=== PATIENT | male | born 1950 | race Caucasian/White ===

== ENCOUNTER 2018-01-20 10:05 | Observation (INO) | payer OTHER, SELFPAY ==
--- NOTE | 2018-01-20 10:27 | ED.WEAKNESS ---
HPI - Weakness General Chief complaint: Weakness Stated complaint: LEFT LEG 'ALL OVER THE PLACE' Time Seen by Provider: 01/20/18 10:05 Source: patient Mode of arrival: ambulatory Limitations: no limitations History of Present Illness HPI Narrative: Patient presents to the emergency department this morning with a chief complaint of left leg feeling weird since last night at 11:00 p.m.. He denies any injury, fever chills, or other neurologic symptoms such as blurred vision trouble with speech or thought process. He denies any history of the same or history of stroke or TIA. He does have a longstanding history of a lumbar problem and he had some weakness in his left great toe but states this is a tremendous departure from the normal for him. MD Complaint: focal weakness Onset (ago): hour(s) (2299 last night) Duration: constant Location: [facility] Migration: none Severity: mild Related Data Home Medications Medication Instructions Recorded Confirmed doxepin 25 mg PO #0 02/22/13 meloxicam [Mobic] 15 mg PO [facility] #0 10/29/17 Allergies Allergy/AdvReac Type Severity Reaction Status Date / Time No Known Drug Allergies Allergy Verified 01/20/18 11:51 Review of Systems Review of Systems All systems reviewed & are unremarkable except as noted in HPI and below Constitutional Denies chills, Denies excessive sweating, Denies fatigue, Denies fever(s), Denies lethargy and Reports weakness Eyes Denies change in vision, Denies eye discharge, Denies irritation and Denies loss of vision Cardiovascular Denies dyspnea and Denies dyspnea on exertion Respiratory Denies cough, Denies dyspnea, Denies dyspnea on exertion and Denies wheezing Genitourinary Denies hematuria, Denies flank pain, Denies urinary incontinence and Denies urinary urgency Musculoskeletal Reports system reviewed and no additional complaints, except as docu, Reports abnormal gait and Reports muscle weakness Integumentary/Breasts Denies pruritus, Denies erythema, Denies rash and Denies wounds Neurologic Reports abnormal gait, Denies confusion, Denies loss of vision and Reports weakness Comments: NIH Stroke Scale 1a. LOC: Patient is alert and keenly responsive (0) 1b. LOC Questions: Patient answers both LOC questions accurately (0) 1c. LOC Commands: Patient performs both tasks correctly (0) 2. Best Gaze: Normal (0) 3. Visual: No visual loss (0) Psychiatric Denies anxiety, Denies confusion, Denies depression, Denies homicidal ideation and Denies suicidal ideation Endocrine Denies excessive sweating and Denies fatigue Hematologic/Lymphatic Denies easy bleeding Allergic/Immunologic Denies wheezing PFSH Medical History HTN (hypertension) (Chronic) Hyperlipidemia (Chronic) Peripheral neuropathy (Chronic) Exam Narrative Exam Narrative: Pleasant 67-year-old male in no significant distress Const General: cooperative and well developed Nutritional Appearance: well nourished Orientation: alert, awake, oriented x3 and not confused [facility] Head: normocephalic and atraumatic Ears: external ears normal and TM's normal bilaterally Nose: external nose normal and No nasal discharge Face and sinus: sinuses nontender, face symmetric, no sinus tenderness and No dry mucous membranes Mouth: oral mucosae normal and moist mucous membranes Teeth and gingiva: dentition normal Throat: tonsils normal and uvula midline Neck Neck: normal visual inspection, trachea midline, No lymphadenopathy, No midline deformity and No JVD Lymphatic: No lymphedema Resp Effort & Inspection: normal respiratory effort, able to speak in complete sentences, no respiratory distress and no use of accessory muscles Auscultation: clear to auscultation bilaterally, no rales, no rhonchi and no wheezes GI Inspection: non-distended Palpation: soft, no hepatosplenomegaly, No guarding, No pulsatile mass and No tender Auscultation: normal bowel sounds Back/Spine/Pelvis Back: No CVA tenderness Cervical Spine: cervical ROM normal and No pain with cervical ROM Thoracic/Lumbar Spine: thoracic and lumbar spine normal to inspection Other: No signs of cauda equina such as saddle anesthesia Skin General: no rashes or lesions noted, No jaundice and No petechiae Neuro General: alert, awake and oriented x3 Cranial Nerves: CN's II-XI intact bilaterally Speech: speech normal Motor: No strength 5/5 throughout Sensory Exam: no sensory deficits noted Coordination: gogdbv-cu-kxgn test normal and bfrf-wy-dkpx test normal Pupils: Normal pupillary reactivity/response: bilateral Other: NIH Stroke Scale 1a. LOC: Patient is alert and keenly responsive (0) 1b. LOC Questions: Patient answers both LOC questions accurately (0) 1c. LOC Commands: Patient performs both tasks correctly (0) 2. Best Gaze: Normal (0) 3. Visual: No visual loss (0) 4. Facial palsy: Normal symmetrical movements (0) 5. Motor arm: No drift (0) 6. Motor le - LEFT LEG 7. Limb ataxia: Absent (0) 8. Sensory: Normal (0) 9. Best language: No aphasia; normal (0) 10. Dysarthria: Normal (0) 11. Extinction and inattention: No abnormality (0) NIHSS: 1 MDM - Weakness Medical Records Attestation: I reviewed the patient's medical records. Lab Data Attestation: I reviewed the patient's lab results. Result diagrams: 01/20/18 11:02 Lab Results 01/20/18 01/20/18 Range/Units 11:02 11:02 PT 11.5 (10.1-12.7) SECONDS INR 1.1 (0.9-1.3) APTT 31 (26.4-36.2) SECONDS Sodium 137 (137-145) mmol/L Potassium 4.3 (3.4-5.1) mmol/L Chloride 101.0 (98-107) mmol/L Carbon Dioxide 24.0 (22-32) mmol/L BUN 12.0 (9-20) mg/dL Creatinine 1.00 (0.66-1.25) mg/dL Estimated GFR > 60.0 (>60) mL/min BUN/Creatinine Ratio 12.0 (6-22) Glucose 181 H (80-110) mg/dL Calcium 9.1 (8.4-10.2) mg/dL Imaging Data CT scan - head: Radiologist's impression: PROCEDURE: CT HEAD/BRAIN WO CON INDICATIONS: stroke symptoms since 2300 hours. LLE weakness/ataxia TECHNIQUE: Noncontrast 4.5 mm thick angled axial sections acquired from the foramen magnum to the vertex, with coronal and sagittal reformats. For radiation dose reduction, the following was used: automated exposure control, adjustment of mA and/or kV according to patient size. COMPARISON: None. FINDINGS: Image quality: Excellent. CSF spaces: Basal cisterns are patent. No extra-axial fluid collections. The ventricles are symmetric in size and shape. Brain: No intracranial bleeds or masses. There is cerebral volume loss for age, with resultant ventricular and sulcal prominence. There are periventricular and deep white matter chronic small vessel ischemic changes. Incidental note made of cavum septum pellucidum. There is intracranial internal carotid artery atherosclerosis. Skull and face: Calvarium and visualized facial bones appear intact, without suspicious lesions. Sinuses: Visualized sinuses and mastoids are clear. IMPRESSION: No acute intracranial disease process. Dictated by: Shyanne Jones MD, PhD on 01/20/2018 at 11:11 Approved by: Shyanne Jones MD, PhD on 01/20/2018 at 11:16 ECG Data Attestation: I personally reviewed and interpreted this ECG as follows: Prior ECG tracings: not available for review Interpretation: Normal sinus rhythm with a rate of 77. No ST or T-wave abnormalities consistent with ischemia Course Orders Ordered: ED Orders 01/20/18 10:46 CT head/brain wo con Stat Rapid Drug Screen, Urine Stat EKG-12 Lead Stat 01/20/18 11:02 Basic Metabolic Panel Stat Partial Thromboplastin Time Stat Prothrombin Time INR Stat 01/20/18 13:01 Complete Blood Count AUTO DIFF Stat Discontinued Medications Aspirin (Aspirin Chew) 324 mg PO NOW ONE Stop: 01/20/18 10:47 Last Admin: 01/20/18 11:00 Dose: 324 mg Sodium Chloride (Normal Saline 0.9%) 1,000 mls @ 150 mls/hr IV CONT NASIR Last Admin: 01/20/18 11:18 Dose: 150 mls/hr Consultations Consultation #1: Jana is happy to accept on his service Last Vital Signs Pulse 65 01/20/18 12:25 Resp 14 01/20/18 12:25 BP 146/78 H 01/20/18 12:25 Pulse Ox 97 01/20/18 12:25 Discharge Plan Departure Patient Disposition: Admitted as Observation Discharge Date/Time: 01/20/18 13:21 Admit Date/Time: 01/20/18 13:02 Admit Provider: Uday Bates
--- NOTE | 2018-01-20 10:46 | DI.CT.S_ITS ---
PROCEDURE: CT HEAD/BRAIN WO CON INDICATIONS: stroke symptoms since 2300 hours. LLE weakness/ataxia TECHNIQUE: Noncontrast 4.5 mm thick angled axial sections acquired from the foramen magnum to the vertex, with coronal and sagittal reformats. For radiation dose reduction, the following was used: automated exposure control, adjustment of mA and/or kV according to patient size. COMPARISON: None. FINDINGS: Image quality: Excellent. CSF spaces: Basal cisterns are patent. No extra-axial fluid collections. The ventricles are symmetric in size and shape. Brain: No intracranial bleeds or masses. There is cerebral volume loss for age, with resultant ventricular and sulcal prominence. There are periventricular and deep white matter chronic small vessel ischemic changes. Incidental note made of cavum septum pellucidum. There is intracranial internal carotid artery atherosclerosis. Skull and face: Calvarium and visualized facial bones appear intact, without suspicious lesions. Sinuses: Visualized sinuses and mastoids are clear. IMPRESSION: No acute intracranial disease process. Dictated by: Shyanne Jones MD, PhD on 01/20/2018 at 11:11 Approved by: Shyanne Jones MD, PhD on 01/20/2018 at 11:16
[2018-01-20] MEDS: ASPIRIN 81 MG TAB 324 MG PO (11:00)
--- NOTE | 2018-01-20 11:11 | ED_ITS ---
HPI - Weakness General Chief complaint: Weakness Stated complaint: LEFT LEG 'ALL OVER THE PLACE' Time Seen by Provider: 01/20/18 10:05 Source: patient Mode of arrival: ambulatory Limitations: no limitations History of Present Illness HPI Narrative: Patient presents to the emergency department this morning with a chief complaint of left leg feeling weird since last night at 11:00 p.m.. He denies any injury, fever chills, or other neurologic symptoms such as blurred vision trouble with speech or thought process. He denies any history of the same or history of stroke or TIA. He does have a longstanding history of a lumbar problem and he had some weakness in his left great toe but states this is a tremendous departure from the normal for him. MD Complaint: focal weakness Onset (ago): hour(s) (2299 last night) Duration: constant Location: [facility] Migration: none Severity: mild Related Data Home Medications Medication Instructions Recorded Confirmed doxepin 25 mg PO #0 02/22/13 meloxicam [Mobic] 15 mg PO [facility] #0 10/29/17 Allergies Allergy/AdvReac Type Severity Reaction Status Date / Time No Known Drug Allergies Allergy Verified 01/20/18 11:51 Review of Systems Review of Systems All systems reviewed & are unremarkable except as noted in HPI and below Constitutional Denies chills, Denies excessive sweating, Denies fatigue, Denies fever(s), Denies lethargy and Reports weakness Eyes Denies change in vision, Denies eye discharge, Denies irritation and Denies loss of vision Cardiovascular Denies dyspnea and Denies dyspnea on exertion Respiratory Denies cough, Denies dyspnea, Denies dyspnea on exertion and Denies wheezing Genitourinary Denies hematuria, Denies flank pain, Denies urinary incontinence and Denies urinary urgency Musculoskeletal Reports system reviewed and no additional complaints, except as docu, Reports abnormal gait and Reports muscle weakness Integumentary/Breasts Denies pruritus, Denies erythema, Denies rash and Denies wounds Neurologic Reports abnormal gait, Denies confusion, Denies loss of vision and Reports weakness Comments: NIH Stroke Scale 1a. LOC: Patient is alert and keenly responsive (0) 1b. LOC Questions: Patient answers both LOC questions accurately (0) 1c. LOC Commands: Patient performs both tasks correctly (0) 2. Best Gaze: Normal (0) 3. Visual: No visual loss (0) Psychiatric Denies anxiety, Denies confusion, Denies depression, Denies homicidal ideation and Denies suicidal ideation Endocrine Denies excessive sweating and Denies fatigue Hematologic/Lymphatic Denies easy bleeding Allergic/Immunologic Denies wheezing PFSH Medical History HTN (hypertension) (Chronic) Hyperlipidemia (Chronic) Peripheral neuropathy (Chronic) Exam Narrative Exam Narrative: Pleasant 67-year-old male in no significant distress Const General: cooperative and well developed Nutritional Appearance: well nourished Orientation: alert, awake, oriented x3 and not confused [facility] Head: normocephalic and atraumatic Ears: external ears normal and TM's normal bilaterally Nose: external nose normal and No nasal discharge Face and sinus: sinuses nontender, face symmetric, no sinus tenderness and No dry mucous membranes Mouth: oral mucosae normal and moist mucous membranes Teeth and gingiva: dentition normal Throat: tonsils normal and uvula midline Neck Neck: normal visual inspection, trachea midline, No lymphadenopathy, No midline deformity and No JVD Lymphatic: No lymphedema Resp Effort & Inspection: normal respiratory effort, able to speak in complete sentences, no respiratory distress and no use of accessory muscles Auscultation: clear to auscultation bilaterally, no rales, no rhonchi and no wheezes GI Inspection: non-distended Palpation: soft, no hepatosplenomegaly, No guarding, No pulsatile mass and No tender Auscultation: normal bowel sounds Back/Spine/Pelvis Back: No CVA tenderness Cervical Spine: cervical ROM normal and No pain with cervical ROM Thoracic/Lumbar Spine: thoracic and lumbar spine normal to inspection Other: No signs of cauda equina such as saddle anesthesia Skin General: no rashes or lesions noted, No jaundice and No petechiae Neuro General: alert, awake and oriented x3 Cranial Nerves: CN's II-XI intact bilaterally Speech: speech normal Motor: No strength 5/5 throughout Sensory Exam: no sensory deficits noted Coordination: auzfom-mk-ogct test normal and oszi-xi-spzu test normal Pupils: Normal pupillary reactivity/response: bilateral Other: NIH Stroke Scale 1a. LOC: Patient is alert and keenly responsive (0) 1b. LOC Questions: Patient answers both LOC questions accurately (0) 1c. LOC Commands: Patient performs both tasks correctly (0) 2. Best Gaze: Normal (0) 3. Visual: No visual loss (0) 4. Facial palsy: Normal symmetrical movements (0) 5. Motor arm: No drift (0) 6. Motor le - LEFT LEG 7. Limb ataxia: Absent (0) 8. Sensory: Normal (0) 9. Best language: No aphasia; normal (0) 10. Dysarthria: Normal (0) 11. Extinction and inattention: No abnormality (0) NIHSS: 1 MDM - Weakness Medical Records Attestation: I reviewed the patient's medical records. Lab Data Attestation: I reviewed the patient's lab results. Result diagrams: 01/20/18 11:02 Lab Results 01/20/18 01/20/18 Range/Units 11:02 11:02 PT 11.5 (10.1-12.7) SECONDS INR 1.1 (0.9-1.3) APTT 31 (26.4-36.2) SECONDS Sodium 137 (137-145) mmol/L Potassium 4.3 (3.4-5.1) mmol/L Chloride 101.0 (98-107) mmol/L Carbon Dioxide 24.0 (22-32) mmol/L BUN 12.0 (9-20) mg/dL Creatinine 1.00 (0.66-1.25) mg/dL Estimated GFR > 60.0 (>60) mL/min BUN/Creatinine Ratio 12.0 (6-22) Glucose 181 H (80-110) mg/dL Calcium 9.1 (8.4-10.2) mg/dL Imaging Data CT scan - head: Radiologist's impression: PROCEDURE: CT HEAD/BRAIN WO CON INDICATIONS: stroke symptoms since 2300 hours. LLE weakness/ataxia TECHNIQUE: Noncontrast 4.5 mm thick angled axial sections acquired from the foramen magnum to the vertex, with coronal and sagittal reformats. For radiation dose reduction, the following was used: automated exposure control, adjustment of mA and/or kV according to patient size. COMPARISON: None. FINDINGS: Image quality: Excellent. CSF spaces: Basal cisterns are patent. No extra-axial fluid collections. The ventricles are symmetric in size and shape. Brain: No intracranial bleeds or masses. There is cerebral volume loss for age , with resultant ventricular and sulcal prominence. There are periventricular and deep white matter chronic small vessel ischemic changes. Incidental note made of cavum septum pellucidum. There is intracranial internal carotid artery atherosclerosis. Skull and face: Calvarium and visualized facial bones appear intact, without suspicious lesions. Sinuses: Visualized sinuses and mastoids are clear. IMPRESSION: No acute intracranial disease process. Dictated by: Shyanne Jones MD, PhD on 01/20/2018 at 11:11 Approved by: Shyanne Jones MD, PhD on 01/20/2018 at 11:16 ECG Data Attestation: I personally reviewed and interpreted this ECG as follows: Prior ECG tracings: not available for review Interpretation: Normal sinus rhythm with a rate of 77. No ST or T-wave abnormalities consistent with ischemia Course Orders Ordered: ED Orders 01/20/18 10:46 CT head/brain wo con Stat Rapid Drug Screen, Urine Stat EKG-12 Lead Stat 01/20/18 11:02 Basic Metabolic Panel Stat Partial Thromboplastin Time Stat Prothrombin Time INR Stat 01/20/18 13:01 Complete Blood Count AUTO DIFF Stat Discontinued Medications Aspirin (Aspirin Chew) 324 mg PO NOW ONE Stop: 01/20/18 10:47 Last Admin: 01/20/18 11:00 Dose: 324 mg Sodium Chloride (Normal Saline 0.9%) 1,000 mls @ 150 mls/hr IV CONT NASIR Last Admin: 01/20/18 11:18 Dose: 150 mls/hr Consultations Consultation #1: Jana is happy to accept on his service Last Vital Signs Pulse 65 01/20/18 12:25 Resp 14 01/20/18 12:25 BP 146/78 H 01/20/18 12:25 Pulse Ox 97 01/20/18 12:25 Discharge Plan Departure Patient Disposition: Admitted as Observation Discharge Date/Time: 01/20/18 13:21 Admit Date/Time: 01/20/18 13:02 Admit Provider: Uday Bates
[2018-01-20 11:18] LABS: INR 1.1 (0.9-1.3); Prothrombin Time 11.5 SECONDS (10.1-12.7)
[2018-01-20] MEDS: SODIUM CHLORIDE 0.9% 1,000 ML 150 ML IV (11:18)
[2018-01-20 11:20] LABS: PTT Partial Thromboplastin Tim 31 SECONDS (26.4-36.2)
[2018-01-20 11:22] LABS: Calcium 9.1 mg/dL (8.4-10.2); Estimated Glomerular Filt Rate > 60.0 mL/min (>60); Glucose 181 mg/dL (80-110); HEMOLYSIS < 15 (0-50); Potassium 4.3 mmol/L (3.4-5.1); Sodium 137 mmol/L (137-145)
[2018-01-20 11:55] VITALS: BMI 29.2
[2018-01-20 12:25] VITALS: BP 146/78; PULSE 65; RESP 14; O2SAT 97
[2018-01-20 13:11] VITALS: BP 128/76; PULSE 64; RESP 15; O2SAT 96
[2018-01-20 13:30] VITALS: BP 129/78; PULSE 62; RESP 18; TEMP 36.5; O2SAT 97
--- NOTE | 2018-01-20 13:34 | DI.MRI.S_ITS ---
PROCEDURE: MR STROKE Pre- and post-contrast brain MRI, non-contrast brain MR angiogram, pre- and postcontrast neck MR angiogram INDICATIONS: CVA, LLE weakness TECHNIQUE: Brain: Noncontrast axial T1 spin echo, axial T2 fast spin echo, sagittal and axial FLAIR, coronal T2 fast spin echo, axial gradient echo, axial diffusion and ADC through the brain. After the administration of contrast, axial 3D VIBE of the cranial vasculature and brain. Brain MRA: Non-contrast 3-D time of flight MR angiogram, with multiple fcyrxje-ncmwfleuj-mzbaisqvhf (MIP) reformats performed. Neck MRA: Axial and sagittal TruFISP through the neck. Coronal dynamic MR angiogram during administration of contrast in the arterial and venous phases, with 3-dimenstional vpmulpu-yccqhbwvm-wawjczhucf (MIP) reformats constructed from subtraction images. COMPARISON: [facility], CT from 01/20/2018 FINDINGS: Image quality: Excellent. BRAIN: CSF spaces: Ventricles are normal in size and shape. Basal cisterns are patent. No extra-axial fluid collections. Brain: No intracranial bleeds or mass effects. Moise-white matter interface is normal. Diffusion weighted images show no acute ischemic insults. Brainstem appears normal. Normal intravascular flow voids are present. No abnormal intracranial enhancement. There is increased T2 signal in the subcortical and periventricular white matter. Skull and face: Calvarial marrow signal is normal. Orbits appear normal. Sinuses: Sinuses and mastoids are clear. BRAIN MR ANGIOGRAM: Anterior circulation: Intracranial internal carotid arteries are normal in size and enhancement. The flow within the paired anterior cerebral arteries is normal and symmetric. The flow within the middle cerebral arteries is normal and symmetric. The anterior communicating artery is seen. No stenoses, occlusions, or aneurysms. Posterior circulation: The visualized portions of the vertebral arteries demonstrate normal caliber, and join to form a normal appearing basilar artery. The flow within the posterior cerebral arteries is normal and symmetric other than origin of the right posterior cerebral artery which is a benign variant. No stenoses, occlusions, or aneurysms. NECK MR ANGIOGRAM: Carotids: Great vessels demonstrate a conventional anatomy as they arise from the aortic arch. The origins of the common carotid arteries appear patent. The calibers and courses of both common carotid arteries are normal. The bifurcation regions demonstrate hemodynamically insignificant atheromatous plaque bilaterally. The internal carotid arteries demonstrate normal course and caliber. Posterior circulation: The origins of the right vertebral artery appears patent. The left vertebral artery origin is obscured by artifact and cannot be evaluated. More superior portions of both vertebral arteries demonstrate normal course and caliber, and join to form a normal appearing basilar artery. Miscellaneous: Subclavian arteries appear patent. Pre-contrast images through the neck show no soft tissue abnormalities. IMPRESSION: BRAIN MRI: No MRI evidence of acute intracranial pathology. Increased T2 signal in the subcortical and periventricular white matter most with chronic benign ischemic change given the patient's age. BRAIN MR ANGIOGRAM: No MRA evidence of acute intracranial arterial pathology. NECK MR ANGIOGRAM: No MRA evidence of acute arterial pathology in the neck. Dictated by: Merlin Jiménez M.D. on 01/20/2018 at 14:34 Approved by: Merlin Jiménez M.D. on 01/20/2018 at 14:43
[2018-01-20 13:40] LABS: Add Manual Diff / Slide Review NO; Basophils Percent Auto 0.8 % (0-2); Eosinophils Percent Auto 2.9 % (2-4); Hematocrit 39.4 % (41-53); Hemoglobin 13.7 g/dL (13.5-17.5); Lymphocytes Percent Auto 14.5 % (25-40); Mean Corpuscular HGB Conc 34.7 % (30-36); Mean Corpuscular Hemoglobin 31.7 PG (26-34); Mean Corpuscular Volume 91.2 fL (80-100); Neutrophils Absolute Auto 4500 /uL (3000-5900); Neutrophils Percent Auto 76.8 % (50-75); Platelet Count 347 X10^3/uL (150-400); Red Blood Cell Count 4.32 X10^6/uL (4.5-5.9); Red Cell Distribution Width 12.7 % (11.6-14.8); White Blood Cell Count 5.9 X10^3/uL (4.5-11.0)
--- NOTE | 2018-01-20 13:48 | PM.HP.1 ---
History of Present Illness Chief complaint: Stroke Narrative: Dru Mcpherson is a 67 year old male patient of RAHEEM Edwards with history of hypertension, hyperlipidemia, peripheral neuropathy brought by friend to emergency department due to left leg weakness. Patient states he woke up around 10 30 last night and noticed his left leg was extremely weak where he had a hard time walking down the stairs even with holding the hand rail. He states his balance was very unsteady and he almost fell. He managed with difficulty to get back up the stairs to his bedroom and drag himself into bed. He noticed his left leg was still weak when he woke up this morning and eventually called his PCP office who directed him to go to the ER. Patient states he has some mild weakness in the left ankle due to lumbar disease but this weakness is much different and extreme. He denies other symptoms such as loss of vision, headache, facial droop, difficulty with speech, weakness in the arms. Head CT negative for acute findings. EKG with normal rhythm. PFSH Medical History CAD (coronary artery disease) (Acute) Hyperlipidemia (Chronic) HTN (hypertension) (Chronic) Peripheral neuropathy (Chronic) COPD (chronic obstructive pulmonary disease) (Acute) Depression (Acute) Insomnia (Acute) Spinal stenosis (Acute) Surgical History Total knee replacement status (Acute) Social History lives independently: Yes marital status: Smoking Status: Former smoker Meds Generic Name Dose Route Start Last Admin Trade Name Freq PRN Reason Stop Dose Admin Acetaminophen 650 mg 01/20/18 13:29 Tylenol PO Q6HR PRN As Needed for Fever/Mild Pain Atorvastatin Calcium 40 mg 01/20/18 21:00 Lipitor PO BEDTIME NASIR Clopidogrel Bisulfate 75 mg 01/21/18 09:00 Plavix PO DAILY NASIR Doxepin HCl 100 mg 01/20/18 21:00 Sinequan PO BEDTIME NASIR Enoxaparin Sodium 40 mg 01/21/18 09:00 Lovenox SUBCUT DAILY NASIR Gabapentin 900 mg 01/20/18 21:00 Neurontin PO BID NASIR Lisinopril 20 mg 01/21/18 09:00 Zestril PO DAILY NASIR Magnesium Hydroxide 30 ml 01/20/18 13:29 Milk Of Magnesia PO DAILY PRN Constipation Metoprolol Succinate 25 mg 01/21/18 09:00 Toprol Xl PO DAILY NASIR Ondansetron HCl 4 mg 01/20/18 13:29 Zofran IV Q8HR PRN Nausea And Vomiting Temazepam 15 mg 01/20/18 13:43 Resoril PO BEDTIME PRN Sleep Venlafaxine HCl 150 mg 01/21/18 09:00 Effexor Xr PO DAILY NASIR Allergies Allergy/AdvReac Type Severity Reaction Status Date / Time No Known Drug Allergies Allergy Verified 01/20/18 11:51 Review of Systems Review of Systems All systems reviewed & are unremarkable except as noted in HPI and below Exam Vital Signs (past 8 hours): Vital Signs - 8 hr 01/20/18 12:25 01/20/18 13:11 Pulse Rate 65 64 Respiratory Rate 14 15 Blood Pressure 128/76 H Blood Pressure [Right Arm] 146/78 H Pulse Oximetry 97 96 Pulse Oximetry 96 Oxygen Delivery Method Room Air Narrative Exam Narrative: GENERAL: This is an alert well-nourished, well-developed patient, in no acute distress. HEAD: Face symmetric. Atraumatic. Normocephalic. EYES: Pupils equal, round and reactive. Extraocular motions intact. No scleral icterus. No injection or drainage. OROPHARYNX: moist mucosa NECK: Trachea midline. No JVD or lymphadenopathy. CARDIOVASCULAR: Regular rate and rhythm without murmurs, gallops, or rubs. RESPIRATORY: Clear to auscultation bilaterally. GASTROINTESTINAL: Abdomen nondistended, soft, non-tender. No hepato-splenomegaly, or palpable masses. EXTREMITIES: No edema. NEUROLOGICAL: Alert, well oriented, speech is intact, no pronator drift, vymisv-ql-eney intact bilaterally, no discernible weakness at this time in either leg, there is mild difficulty with left heel to joiner, gait not assessed SKIN: warm, dry, no rash Objective Labs Result Diagrams: 01/20/18 Unknown 01/20/18 11:02 Labs: Laboratory Results - last 24 hr 01/20/18 01/20/18 01/20/18 11:02 11:02 Unknown WBC 5.9 RBC 4.32 L Hgb 13.7 Hct 39.4 L MCV 91.2 MCH 31.7 MCHC 34.7 RDW 12.7 Plt Count 347 Neut % (Auto) 76.8 H Lymph % (Auto) 14.5 L [place] % (Auto) 5.0 Eos % (Auto) 2.9 Baso % (Auto) 0.8 Neut # (Auto) 4500 PT 11.5 INR 1.1 APTT 31 Sodium 137 Potassium 4.3 Chloride 101.0 Carbon Dioxide 24.0 BUN 12.0 Creatinine 1.00 Estimated GFR > 60.0 BUN/Creatinine Ratio 12.0 Glucose 181 H Calcium 9.[address] scan - head: Radiologist's impression: No acute findings ECG: Normal sinus rhythm, normal Assessment & Plan Plan: Plan: 1. Probable acute CVA: Patient presents with over 12 hr of left leg weakness with loss of balance. He has multiple stroke risk factors. Currently normotensive with improving neurological exam. Plan: Neuro checks, continue routine BP and cholesterol medications, telemetry, stroke protocol MRI, transthoracic echo, PT and OT consults. He can be on general diet. 2. Hyperglycemia: Glucose 181. Patient without prior history of diabetes. Check hemoglobin A1c. Chem BG 4 times daily. 3. DVT prophylaxis: Lovenox low dose Scores ABCD2 Age >= 60 years: yes Initial BP. Either SBP >= 140 or DBP >= 90.: yes Clinical features of the TIA: unilateral weakness Duration of symptoms: >= 60 minutes History of diabetes: no ABCD2 Score: 6
--- NOTE | 2018-01-20 14:22 | P.HP_ITS ---
History of Present Illness Chief complaint: Stroke Narrative: Dru Mcpherson is a 67 year old male patient of RAHEEM Edwards with history of hypertension, hyperlipidemia, peripheral neuropathy brought by friend to emergency department due to left leg weakness. Patient states he woke up around 10 30 last night and noticed his left leg was extremely weak where he had a hard time walking down the stairs even with holding the hand rail. He states his balance was very unsteady and he almost fell. He managed with difficulty to get back up the stairs to his bedroom and drag himself into bed. He noticed his left leg was still weak when he woke up this morning and eventually called his PCP office who directed him to go to the ER. Patient states he has some mild weakness in the left ankle due to lumbar disease but this weakness is much different and extreme. He denies other symptoms such as loss of vision, headache, facial droop, difficulty with speech, weakness in the arms. Head CT negative for acute findings. EKG with normal rhythm. PFSH Medical History CAD (coronary artery disease) (Acute) Hyperlipidemia (Chronic) HTN (hypertension) (Chronic) Peripheral neuropathy (Chronic) COPD (chronic obstructive pulmonary disease) (Acute) Depression (Acute) Insomnia (Acute) Spinal stenosis (Acute) Surgical History Total knee replacement status (Acute) Social History lives independently: Yes marital status: Smoking Status: Former smoker Meds Generic Name Dose Route Start Last Admin Trade Name Freq PRN Reason Stop Dose Admin Acetaminophen 650 mg 01/20/18 13:29 Tylenol PO Q6HR PRN As Needed for Fever/Mild Pain Atorvastatin Calcium 40 mg 01/20/18 21:00 Lipitor PO BEDTIME NASIR Clopidogrel Bisulfate 75 mg 01/21/18 09:00 Plavix PO DAILY NASIR Doxepin HCl 100 mg 01/20/18 21:00 Sinequan PO BEDTIME NASIR Enoxaparin Sodium 40 mg 01/21/18 09:00 Lovenox SUBCUT DAILY NASIR Gabapentin 900 mg 01/20/18 21:00 Neurontin PO BID NASIR Lisinopril 20 mg 01/21/18 09:00 Zestril PO DAILY NASIR Magnesium Hydroxide 30 ml 01/20/18 13:29 Milk Of Magnesia PO DAILY PRN Constipation Metoprolol Succinate 25 mg 01/21/18 09:00 Toprol Xl PO DAILY NASIR Ondansetron HCl 4 mg 01/20/18 13:29 Zofran IV Q8HR PRN Nausea And Vomiting Temazepam 15 mg 01/20/18 13:43 Resoril PO BEDTIME PRN Sleep Venlafaxine HCl 150 mg 01/21/18 09:00 Effexor Xr PO DAILY NASIR Allergies Allergy/AdvReac Type Severity Reaction Status Date / Time No Known Drug Allergies Allergy Verified 01/20/18 11:51 Review of Systems Review of Systems All systems reviewed & are unremarkable except as noted in HPI and below Exam Vital Signs (past 8 hours): Vital Signs - 8 hr 3 01/20/18 12:25 01/20/18 13:11 Pulse Rate 65 64 Respiratory Rate 14 15 Blood Pressure 128/76 H Blood Pressure [Right Arm] 146/78 H Pulse Oximetry 97 96 Pulse Oximetry 96 Oxygen Delivery Method Room Air Narrative Exam Narrative: GENERAL: This is an alert well-nourished, well-developed patient , in no acute distress. HEAD: Face symmetric. Atraumatic. Normocephalic. EYES: Pupils equal, round and reactive. Extraocular motions intact. No scleral icterus. No injection or drainage. OROPHARYNX: moist mucosa NECK: Trachea midline. No JVD or lymphadenopathy. CARDIOVASCULAR: Regular rate and rhythm without murmurs, gallops, or rubs. RESPIRATORY: Clear to auscultation bilaterally. GASTROINTESTINAL: Abdomen nondistended, soft, non-tender. No hepato- splenomegaly, or palpable masses. EXTREMITIES: No edema. NEUROLOGICAL: Alert, well oriented, speech is intact, no pronator drift, finger- to-nose intact bilaterally, no discernible weakness at this time in either leg, there is mild difficulty with left heel to joiner, gait not assessed SKIN: warm, dry, no rash Objective Labs Result Diagrams: 01/20/18 Unknown 01/20/18 11:02 Labs: Laboratory Results - last 24 hr 01/20/18 01/20/18 01/20/18 11:02 11:02 Unknown WBC 5.9 RBC 4.32 L Hgb 13.7 Hct 39.4 L MCV 91.2 MCH 31.7 MCHC 34.7 RDW 12.7 Plt Count 347 Neut % (Auto) 76.8 H Lymph % (Auto) 14.5 L [place] % (Auto) 5.0 Eos % (Auto) 2.9 Baso % (Auto) 0.8 Neut # (Auto) 4500 PT 11.5 INR 1.1 APTT 31 Sodium 137 Potassium 4.3 Chloride 101.0 Carbon Dioxide 24.0 BUN 12.0 Creatinine 1.00 Estimated GFR > 60.0 BUN/Creatinine Ratio 12.0 Glucose 181 H Calcium 9.[address] scan - head: Radiologist's impression: No acute findings ECG: Normal sinus rhythm, normal Assessment & Plan Plan: Plan: 1. Probable acute CVA: Patient presents with over 12 hr of left leg weakness with loss of balance. He has multiple stroke risk factors. Currently normotensive with improving neurological exam. Plan: Neuro checks, continue routine BP and cholesterol medications, telemetry, stroke protocol MRI, transthoracic echo, PT and OT consults. He can be on general diet. 2. Hyperglycemia: Glucose 181. Patient without prior history of diabetes. Check hemoglobin A1c. Chem BG 4 times daily. 3. DVT prophylaxis: Lovenox low dose Scores ABCD2 Age >= 60 years: yes Initial BP. Either SBP >= 140 or DBP >= 90.: yes Clinical features of the TIA: unilateral weakness Duration of symptoms: >= 60 minutes History of diabetes: no ABCD2 Score: 6
[2018-01-20 14:37] LABS: Hemoglobin A1C% w Est Avg Glu 5.8 % (4.0-6.0)
[2018-01-20 14:51] VITALS: BMI 29.2
--- NOTE | 2018-01-20 16:28 | PC.NURSE ---
Addendum entered by London Rodríguez R.N. 01/20/18 17:35: Call placed to Dr. Bates regarding orders on patient. All orders were cancelled. This nurse called to pharmacy regarding medication orders as patient has none. Per Dr. Bates this occurred during the transfer phase from [facility] to [facility]. states he will re-order all orders that were prev. placed on patient but where d/c'd. Original Note: patient is resting in bed peacefully watching t.v A&O x3. Bedside NIH screen done with patient by this nurse, patient passed w/ flying colors. Denies any pain during assessment. No notable weakness in any extremities. Call light w/ in reach, bed in low pos. states understanding ot use light w/ needs.
[2018-01-20 18:35] VITALS: BP 124/68; PULSE 59
[2018-01-20] MEDS: LISINOPRIL 20 MG TABLET PO (18:35)
[2018-01-20] MEDS: ASPIRIN EC 81 MG TABLET PO (18:35)
[2018-01-20 19:30] VITALS: BP 119/73; PULSE 56; RESP 17; TEMP 36.2; O2SAT 95
[2018-01-20] MEDS: GABAPENTIN 300 MG CAPSULE 900 MG PO (21:23)
[2018-01-20] MEDS: DOXEPIN 25 MG CAPSULE 100 MG PO (21:23)
[2018-01-21] VITALS (7 sets, daily range): BP systolic 103–117; BP diastolic 70–75; PULSE 57–70; RESP 16–19; TEMP 36.6–37.2; O2SAT 93–97
[2018-01-21] MEDS: ASPIRIN EC 81 MG TABLET PO (09:37)
[2018-01-21] MEDS: GABAPENTIN 300 MG CAPSULE 900 MG PO (09:38)
[2018-01-21] MEDS: ATORVASTATIN 20 MG TABLET 40 MG PO (09:38)
[2018-01-21] MEDS: VENLAFAXINE ER 75 MG CAP 150 MG PO (09:39)
[2018-01-21] MEDS: MELOXICAM 7.5 MG TABLET 15 MG PO (09:40)
[2018-01-21] MEDS: SODIUM CHLORIDE 0.9% FLUSH 10 ML IV (09:41)
--- NOTE | 2018-01-21 09:50 | PC.NURSE ---
Addendum entered by Kera Walker R.N. 01/21/18 13:18: Discharge: Patient asymptomatic at time of discharge. IV dc'd intact. Tele dc'd. Reviewed d/c instructions and med list thoroughly. No new meds, continue all old meds. Instructed to follow up with PCP Gabrielle within 1 week, call Tuesday to schedule. Emphasized importance of calling 911 with return of any stroke-like or TIA symptoms, and he verbalized understanding of the same. All personal belongings sent at discharge. Wheeled out to private vehicle accompanied by nursing staff. Original Note: Shift summary: Awake and alert, oriented X3 but reports his head feels kind of muddled this morning. NIH score 0. Hard to detect any discrepancy in strength in his extremities and he states he feels like his symptoms have more or less resolved. Speech clear. PERRLA. Denies chest pain, pressure or SOB. Denies any other pain. Reports burning in BLE's r/t chronic neuropathy. Lungs CTA, HRR. Just got back from walking halls with PT and did pretty well (see PT note for details). Back in chair at this time and agrees to call if he wants/needs to get up. Light and belongings in reach.
--- NOTE | 2018-01-21 12:19 | PM.DS.1 ---
History of Present Illness Chief complaint: Stroke Narrative: Dru Mcpherson is a 67 year old male patient of RAHEEM Edwards with history of hypertension, hyperlipidemia, peripheral neuropathy brought by friend to emergency department due to left leg weakness. Patient states he woke up around 10 30 last night and noticed his left leg was extremely weak where he had a hard time walking down the stairs even with holding the hand rail. He states his balance was very unsteady and he almost fell. He managed with difficulty to get back up the stairs to his bedroom and drag himself into bed. He noticed his left leg was still weak when he woke up this morning and eventually called his PCP office who directed him to go to the ER. Patient states he has some mild weakness in the left ankle due to lumbar disease but this weakness is much different and extreme. He denies other symptoms such as loss of vision, headache, facial droop, difficulty with speech, weakness in the arms. Head CT negative for acute findings. EKG with normal rhythm. Discharge Providers Date of admission: 01/20/18 13:02 Primary care physician: Rupali Anthony PA-C Consults: 01/20/18 18:05 Consult to Physical Therapy Evaluate & Treat Comment: LLE weakness, not sure if TIA, assess mobility for Physician Instructions: Evaluate and Treat Discharge provider: Uday Bates MD Summary Hospital Course: Patient had recovery of his left leg weakness which is pretty much back to his baseline with the mild ankle weakness due to neuropathy. Physical therapy assessed him prior to discharge and noted to be ambulating well. Brain MR stroke protocol showed no evidence of acute or old stroke, no atherosclerosis in the cerebral or neck arteries. Telemetry was normal. It is possible the left leg weakness was secondary to exacerbation of his spinal neuropathy versus TIA. There are no medication changes. Final diagnosis: 1. Acute left leg weakness, neuropathy versus TIA Time Spent with Patient Total time spent providing and/or coordinating discharge services: Greater than 30 min Exam Vital Signs (past 8 hours): Vital Signs - 8 hr 01/21/18 05:10 01/21/18 08:00 01/21/18 09:31 Temperature 97.8 F 98 F Pulse Rate 63 57 L 70 Respiratory Rate 17 17 Blood Pressure 116/74 105/70 109/74 Pulse Oximetry 94 95 97 01/21/18 09:40 01/21/18 11:22 Temperature 98 F Pulse Rate 70 67 Respiratory Rate 16 Blood Pressure 109/74 103/73 Pulse Oximetry 95 Pulse Oximetry 95 Oxygen Delivery Method Room Air Oxygen Flow Rate 0 Objective Labs Result Diagrams: 01/20/18 Unknown 01/20/18 11:02 Labs: Laboratory Results - last 24 hr 01/20/18 01/20/18 Unknown Unknown WBC 5.9 RBC 4.32 L Hgb 13.7 Hct 39.4 L MCV 91.2 MCH 31.7 MCHC 34.7 RDW 12.7 Plt Count 347 Neut % (Auto) 76.8 H Lymph % (Auto) 14.5 L [place] % (Auto) 5.0 Eos % (Auto) 2.9 Baso % (Auto) 0.8 Neut # (Auto) 4500 Hemoglobin A1c 5.8 Imaging MRI - head: Radiologist's impression: Dru Mcpherson - Patient Chart Chart Viewer Orders Nurse/Allied HealthMedicationsProvider NotesDiagnostics History & ProblemsAdministrativeOther Clinical ActivityFlowsheets Summary Diagnostics Subcategory View All Activity : All Time : All Subcategories Filter LABORATORY IMAGING MICROBIOLOGY PATHOLOGY OTHER DIAGNOSTICS BLOOD BANK TESTS DATE TYPE STATUS AUTHOR Hx 01/20/18 13:34 Brain MRI Signed Shiv Jiménez View Report History 01/20/18 10:[address] Signed Shyanne Jones View Report History View Report History View Report History Dru Mcpherson 67, M???1950 Portal ADM GREGG, AC 214 -1 180.34cm 95.254kg BSA: 2.15m?? BMI: 29.3kg/m?? Acc# [id number] Full Code Allergies No Known Drug Allergies Home Meds Confirmed MEDICATIONS (INSTRUCTIONS)sort LAST TAKEN aspirin [Aspirin Low Dose] (81 mg PO QDAY) Unknown atorvastatin (40 mg PO DAILY) 01/20/18 doxepin (100 mg PO BEDTIME) 01/19/18 gabapentin (900 mg PO BID) 01/20/18 lisinopril (20 mg PO QDAY) Unknown meloxicam (15 mg PO DAILY) 01/20/18 venlafaxine (150 mg PO DAILY) 01/20/18 Special Indicators No Data to Display Vital Signs Today 11:22 BP 103/73 Pulse 67 Resp 16 Temp 98 F O2 Sat 95 Lab Results Last 24 Hrs Most Recent Hematology WBC 5.9 X10^3/uL (4.5-11.0) 01/20/18 23:59 RBC 4.32 X10^6/uL (4.5-5.9) L 01/20/18 23:59 Hgb 13.7 g/dL (13.5-17.5) 01/20/18 23:59 Hct 39.4 % (41-53) L 01/20/18 23:59 MCV 91.2 fL (80-100) 01/20/18 23:59 MCH 31.7 PG (26-34) 01/20/18 23:59 MCHC 34.7 % (30-36) 01/20/18 23:59 RDW 12.7 % (11.6-14.8) 01/20/18 23:59 Plt Count 347 X10^3/uL (150-400) 01/20/18 23:59 Neut % (Auto) 76.8 % (50-75) H 01/20/18 23:59 Lymph % (Auto) 14.5 % (25-40) L 01/20/18 23:59 [place] % (Auto) 5.0 % (3-14) 01/20/18 23:59 Eos % (Auto) 2.9 % (2-4) 01/20/18 23:59 Baso % (Auto) 0.8 % (0-2) 01/20/18 23:59 Neut # (Auto) 4500 /uL ([id number]) 01/20/18 23:59 Chemistry Hemoglobin A1c 5.8 % (4.0-6.0) comment 01/20/18 23:59 Problems External Data Available ONSET CAD (coronary artery disease) Hyperlipidemia HTN (hypertension) Peripheral neuropathy Constipation Diagnostics Reports VidaDru clifford Ashley 67 M 1950 Allergy/Adv: No Known Drug Allergies CLOSE Brain MRI (Signed) Shiv Jiménez - 01/20/[address] (Signed) Shyanne Jones - 01/20/18 View Report History [address] [address] Magnetic Resonance Report Signed Patient: Dru Mcpherson Ashley MR#: [id number] : 1950 Acct:[id number] Age/Sex: 67 / M Date of Service: 01/20/18 Loc: 214-1 Accession Number: [id number] Procedure: MR stroke Ordering Provider: Uday Bates M.D. PROCEDURE: MR STROKE Pre- and post-contrast brain MRI, non-contrast brain MR angiogram, pre- and postcontrast neck MR angiogram INDICATIONS: CVA, LLE weakness TECHNIQUE: Brain: Noncontrast axial T1 spin echo, axial T2 fast spin echo, sagittal and axial FLAIR, coronal T2 fast spin echo, axial gradient echo, axial diffusion and ADC through the brain. After the administration of contrast, axial 3D VIBE of the cranial vasculature and brain. Brain MRA: Non-contrast 3-D time of flight MR angiogram, with multiple qujdoko-nulkdmsbr-cenjudgnzd (MIP) reformats performed. Neck MRA: Axial and sagittal TruFISP through the neck. Coronal dynamic MR angiogram during administration of contrast in the arterial and venous phases, with 3-dimenstional qrdsnaj-azfnjzjnw-kdatxdrqcg (MIP) reformats constructed from subtraction images. COMPARISON: [facility], CT from 01/20/2018 FINDINGS: Image quality: Excellent. BRAIN: CSF spaces: Ventricles are normal in size and shape. Basal cisterns are patent. No extra-axial fluid collections. Brain: No intracranial bleeds or mass effects. Moise-white matter interface is normal. Diffusion weighted images show no acute ischemic insults. Brainstem appears normal. Normal intravascular flow voids are present. No abnormal intracranial enhancement. There is increased T2 signal in the subcortical and periventricular white matter. Skull and face: Calvarial marrow signal is normal. Orbits appear normal. Sinuses: Sinuses and mastoids are clear. BRAIN MR ANGIOGRAM: Anterior circulation: Intracranial internal carotid arteries are normal in size and enhancement. The flow within the paired anterior cerebral arteries is normal and symmetric. The flow within the middle cerebral arteries is normal and symmetric. The anterior communicating artery is seen. No stenoses, occlusions, or aneurysms. Posterior circulation: The visualized portions of the vertebral arteries demonstrate normal caliber, and join to form a normal appearing basilar artery. The flow within the posterior cerebral arteries is normal and symmetric other than origin of the right posterior cerebral artery which is a benign variant. No stenoses, occlusions, or aneurysms. NECK MR ANGIOGRAM: Carotids: Great vessels demonstrate a conventional anatomy as they arise from the aortic arch. The origins of the common carotid arteries appear patent. The calibers and courses of both common carotid arteries are normal. The bifurcation regions demonstrate hemodynamically insignificant atheromatous plaque bilaterally. The internal carotid arteries demonstrate normal course and caliber. Posterior circulation: The origins of the right vertebral artery appears patent. The left vertebral artery origin is obscured by artifact and cannot be evaluated. More superior portions of both vertebral arteries demonstrate normal course and caliber, and join to form a normal appearing basilar artery. Miscellaneous: Subclavian arteries appear patent. Pre-contrast images through the neck show no soft tissue abnormalities. IMPRESSION: BRAIN MRI: No MRI evidence of acute intracranial pathology. Increased T2 signal in the subcortical and periventricular white matter most with chronic benign ischemic change given the patient's age. BRAIN MR ANGIOGRAM: No MRA evidence of acute intracranial arterial pathology. NECK MR ANGIOGRAM: No MRA evidence of acute arterial pathology in the neck. Dictated by: Merlin Jiménez M.D. on 01/20/2018 at 14:34 Approved by: Merlin Jiménez M.D. on 01/20/2018 at 14:43 Discharge Plan Discharge Plan Patient Disposition: Home, Self-Care Discharge Data Primary Care Provider: Rupali Anthony Attending Provider: Uday Bates Admit Date/Time: 01/20/18 13:02 Quality VTE Deep Vein Thrombosis/Pulmonary Embolism Present on Admission: No
--- NOTE | 2018-01-21 12:26 | P.DS_ITS ---
History of Present Illness Chief complaint: Stroke Narrative: Dru Mcpherson is a 67 year old male patient of RHAEEM Edwards with history of hypertension, hyperlipidemia, peripheral neuropathy brought by friend to emergency department due to left leg weakness. Patient states he woke up around 10 30 last night and noticed his left leg was extremely weak where he had a hard time walking down the stairs even with holding the hand rail. He states his balance was very unsteady and he almost fell. He managed with difficulty to get back up the stairs to his bedroom and drag himself into bed. He noticed his left leg was still weak when he woke up this morning and eventually called his PCP office who directed him to go to the ER. Patient states he has some mild weakness in the left ankle due to lumbar disease but this weakness is much different and extreme. He denies other symptoms such as loss of vision, headache, facial droop, difficulty with speech, weakness in the arms. Head CT negative for acute findings. EKG with normal rhythm. Discharge Providers Date of admission: 01/20/18 13:02 Primary care physician: Rupali Anthony PA-C Consults: 01/20/18 18:05 Consult to Physical Therapy Evaluate & Treat Comment: LLE weakness, not sure if TIA, assess mobility for Physician Instructions: Evaluate and Treat Discharge provider: Uday Bates MD Summary Hospital Course: Patient had recovery of his left leg weakness which is pretty much back to his baseline with the mild ankle weakness due to neuropathy. Physical therapy assessed him prior to discharge and noted to be ambulating well. Brain MR stroke protocol showed no evidence of acute or old stroke, no atherosclerosis in the cerebral or neck arteries. Telemetry was normal. It is possible the left leg weakness was secondary to exacerbation of his spinal neuropathy versus TIA. There are no medication changes. Final diagnosis: 1. Acute left leg weakness, neuropathy versus TIA Time Spent with Patient Total time spent providing and/or coordinating discharge services: Greater than 30 min Exam Vital Signs (past 8 hours): Vital Signs - 8 hr 3 01/21/18 05:10 01/21/18 08:00 01/21/18 09:31 Temperature 97.8 F 98 F Pulse Rate 63 57 L 70 Respiratory Rate 17 17 Blood Pressure 116/74 105/70 109/74 Pulse Oximetry 94 95 97 3 01/21/18 09:40 01/21/18 11:22 Temperature 98 F Pulse Rate 70 67 Respiratory Rate 16 Blood Pressure 109/74 103/73 Pulse Oximetry 95 Pulse Oximetry 95 Oxygen Delivery Method Room Air Oxygen Flow Rate 0 Objective Labs Result Diagrams: 01/20/18 Unknown 01/20/18 11:02 Labs: Laboratory Results - last 24 hr 01/20/18 01/20/18 Unknown Unknown WBC 5.9 RBC 4.32 L Hgb 13.7 Hct 39.4 L MCV 91.2 MCH 31.7 MCHC 34.7 RDW 12.7 Plt Count 347 Neut % (Auto) 76.8 H Lymph % (Auto) 14.5 L [place] % (Auto) 5.0 Eos % (Auto) 2.9 Baso % (Auto) 0.8 Neut # (Auto) 4500 Hemoglobin A1c 5.8 Imaging MRI - head: Radiologist's impression: Dru Mcpherson - Patient Chart Chart Viewer Orders Nurse/Allied HealthMedicationsProvider NotesDiagnostics History & ProblemsAdministrativeOther Clinical ActivityFlowsheets Summary Diagnostics Subcategory View All Activity : All Time : All Subcategories Filter LABORATORY IMAGING MICROBIOLOGY PATHOLOGY OTHER DIAGNOSTICS BLOOD BANK TESTS DATE TYPE STATUS AUTHOR Hx 01/20/18 13:34 Brain MRI Signed Shiv Jiménez View Report History 01/20/18 10:[address] Signed Shyanne Jones View Report History View Report History View Report History Dru Mcpherson 67, M?1950 Portal ADM GREGG, AC 214 -1 180.34cm 95.254kg BSA: 2.15m? BMI: 29.3kg/m? Acc# [id number] Full Code Allergies No Known Drug Allergies Home Meds Confirmed MEDICATIONS (INSTRUCTIONS)sort LAST TAKEN aspirin [Aspirin Low Dose] (81 mg PO QDAY) Unknown atorvastatin (40 mg PO DAILY) 01/20/18 doxepin (100 mg PO BEDTIME) 01/19/18 gabapentin (900 mg PO BID) 01/20/18 lisinopril (20 mg PO QDAY) Unknown meloxicam (15 mg PO DAILY) 01/20/18 venlafaxine (150 mg PO DAILY) 01/20/18 Special Indicators No Data to Display Vital Signs Today 11:22 BP 103/73 Pulse 67 Resp 16 Temp 98 F O2 Sat 95 Lab Results Last 24 Hrs Most Recent Hematology WBC 5.9 X10^3/uL (4.5-11.0) 01/20/18 23:59 RBC 4.32 X10^6/uL (4.5-5.9) L 01/20/18 23:59 Hgb 13.7 g/dL (13.5-17.5) 01/20/18 23:59 Hct 39.4 % (41-53) L 01/20/18 23:59 MCV 91.2 fL (80-100) 01/20/18 23:59 MCH 31.7 PG (26-34) 01/20/18 23:59 MCHC 34.7 % (30-36) 01/20/18 23:59 RDW 12.7 % (11.6-14.8) 01/20/18 23:59 Plt Count 347 X10^3/uL (150-400) 01/20/18 23:59 Neut % (Auto) 76.8 % (50-75) H 01/20/18 23:59 Lymph % (Auto) 14.5 % (25-40) L 01/20/18 23:59 [place] % (Auto) 5.0 % (3-14) 01/20/18 23:59 Eos % (Auto) 2.9 % (2-4) 01/20/18 23:59 Baso % (Auto) 0.8 % (0-2) 01/20/18 23:59 Neut # (Auto) 4500 /uL (7044-4557) 01/20/18 23:59 Chemistry Hemoglobin A1c 5.8 % (4.0-6.0) comment 01/20/18 23:59 Problems External Data Available ONSET CAD (coronary artery disease) Hyperlipidemia HTN (hypertension) Peripheral neuropathy Constipation Diagnostics Reports Dru Mcpherson Ashley 67 M 1950 Allergy/Adv: No Known Drug Allergies CLOSE Brain MRI (Signed) Shiv Jiménez - 01/20/[address] (Signed) Shyanne Jones - 01/20/18 View Report History [address] [address] Magnetic Resonance Report Signed Patient: Dru Mcpherson MR#: [id number] : 1950 Acct:[id number] Age/Sex: 67 / M Date of Service: 01/20/18 Loc: AC 214-1 Accession Number: [id number] Procedure: MR stroke Ordering Provider: Uday Bates M.D. PROCEDURE: MR STROKE Pre- and post-contrast brain MRI, non-contrast brain MR angiogram, pre- and postcontrast neck MR angiogram INDICATIONS: CVA, LLE weakness TECHNIQUE: Brain: Noncontrast axial T1 spin echo, axial T2 fast spin echo, sagittal and axial FLAIR, coronal T2 fast spin echo, axial gradient echo, axial diffusion and ADC through the brain. After the administration of contrast, axial 3D VIBE of the cranial vasculature and brain. Brain MRA: Non-contrast 3-D time of flight MR angiogram, with multiple mebgaze-irbcrerrf-ejvzcovlfo (MIP) reformats performed. Neck MRA: Axial and sagittal TruFISP through the neck. Coronal dynamic MR angiogram during administration of contrast in the arterial and venous phases, with 3- dimenstional uyxzonm-gqdhrsmii-bpijmesczd (MIP) reformats constructed from subtraction images. COMPARISON: [facility], CT from 01/20/2018 FINDINGS: Image quality: Excellent. BRAIN: CSF spaces: Ventricles are normal in size and shape. Basal cisterns are patent. No extra-axial fluid collections. Brain: No intracranial bleeds or mass effects. Moise-white matter interface is normal. Diffusion weighted images show no acute ischemic insults. Brainstem appears normal. Normal intravascular flow voids are present. No abnormal intracranial enhancement. There is increased T2 signal in the subcortical and periventricular white matter. Skull and face: Calvarial marrow signal is normal. Orbits appear normal. Sinuses: Sinuses and mastoids are clear. BRAIN MR ANGIOGRAM: Anterior circulation: Intracranial internal carotid arteries are normal in size and enhancement. The flow within the paired anterior cerebral arteries is normal and symmetric. The flow within the middle cerebral arteries is normal and symmetric. The anterior communicating artery is seen. No stenoses, occlusions, or aneurysms. Posterior circulation: The visualized portions of the vertebral arteries demonstrate normal caliber, and join to form a normal appearing basilar artery. The flow within the posterior cerebral arteries is normal and symmetric other than origin of the right posterior cerebral artery which is a benign variant. No stenoses, occlusions, or aneurysms. NECK MR ANGIOGRAM: Carotids: Great vessels demonstrate a conventional anatomy as they arise from the aortic arch. The origins of the common carotid arteries appear patent. The calibers and courses of both common carotid arteries are normal. The bifurcation regions demonstrate hemodynamically insignificant atheromatous plaque bilaterally. The internal carotid arteries demonstrate normal course and caliber. Posterior circulation: The origins of the right vertebral artery appears patent. The left vertebral artery origin is obscured by artifact and cannot be evaluated. More superior portions of both vertebral arteries demonstrate normal course and caliber, and join to form a normal appearing basilar artery. Miscellaneous: Subclavian arteries appear patent. Pre-contrast images through the neck show no soft tissue abnormalities. IMPRESSION: BRAIN MRI: No MRI evidence of acute intracranial pathology. Increased T2 signal in the subcortical and periventricular white matter most with chronic benign ischemic change given the patient's age. BRAIN MR ANGIOGRAM: No MRA evidence of acute intracranial arterial pathology. NECK MR ANGIOGRAM: No MRA evidence of acute arterial pathology in the neck. Dictated by: Merlin Jiménez M.D. on 01/20/2018 at 14:34 Approved by: Merlin Jiménez M.D. on 01/20/2018 at 14:43 Discharge Plan Discharge Plan Patient Disposition: Home, Self-Care Discharge Data Primary Care Provider: Rupali Anthony Attending Provider: Uday Bates Admit Date/Time: 01/20/18 13:02 Quality VTE Deep Vein Thrombosis/Pulmonary Embolism Present on Admission: No
--- NOTE | 2018-01-21 12:33 | PT.IIE ---
Physical Therapy Inpatient Evaluation/Re-Eval M1 PT/OT-IP Prior Functional Status Start: 01/21/18 12:16 Freq: NEEDED Status: Active Protocol: Document 01/21/18 12:16 AB (Rec: 01/21/18 12:32 AB [id number]) Medical Review Prior Functional Status Medical History Reviewed Yes Mobility and Gait Pt stated that he is independent with all mobilities and ambulation without AD Social History Household Members none Living Arrangements House Number of Floors (Floors) Two Floors Number of Stairs To Enter/Railing? has 2 steps with 2 grab bar handles by the door frame Has 13 steps with L rail ascending to get to 2nd floor but pt is thinking on just staying on first level/main level of the house. Home Environment High Toilet Walk in Shower Tub/Shower Employment Status Retired Additional Social History Comment pt has an adjustable bed at home. 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 Physical Therapy Visit Comments Patient Comments pt agreeable to do therapy Therapy Pain Assessment Pain Present Pain Present Denied Pain M4 PT-IP Mobility and Gait Start: 01/21/18 12:16 Freq: NEEDED Status: Active Protocol: Document 01/21/18 12:16 AB (Rec: 01/21/18 12:32 AB [id number]) PT-Bed Mobility Assessment Supine to Sit Supine to Sit Standby Assistance Scooting Scooting to Edge of Bed Standby Assistance PT-Transfer Assessment Sit to and From Stand Sit to and from Stand Standby Assistance Gait Assessment Gait Gait Assistance Required: Standby Assistance Contact Guard Assist Distance (Feet) (feet) 225 Assistive Devices Assistive Device None Gait Belt Orthotic/Prosthetic Devices or Brace: No Gait Deviations General Gait Pattern Antalgic Factors Limiting Gait Function Factors Limiting Gait Function Decreased Sensation Poor Balance Comments Gait Comments pt with occasional LOB but with recovery. stated that he has balance and strength issues on LLE due to his neuropathy. Stair Climbing Assessment Evaluation Level of Assist On Stairs Standby Assistance Contact Guard Assistance Devices Stair Climbing Assistive Devices None Left Railing Technique/Endurance Stair Climbing Direction Ascend and Descend Stair Climbing Technique Step Over Step Number of Steps Climbed 3 Query Text: Stair Climbing Set # Repetitions (reps) 4 Comments Stair Climbing Comments pt completed up/down steps without rails CGA and cues. completed up/down steps using L rail ascending SBA. PT-Balance Assessment Sitting Balance and Reactions Static Sitting Balance Ability Good Dynamic Sitting Balance Ability Good Standing Balance and Reactions Static Standing Balance Ability Good Dynamic Standing Balance Ability Fair Device Used FWW M5 PT-IP Objective Assessments Start: 01/21/18 12:16 Freq: NEEDED Status: Active Protocol: Document 01/21/18 12:16 AB (Rec: 01/21/18 12:32 [id number]) Orientation Orientation/Cognition Level of Alertness Alert Orientation Name Age Birthday Month Date Year Day of Week Place Situation Safety Awareness Understands Safety Issues Memory Description No Deficits Noted Gross Range of Motion Lower Extremity ROM Assessment Within Functional Limits Strength Lower Extremity Strength Assessment Left Impaired Hip 4-/5 Knee 4-/5 Ankle 4-/5 Sensation Assessment Sensation Gross Sensation Left LE Impaired Sensation Description Numbness Comments Sensation Comments numbness from mid calf to foot M6 PT-IP Treatment Start: 01/21/18 12:16 Freq: NEEDED Status: Active Protocol: Document 01/21/18 12:16 AB (Rec: 01/21/18 12:32 AB [id number]) Physical Therapy Treatment Education Post-Op Education Safety M7 PT-IP Assessment and Plan Start: 01/21/18 12:16 Freq: NEEDED Status: Active Protocol: Document 01/21/18 12:16 AB (Rec: 01/21/18 12:32 AB [id number]) PT Summary Assessment and Plan Potential Rehabilitation Potential Good Status of Condition at Evaluation Stable Summary Impairments Strength Balance Sensation Bed Mobility Transfers Gait Activity Tolerance Assessment Summary pt requiring SBA to CGA with mobility. pt may go home when medically stable Goals Bed Mobility Goal Independent Transfer Goal Independent Gait Goal Independent Gait Distance 300 Days to Meet Goals 2 Frequency of Treatment Frequency Of Treatment Once a Day Treatment Plan Physical Therapy Treatment Plan Bed Mobility Training Transfer Training Gait Training Therapeutic Exercise Balance Retraining Discharge Planning Neuromuscular Re-ed Recommendations To Nursing Amount of Assist Needed Standby Assistance Discharge Recommendations PT Discharge Recommendations Home Visit Care Team Role Provider Type Rupali Anthony PA-C Primary Care Provider Advanced Practioner Clinician Ascencion Silva DO Emergency Provider Physician Uday Bates MD Admit Provider Physician Attending Provider Medical History (Last Updated 01/20/18 @ 13:55 by Uday Bates MD) CAD (coronary artery disease) (Acute) Hyperlipidemia (Chronic) HTN (hypertension) (Chronic) Peripheral neuropathy (Chronic) COPD (chronic obstructive pulmonary disease) (Acute) Depression (Acute) Insomnia (Acute) Spinal stenosis (Acute) Surgical History (Last Updated 01/20/18 @ 13:58 by Uday Bates MD) Total knee replacement status (Acute)
--- NOTE | 2018-01-21 12:53 | CM.DANOTE ---
DCP Assessment Patient is a 67 year old male who was admitted OBS STATUS on 01/20/18 for Stroke. Pt has [facility] for insurance and his PCP is JILL Sal. EMR was reviewed. Per MD, pt medically stable to d/c home today with no identified barriers to discharge. Per RN, pt has been Independent in his room and no needs identified. Per PT, pt safe for d/c home. SW met bedside with pt and supportive friends and explained role and pt confirmed that he lives at home alone, from his , in [place] and he is Independent with ADL's at baseline. Pt drives and works and does not use equipment to ambulate. Pt states that he has living will from 2008 that he needs to update and denies DPOA. SW discussed the purpose of DPOA and provided DPOA brochure and pwk and pt appreciative. Pt denies any hx of HH or SNF. Pt preference is to d/c home today via friends POV and does not anticipate any SW needs. Plan: Patient to d/c home today via friend POV and no SW needs at this time. Dara Ibrahim MSW
== END 2018-01-21 13:20 | disposition home or self-care (01) ==
LOC: ED 11:55 → AC 13:04
PROVIDERS: Admitting Provider Internal Medicine; Emergency Provider Emergency Medicine; PCP Physician Assistant; Visit Provider Internal Medicine
DX: I63.9 Cerebral infarction, unspecified (principal)
CPT/HCPCS: 36591; 70450; 70553; 80048; 82962; 83036; 85025; 85610; 85730; 93005; 97161; 99282; G0378

== ENCOUNTER 2018-03-23 13:45 | Outpatient (RCR) | payer OTHER, SELFPAY ==
[2018-01-21 22:07] VITALS: BMI 30.4
--- NOTE | 2018-03-08 12:45 | PT.OPPOC ---
Current Diagnoses Muscle weakness (generalized) (03/08/18) Unsteadiness on feet (03/08/18) Provider Visit Care Team Role Provider Type Rupali Anthony PA-C Attending Provider Advanced Practioner Clinician Primary Care Provider Specialty: Internal Medicine Address: [address] [place] [address], [id number] Email: Plan Of Care PT-OP-T Assessment and Plan Start: 03/11/18 15:37 Freq: Status: Active Protocol: Document 03/08/18 12:45 RCC (Rec: 03/11/18 16:16 RCC [id number]) Physical Therapy Assessment Rehab Potential Rehabilitation Potential Excellent Evaluation Complexity Number of Personal Factors/Comorbidities 1-2 Number of Body Systems Impaired 3 Clinical Presentation at Evaluation Evolving Impairments Impairments Activity Tolerance Balance Strength Other Impairments Recreational activities. Goals Five Impairment Dynamic Gait Index [employer]ment Goal (LTG) 24/ on DGI to improve dynamic gait stability/safety with gait. LTG Duration 8 weeks Four Impairment SL balance Short Term Goal (STG) 8 sec bilaterally to decrease fall risk STG Duration 4 weeks [employer] Goal (LTG) 10 sec bilaterally to decrease fall risk LTG Duration 8 weeks Three Impairment Functional reach Penitentiary Goal (LTG) 10 inches or greater with functional reach prior to d/c to decrease fall risk. LTG Duration 8 weeks Two Impairment LE weakness Short Term Goal (STG) hip abduction, ER, ankle DF 4+ /5 with MMT to improve functional strength with mobility. STG Duration 4 weeks Penitentiary Goal (LTG) hip abduction, ER, ankle DF 5/ 5 with MMT to improve functional strength with mobility. LTG Duration 8 weeks One Impairment Recreational activities Short Term Goal (STG) Pt will be able to walk outdoors for 15 min without fatigue, 5 days per week STG Duration 4 weeks [employer] Goal (LTG) Pt will be able to walk outdoors for 30 min without fatigue, 5 days per week. LTG Duration 8 weeks Assessment Summary Assessment Pt presents with c/o fatigue with normal daily activities, and is unable to participate in his normal walking program he was performing outdoors prior to onset of weakness and vertigo in January of 2018. Pt also with LLE weakness, impaired balance, and risk for falls with impaired functional reach testing. Overall, pt would greatly benefit from outpatient physical therapy to improve his activity tolerance and balance, and increase strength in the LLE to regain functional independence and get back to his prior level of function. Physical Therapy Plan Frequency and Duration Frequency of Treatment 1x/Week Duration of Treatment 8 weeks Plan of Care Start Date 03/08/18 Plan of Care End Date 05/03/18 Therapeutic Interventions Therapeutic Interventions Aquatic Therapy Balance Training Gait Training Home Exercise Program Manual Therapy Neuromuscular Re-education Patient/Caregiver Education Self-Care/Home Management Soft Tissue Mobilization Taping Therapeutic Activities Therapeutic Exercises Modalities Cold Pack/Ice Massage Hot Packs Next Visit Focus/Plan Next Note Type Treatment Note Next Visit Plan standing balance training, elliptical as tolerated, resisted walking, clamshells. Plan of Care Dates Plan of Care Start Date 03/08/18 Plan of Care End Date 05/03/18 Please Sign and Return: I have reviewed this Plan of Care and certify that the skilled therapy services above are required to meet the patient?s needs. Physician Signature Date Printed Name and Credentials Clinical Instructor Signature Printed Name and Credentials
--- NOTE | 2018-03-08 12:45 | PT.OIE ---
Current Diagnoses Muscle weakness (generalized) (03/08/18) Unsteadiness on feet (03/08/18) Past Medical History (Last Reviewed 01/22/18 @ 04:56 by Siva De La Rosa DO) CAD (coronary artery disease) (Acute) Hyperlipidemia (Chronic) HTN (hypertension) (Chronic) Peripheral neuropathy (Chronic) COPD (chronic obstructive pulmonary disease) (Acute) Depression (Acute) Insomnia (Acute) Spinal stenosis (Acute) Past Surgical History (Last Reviewed 01/22/18 @ 04:56 by Siva De La Rosa DO) Total knee replacement status (Acute) Provider Visit Care Team Role Provider Type Rupali Anthony PA-C Attending Provider Advanced Practioner Clinician Primary Care Provider Specialty: Internal Medicine Address: [address] [place] [address], [facility] Email: Physical Therapy Initial Evaluation PT-OP-A Visit Information Start: 03/11/18 15:37 Freq: Status: Active Protocol: Document 03/08/18 12:45 [facility] (Rec: 03/11/18 15:55 [facility] [email or web address]) Out-Patient Physical Therapy Visit Information Visit Information Visit Type Initial Evaluation Visit Start Time 12:00 Visit Stop Time 12:45 Total Visit Minutes 45 Visit Number 1 Number of JANITORIAL SUPERVISOR Visits 0 Evaluation Information Evaluation Date 03/08/18 PT-OP-B Current Condition Start: 03/11/18 15:37 Freq: Status: Active Protocol: Document 03/08/18 12:45 RCC (Rec: 03/11/18 15:55 RCC [email or web address]) Current Condition History of Current Condition Onset Date 01/21/2018 Current Complaints weakness, fatigue, unsteadiness History of Current Condition Pt is a 67 y/o male presenting to physical therapy with a c/ o weakness, fatigue with activity. Pt with recent hospitalization @ for possible CVA, but all testing was negative and was discharged home. Later that day, pt thought he had a gas leak in his home, he called 911 and firefighters responded . They did not find a gas leak , but firefighters noted that pt was very unsteady, not safe to be at home alone. He was brought back to with c/o moderate dizziness and unsteadiness on his feet. Imaging then found 50% bilateral carotid artery stenosis, but no CVA. Murray maneuver was performed at for R sided posterior canal BPPV, and symptoms improved somewhat. The Murray maneuver was performed again @ [facility] by a PT, and pt reported his dizziness finally dissipated. He discharged back home from [facility], and notes that now he gets fatigued more rapidly than he did prior to this episode and feels weakness progress as fatigue increases. Pt would like to improve his strength, balance, and activity tolerance to get back to a walking program and using his elliptical at home safely. Prior Treatments and Tests 50% carotid artery stenosis bilaterally. Treatment Goals Patient/Caregiver Goals Increase strength, improve activity tolerance and balance . Prior Functional Status Baseline Function- ADL's Independent Baseline Function- Mobility Independent Baseline Function- Gait indep. community ambulation without device. Baseline Function- Recreation/Hobbies Walking outdoors indep. without device Current Functional Impairments (Reported) Functional Limitations- Mobility/Gait household gait and some community ambulation (to/from parking lot for appointments). Functional Limitations- Recreation/ not participating in walking Hobbies program due to fatigue and weakness. PT-OP-C Subjective Start: 03/11/18 15:37 Freq: Status: Active Protocol: Document 03/08/18 12:45 RCC (Rec: 03/11/18 15:55 [facility] [email or web address]) OP-PT Subjective Patient Comments Patient Comments Pt notes he would love to get back to walking outdoors, walk around [place]. PT-OP-D Balance Start: 03/11/18 15:37 Freq: Status: Active Protocol: Document 03/08/18 12:45 RCC (Rec: 03/11/18 16:05 [facility] [email or web address]) Balance Tests Functional Reach Functional Reach Test 8 Functional Reach Impairment Rating 20 to <40% Impaired (Score 7-8 ) Single Limb Standing Single Limb- Right 6 sec Single Limb- Left 5 sec Tandem Tandem Standing 10 sec bilaterally. PT-OP-E Functional Tests Start: 03/11/18 15:37 Freq: Status: Active Protocol: Document 03/08/18 12:45 RCC (Rec: 03/11/18 16:05 [facility] [email or web address]) Functional Tests 6 Minute Walk Test Distance 1306 ft Device Used none Comments fatigued; O2 saturation 97%, HR 74 bpm Dynamic Gait Index (DGI) Score 22 DGI Impairment Rating 1 to <20% Impaired (Score 20- 23) PT-OP-H Neuro Start: 03/11/18 15:37 Freq: Status: Active Protocol: Document 03/08/18 12:45 RCC (Rec: 03/11/18 16:05 [facility] [email or web address]) Coordination Evaluation Lower Extremity Tests Right Alternate Heel to Knee; Heel to Toe Test Normal Performance Foot Tapping Test Normal Performance Left Alternate Heel to Knee; Heel to Toe Test Normal Performance Foot Tapping Test Normal Performance Deep Tendon Reflex & Clonus Assessment Deep Tendon Reflex Bilateral Achilles Deep Tendon Reflex 2+ Normal Bilateral Patellar Deep Tendon Reflex 2+ Normal Ankle Clonus Bilateral Clonus Assessment Absent PT-OP-L Special Tests Start: 03/11/18 15:37 Freq: Status: Active Protocol: Document 03/08/18 12:45 RCC (Rec: 03/11/18 16:05 [facility] [email or web address]) Special Tests Lumbar Spine Special Tests Straight Leg Raise Test Results negative PT-OP-M Strength Start: 03/11/18 15:37 Freq: Status: Active Protocol: Document 03/08/18 12:45 RCC (Rec: 03/11/18 16:05 [facility] [email or web address]) Hip Strength Hip Manual Muscle Testing Right Flexion (L2) 5 Normal Abduction 5 Normal Adduction 5 Normal External Rotation 5 Normal Internal Rotation 5 Normal Left Flexion (L2) 5 Normal Abduction 4 Good Adduction 5 Normal External Rotation 4 Good Internal Rotation 5 Normal Knee Strength Knee Manual Muscle Testing Right Flexion (S2) 5 Normal Extension (L3) 5 Normal Left Flexion (S2) 5 Normal Extension (L3) 5 Normal Ankle/Foot Strength Ankle and Foot Manual Muscle Testing Right Dorsiflexion (L4) 5 Normal Left Dorsiflexion (L4) 4 Good Toe Strength Toe Manual Muscle Testing Right Great Toe Flexion 5 Normal Left Great Toe Extension 3+ Fair+ PT-OP-Q Treatments Start: 03/11/18 15:37 Freq: Status: Active Protocol: Document 03/08/18 12:45 [facility] (Rec: 03/11/18 16:16 [facility] [email or web address]) Cardio Equipment Elliptical Duration (Minutes) 1 Resistance 1 Other mild fatigue Therapeutic Exercises Other Exercises 1 Other Exercise Name Chair squats Side bilateral Reps/Minutes 1x8 PT-OP-T Assessment and Plan Start: 03/11/18 15:37 Freq: Status: Active Protocol: Document 03/08/18 12:45 RCC (Rec: 06/30/18 16:16 [facility] [email or web address]) Physical Therapy Assessment Rehab Potential Rehabilitation Potential Excellent Evaluation Complexity Number of Personal Factors/Comorbidities 1-2 Number of Body Systems Impaired 3 Clinical Presentation at Evaluation Evolving Impairments Impairments Activity Tolerance Balance Strength Other Impairments Recreational activities. Goals Five Impairment Dynamic Gait Index Dental Laboratory Worker Goal (LTG) 24/24 on DGI to improve dynamic gait stability/safety with gait. LTG Duration 8 weeks Four Impairment SL balance Short Term Goal (STG) 8 sec bilaterally to decrease fall risk STG Duration 4 weeks Half-Way Goal (LTG) 10 sec bilaterally to decrease fall risk LTG Duration 8 weeks Three Impairment Functional reach Dental Laboratory Worker Goal (LTG) 10 inches or greater with functional reach prior to d/c to decrease fall risk. LTG Duration 8 weeks Two Impairment LE weakness Short Term Goal (STG) hip abduction, ER, ankle DF 4+ /5 with MMT to improve functional strength with mobility. STG Duration 4 weeks Half-Way Goal (LTG) hip abduction, ER, ankle DF 5/ 5 with MMT to improve functional strength with mobility. LTG Duration 8 weeks One Impairment Recreational activities Short Term Goal (STG) Pt will be able to walk outdoors for 15 min without fatigue, 5 days per week STG Duration 4 weeks Half-Way Goal (LTG) Pt will be able to walk outdoors for 30 min without fatigue, 5 days per week. LTG Duration 8 weeks Assessment Summary Assessment Pt presents with c/o fatigue with normal daily activities, and is unable to participate in his normal walking program he was performing outdoors prior to onset of weakness and vertigo in January of 2018. Pt also with LLE weakness, impaired balance, and risk for falls with impaired functional reach testing. Overall, pt would greatly benefit from outpatient physical therapy to improve his activity tolerance and balance, and increase strength in the LLE to regain functional independence and get back to his prior level of function. Physical Therapy Plan Frequency and Duration Frequency of Treatment 1x/Week Duration of Treatment 8 weeks Plan of Care Start Date 03/08/18 Plan of Care End Date 05/03/18 Therapeutic Interventions Therapeutic Interventions Aquatic Therapy Balance Training Gait Training Home Exercise Program Manual Therapy Neuromuscular Re-education Patient/Caregiver Education Self-Care/Home Management Soft Tissue Mobilization Taping Therapeutic Activities Therapeutic Exercises Modalities Cold Pack/Ice Massage Hot Packs Next Visit Focus/Plan Next Note Type Treatment Note Next Visit Plan standing balance training, elliptical as tolerated, resisted walking, clamshells.
--- NOTE | 2018-03-14 15:55 | PT.OTN ---
Current Diagnoses Unsteadiness on feet (03/14/18) Physical Therapy Treatment Note PT-OP-A Visit Information Start: 03/11/18 15:37 Freq: Status: Active Protocol: Document 03/14/18 13:02 [facility] (Rec: 03/14/18 13:45 [facility] [id number]) Out-Patient Physical Therapy Visit Information Visit Information Visit Type Treatment Note Visit Start Time 13:02 Visit Stop Time 13:47 Total Visit Minutes 45 Visit Number 2 Number of ENTERPRISE PROJECT MANAGER Visits 0 Evaluation Information Evaluation Date 03/08/18 PT-OP-B Current Condition Start: 03/11/18 15:37 Freq: Status: Active Protocol: Document 03/08/18 12:45 RCC (Rec: 03/11/18 15:55 RCC [email or web address]) Current Condition History of Current Condition Onset Date 01/21/2018 Current Complaints weakness, fatigue, unsteadiness History of Current Condition Pt is a 67 y/o male presenting to physical therapy with a c/ o weakness, fatigue with activity. Pt with recent hospitalization @ for possible CVA, but all testing was negative and was discharged home. Later that day, pt thought he had a gas leak in his home, he called 911 and firefighters responded . They did not find a gas leak , but firefighters noted that pt was very unsteady, not safe to be at home alone. He was brought back to with c/o moderate dizziness and unsteadiness on his feet. Imaging then found 50% bilateral carotid artery stenosis, but no CVA. Murray maneuver was performed at for R sided posterior canal BPPV, and symptoms improved somewhat. The Murray maneuver was performed again @ [facility] by a PT, and pt reported his dizziness finally dissipated. He discharged back home from [facility], and notes that now he gets fatigued more rapidly than he did prior to this episode and feels weakness progress as fatigue increases. Pt would like to improve his strength, balance, and activity tolerance to get back to a walking program and using his elliptical at home safely. Prior Treatments and Tests 50% carotid artery stenosis bilaterally. Treatment Goals Patient/Caregiver Goals Increase strength, improve activity tolerance and balance . Prior Functional Status Baseline Function- ADL's Independent Baseline Function- Mobility Independent Baseline Function- Gait indep. community ambulation without device. Baseline Function- Recreation/Hobbies Walking outdoors indep. without device Current Functional Impairments (Reported) Functional Limitations- Mobility/Gait household gait and some community ambulation (to/from parking lot for appointments). Functional Limitations- Recreation/ not participating in walking Hobbies program due to fatigue and weakness. PT-OP-C Subjective Start: 03/11/18 15:37 Freq: Status: Active Protocol: Document 03/08/18 12:45 RCC (Rec: 03/11/18 15:55 [facility] [email or web address]) OP-PT Subjective Patient Comments Patient Comments Pt notes he would love to get back to walking outdoors, walk around [place]. PT-OP-D Balance Start: 03/11/18 15:37 Freq: Status: Active Protocol: Document 03/08/18 12:45 [facility] (Rec: 03/11/18 16:05 [facility] [email or web address]) Balance Tests Functional Reach Functional Reach Test 8 Functional Reach Impairment Rating 20 to <40% Impaired (Score 7-8 ) Single Limb Standing Single Limb- Right 6 sec Single Limb- Left 5 sec Tandem Tandem Standing 10 sec bilaterally. PT-OP-E Functional Tests Start: 03/11/18 15:37 Freq: Status: Active Protocol: Document 03/08/18 12:45 [facility] (Rec: 03/11/18 16:05 [facility] [email or web address]) Functional Tests 6 Minute Walk Test Distance 1306 ft Device Used none Comments fatigued; O2 saturation 97%, HR 74 bpm Dynamic Gait Index (DGI) Score 22 DGI Impairment Rating 1 to <20% Impaired (Score 20- 23) PT-OP-H Neuro Start: 03/11/18 15:37 Freq: Status: Active Protocol: Document 03/08/18 12:45 RCC (Rec: 03/11/18 16:05 [facility] [email or web address]) Coordination Evaluation Lower Extremity Tests Right Alternate Heel to Knee; Heel to Toe Test Normal Performance Foot Tapping Test Normal Performance Left Alternate Heel to Knee; Heel to Toe Test Normal Performance Foot Tapping Test Normal Performance Deep Tendon Reflex & Clonus Assessment Deep Tendon Reflex Bilateral Achilles Deep Tendon Reflex 2+ Normal Bilateral Patellar Deep Tendon Reflex 2+ Normal Ankle Clonus Bilateral Clonus Assessment Absent PT-OP-L Special Tests Start: 03/11/18 15:37 Freq: Status: Active Protocol: Document 03/08/18 12:45 [facility] (Rec: 03/11/18 16:05 [facility] [email or web address]) Special Tests Lumbar Spine Special Tests Straight Leg Raise Test Results negative PT-OP-M Strength Start: 03/11/18 15:37 Freq: Status: Active Protocol: Document 03/08/18 12:45 RCC (Rec: 03/11/18 16:05 [facility] [email or web address]) Hip Strength Hip Manual Muscle Testing Right Flexion (L2) 5 Normal Abduction 5 Normal Adduction 5 Normal External Rotation 5 Normal Internal Rotation 5 Normal Left Flexion (L2) 5 Normal Abduction 4 Good Adduction 5 Normal External Rotation 4 Good Internal Rotation 5 Normal Knee Strength Knee Manual Muscle Testing Right Flexion (S2) 5 Normal Extension (L3) 5 Normal Left Flexion (S2) 5 Normal Extension (L3) 5 Normal Ankle/Foot Strength Ankle and Foot Manual Muscle Testing Right Dorsiflexion (L4) 5 Normal Left Dorsiflexion (L4) 4 Good Toe Strength Toe Manual Muscle Testing Right Great Toe Flexion 5 Normal Left Great Toe Extension 3+ Fair+ PT-OP-Q Treatments Start: 03/11/18 15:37 Freq: Status: Active Protocol: Document 03/14/18 13:02 [facility] (Rec: 03/14/18 13:45 [facility] [id number]) Cardio Equipment Elliptical Duration (Minutes) 4 Resistance 1 Other 2' x 2 Gym Equipment Shuttle Balance 1 Details chains yellow Comments Standing bal: EO, EC mini-squats Sport Cord 1 Exercise Details fwd, bck, side Cord/Resistance green Reps/Duration 5x ea Comments SBA to CGA and verbal cues Therapeutic Exercises Supine Exercises 1 Supine Exercise Name SKTC Side bilateral Reps/Minutes 2 Sidelying Exercises 1 Sidelying Exercise Name clamshell Reps/Minutes 10 Comments fatigue Standing Exercises 1 Standing Exercise Name HC stretch on BENITA Comments passive and dynamic Neuro Re-Education Treatment Balance Activities 2 Details tiltboard balance and weight- shift Surface tiltboard Comments occasional UE support 1 Details SLS, tandem stand Surface floor Comments occasional UE support PT-OP-T Assessment and Plan Start: 03/11/18 15:37 Freq: Status: Active Protocol: Document 03/14/18 13:02 [facility] (Rec: 03/14/18 15:55 [facility] [id number]) Physical Therapy Assessment Impairments Impairments Activity Tolerance Balance Strength Other Impairments Recreational activities. Goals Five Impairment Dynamic Gait Index Usp Goal (LTG) 24/ on DGI to improve dynamic gait stability/safety with gait. LTG Duration 8 weeks Four Impairment SL balance Short Term Goal (STG) 8 sec bilaterally to decrease fall risk STG Duration 4 weeks Usp Goal (LTG) 10 sec bilaterally to decrease fall risk LTG Duration 8 weeks Three Impairment Functional reach Police Justice Goal (LTG) 10 inches or greater with functional reach prior to d/c to decrease fall risk. LTG Duration 8 weeks Two Impairment LE weakness Short Term Goal (STG) hip abduction, ER, ankle DF 4+ /5 with MMT to improve functional strength with mobility. STG Duration 4 weeks Usp Goal (LTG) hip abduction, ER, ankle DF 5/ 5 with MMT to improve functional strength with mobility. LTG Duration 8 weeks One Impairment Recreational activities Short Term Goal (STG) Pt will be able to walk outdoors for 15 min without fatigue, 5 days per week STG Duration 4 weeks Police Justice Goal (LTG) Pt will be able to walk outdoors for 30 min without fatigue, 5 days per week. LTG Duration 8 weeks Physical Therapy Plan Frequency and Duration Frequency of Treatment 1x/Week Duration of Treatment 8 weeks Plan of Care Start Date 03/08/18 Plan of Care End Date 05/03/18 Therapeutic Interventions Therapeutic Interventions Aquatic Therapy Balance Training Gait Training Home Exercise Program Manual Therapy Neuromuscular Re-education Patient/Caregiver Education Self-Care/Home Management Soft Tissue Mobilization Taping Therapeutic Activities Therapeutic Exercises Modalities Cold Pack/Ice Massage Hot Packs Next Visit Focus/Plan Next Note Type Treatment Note Next Visit Plan Progression of balance, strengthening, aerobic conditioning as tolerated.
--- NOTE | 2018-03-23 14:25 | PT.OTN ---
Current Diagnoses Unsteadiness on feet (03/23/18) Physical Therapy Treatment Note PT-OP-A Visit Information Start: 03/11/18 15:37 Freq: Status: Active Protocol: Document 03/23/18 14:25 RCC (Rec: 03/23/18 15:17 [facility] [email or web address]) Out-Patient Physical Therapy Visit Information Visit Information Visit Type Treatment Note Visit Start Time 13:45 Visit Stop Time 14:25 Total Visit Minutes 40 Visit Number 3 Number of OIL WELL SERVICE UNIT OPERATOR Visits 0 Evaluation Information Evaluation Date 03/08/18 PT-OP-B Current Condition Start: 03/11/18 15:37 Freq: Status: Active Protocol: Document 03/08/18 12:45 [facility] (Rec: 03/11/18 15:55 [facility] [email or web address]) Current Condition History of Current Condition Onset Date 01/21/2018 Current Complaints weakness, fatigue, unsteadiness History of Current Condition Pt is a 67 y/o male presenting to physical therapy with a c/ o weakness, fatigue with activity. Pt with recent hospitalization @ for possible CVA, but all testing was negative and was discharged home. Later that day, pt thought he had a gas leak in his home, he called 911 and firefighters responded . They did not find a gas leak , but firefighters noted that pt was very unsteady, not safe to be at home alone. He was brought back to with c/o moderate dizziness and unsteadiness on his feet. Imaging then found 50% bilateral carotid artery stenosis, but no CVA. Murray maneuver was performed at for R sided posterior canal BPPV, and symptoms improved somewhat. The Murray maneuver was performed again @ [facility] by a PT, and pt reported his dizziness finally dissipated. He discharged back home from [facility], and notes that now he gets fatigued more rapidly than he did prior to this episode and feels weakness progress as fatigue increases. Pt would like to improve his strength, balance, and activity tolerance to get back to a walking program and using his elliptical at home safely. Prior Treatments and Tests 50% carotid artery stenosis bilaterally. Treatment Goals Patient/Caregiver Goals Increase strength, improve activity tolerance and balance . Prior Functional Status Baseline Function- ADL's Independent Baseline Function- Mobility Independent Baseline Function- Gait indep. community ambulation without device. Baseline Function- Recreation/Hobbies Walking outdoors indep. without device Current Functional Impairments (Reported) Functional Limitations- Mobility/Gait household gait and some community ambulation (to/from parking lot for appointments). Functional Limitations- Recreation/ not participating in walking Hobbies program due to fatigue and weakness. PT-OP-C Subjective Start: 03/11/18 15:37 Freq: Status: Active Protocol: Document 03/23/18 14:25 [facility] (Rec: 03/23/18 15:17 [facility] [email or web address]) OP-PT Subjective Patient Comments Patient Comments Pt notes that he was so weak that he could not start his raisin washer yesterday. PT-OP-D Balance Start: 03/11/18 15:37 Freq: Status: Active Protocol: Document 03/08/18 12:45 [facility] (Rec: 03/11/18 16:05 [facility] [email or web address]) Balance Tests Functional Reach Functional Reach Test 8 Functional Reach Impairment Rating 20 to <40% Impaired (Score 7-8 ) Single Limb Standing Single Limb- Right 6 sec Single Limb- Left 5 sec Tandem Tandem Standing 10 sec bilaterally. PT-OP-E Functional Tests Start: 03/11/18 15:37 Freq: Status: Active Protocol: Document 03/08/18 12:45 [facility] (Rec: 03/11/18 16:05 [facility] [email or web address]) Functional Tests 6 Minute Walk Test Distance 1306 ft Device Used none Comments fatigued; O2 saturation 97%, HR 74 bpm Dynamic Gait Index (DGI) Score 22 DGI Impairment Rating 1 to <20% Impaired (Score 20- 23) PT-OP-H Neuro Start: 03/11/18 15:37 Freq: Status: Active Protocol: Document 03/08/18 12:45 [facility] (Rec: 03/11/18 16:05 [facility] [email or web address]) Coordination Evaluation Lower Extremity Tests Right Alternate Heel to Knee; Heel to Toe Test Normal Performance Foot Tapping Test Normal Performance Left Alternate Heel to Knee; Heel to Toe Test Normal Performance Foot Tapping Test Normal Performance Deep Tendon Reflex & Clonus Assessment Deep Tendon Reflex Bilateral Achilles Deep Tendon Reflex 2+ Normal Bilateral Patellar Deep Tendon Reflex 2+ Normal Ankle Clonus Bilateral Clonus Assessment Absent PT-OP-L Special Tests Start: 03/11/18 15:37 Freq: Status: Active Protocol: Document 03/08/18 12:45 [facility] (Rec: 03/11/18 16:05 [facility] [email or web address]) Special Tests Lumbar Spine Special Tests Straight Leg Raise Test Results negative PT-OP-M Strength Start: 03/11/18 15:37 Freq: Status: Active Protocol: Document 03/08/18 12:45 [facility] (Rec: 03/11/18 16:05 [facility] [email or web address]) Hip Strength Hip Manual Muscle Testing Right Flexion (L2) 5 Normal Abduction 5 Normal Adduction 5 Normal External Rotation 5 Normal Internal Rotation 5 Normal Left Flexion (L2) 5 Normal Abduction 4 Good Adduction 5 Normal External Rotation 4 Good Internal Rotation 5 Normal Knee Strength Knee Manual Muscle Testing Right Flexion (S2) 5 Normal Extension (L3) 5 Normal Left Flexion (S2) 5 Normal Extension (L3) 5 Normal Ankle/Foot Strength Ankle and Foot Manual Muscle Testing Right Dorsiflexion (L4) 5 Normal Left Dorsiflexion (L4) 4 Good Toe Strength Toe Manual Muscle Testing Right Great Toe Flexion 5 Normal Left Great Toe Extension 3+ Fair+ PT-OP-Q Treatments Start: 03/11/18 15:37 Freq: Status: Active Protocol: Document 03/23/18 14:25 [facility] (Rec: 03/23/18 15:17 [facility] [email or web address]) Cardio Equipment Treadmill Duration (Minutes) 3 Speed 2.2 Incline 0 Gym Equipment Sport Cord 1 Exercise Details fwd, back, lateral walks Cord/Resistance white/blue Reps/Duration 10 each Therapeutic Exercises Standing Exercises 4 Standing Exercise Name shoulder flexion Side bilateral Resistance none 3 Standing Exercise Name Rows Side bilateral Resistance L2 Reps/Minutes 15 reps Comments tactile cuing 2 Standing Exercise Name bicep curls Side right Resistance 5 Reps/Minutes 10 reps Neuro Re-Education Treatment Balance Activities 1 Details SLS, tandem stand Surface floor Comments occasional UE support PT-OP-T Assessment and Plan Start: 03/11/18 15:37 Freq: Status: Active Protocol: Document 03/23/18 14:25 [facility] (Rec: 03/23/18 15:17 [facility] [email or web address]) Physical Therapy Assessment Assessment Summary Assessment Pt with quadriceps and HS fatigue with resisted walking. He has a prior h/o biceps rupture (per pt), but also his generalized weakness of core, and LE are also contributors to his overall decline in function. Physical Therapy Plan Frequency and Duration Frequency of Treatment 1x/Week Duration of Treatment 8 weeks Plan of Care Start Date 03/08/18 Plan of Care End Date 08/22/18 Next Visit Focus/Plan Next Note Type Treatment Note Next Visit Plan core stability, balance, body mechanics, whole body conditioning.
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
== END 2018-08-25 13:40 ==
LOC: PHYS 13:45
PROVIDERS: PCP Physician Assistant; Visit Provider Physician Assistant
DX: R26.81 Unsteadiness on feet (principal)
CPT/HCPCS: 97110; 97112; 97162; 97530

== ENCOUNTER → 2019-01-16 11:35 | Outpatient (CLI) | payer OTHER, SELFPAY ==
[2018-01-21 22:07] VITALS: BMI 30.4
--- NOTE | 2019-01-16 | DI.CT.S_ITS ---
PROCEDURE: CT HEAD/BRAIN WO/W CON INDICATIONS: HEADACHE TECHNIQUE: 4.5 mm thick angled axial sections acquired from the foramen magnum to the vertex both before and after the administration of intravenous contrast, with coronal and sagittal reformats. For radiation dose reduction, the following was used: automated exposure control, adjustment of mA and/or kV according to patient size. COMPARISON: [facility], CT, CT HEAD/BRAIN WO CON, 01/21/2018, 17:53. FINDINGS: Image quality: Excellent. CSF spaces: Basal cisterns are patent. No extra-axial fluid collections. Ventricles are symmetric in size and shape. Brain: No midline shift. No intracranial bleeds or masses. No abnormal intracranial enhancement. There is cerebral volume loss for age. There is periventricular white matter chronic small vessel ischemic change. Small chronic left occipital infarct is stable compared to prior examination. There is intracranial internal carotid artery atherosclerosis. Skull and face: Calvarium and visualized facial bones appear intact, without suspicious lesions. Sinuses: Visualized sinuses and mastoids are clear. IMPRESSION: 1. No acute intracranial disease process. 2. No abnormal intracranial mass or suspicious postcontrast enhancement. 3. Chronic left occipital infarct stable compared to 01/21/2018. 4. Mild, diffuse cerebral volume loss. 5. Mild periventricular and subcortical white matter chronic microvascular ischemic changes. Dictated by: Shyanne Jones MD, PhD on 01/16/2019 at 13:49 Approved by: Shyanne Jones MD, PhD on 01/16/2019 at 13:54
[2019-01-16 12:08] LABS: RBC Urine None Seen (0-5/HPF)
[2019-01-16 12:23] LABS: Add Manual Diff / Slide Review NO; Basophils Absolute Auto 100 /uL (0-100); Basophils Percent Auto 0.8 % (0-2); Eosinophils Absolute Auto 100 /uL (0-450); Eosinophils Percent Auto 1.7 % (2-4); Hematocrit 42.4 % (41-53); Hemoglobin 14.4 g/dL (13.5-17.5); Lymphocytes Absolute Auto 1700 /uL (1100-4500); Mean Corpuscular HGB Conc 34.1 % (30-36); Mean Corpuscular Hemoglobin 31.2 PG (26-34); Mean Corpuscular Volume 91.5 fL (80-100); Monocytes Absolute Auto 700 /uL (0-900); Monocytes Percent Auto 7.9 % (3-14); Neutrophils Absolute Auto 5800 /uL (1500-7000); Neutrophils Percent Auto 69.6 % (50-75); Platelet Count 404 X10^3/uL (150-400); Red Blood Cell Count 4.63 X10^6/uL (4.5-5.9); Red Cell Distribution Width 13.1 % (11.6-14.8); White Blood Cell Count 8.3 X10^3/uL (4.5-11.0)
[2019-01-16 12:34] LABS: Alanine Aminotransferase 36 IU/L (21-72); Albumin 4.8 g/dL (3.5-5.0); Albumin Globulin Ratio 1.7 (1.0-2.8); Alkaline Phosphatase 98 U/L (38-126); Aspartate Aminotransferase 32 IU/L (17-59); BUN Creatinine Ratio 13.6 (6-22); Blood Urea Nitrogen 15 mg/dL (9-20); Calcium 9.5 mg/dL (8.4-10.2); Carbon Dioxide 27 mmol/L (22-32); Chloride 98 mmol/L (98-107); Estimated Glomerular Filt Rate > 60.0 mL/min (>60); Globulin 2.8 g/dL (1.7-4.1); Glucose 100 mg/dL (80-110); HEMOLYSIS < 15 (0-50); Potassium 5.3 mmol/L (3.4-5.1); Sodium 135 mmol/L (137-145); Total Protein 7.6 g/dL (6.3-8.2)
[2019-01-16 12:38] LABS: Erythrocyte Sedimentation Rate 9 MM/HR (0-15)
[2019-01-16 12:46] LABS: Appearance Urine UA CLEAR; Bilirubin Urine UA NEGATIVE (NEGATIVE); Color Urine UA YELLOW; Glucose Urine UA NEGATIVE (Negative); Ketones Urine UA NEGATIVE (NEGATIVE); Leukocyte Esterase Urine UA TRACE (NEGATIVE); Nitrite Urine UA NEGATIVE (Negative); Occult Blood Urine UA NEGATIVE (Negative); Protein Urine UA NEGATIVE (Negative); Specific Gravity Urine UA 1.015 (1.000-1.035); Urobilinogen Urine UA 0.2 E.U./dL (0.2)
[2019-01-16 12:56] LABS: Bacteria Urine Few (2-10); Squamous Epithelial Cell Urine 0-1 /HPF (0-5/HPF); Uric Acid Crystals Urine Occasional; WBC Urine 1-5/HPF (0-5/HPF)
[2019-01-16 12:57] LABS: Culture Indicated Urine Cult Not Indicated
== END ==
PROVIDERS: PCP Physician Assistant; Visit Provider Internal Medicine
DX: R51 Headache (principal); I65.29 Occlusion and stenosis of unspecified carotid artery; R41.82 Altered mental status, unspecified; R10.33 Periumbilical pain
CPT/HCPCS: 36415; 70470; 80053; 81001; 85025; 85651; Q9967

== ENCOUNTER 2019-01-18 09:40 | Emergency (ER) | payer OTHER, SELFPAY ==
[2018-01-21 22:07] VITALS: BMI 30.4
[2019-01-18] VITALS (10 sets, daily range): BP systolic 120–160; BP diastolic 74–92; PULSE 65–85; RESP 14–19; TEMP 36.7; O2SAT 94–98; BMI 29.2
--- NOTE | 2019-01-18 09:46 | ED.NEUROSD ---
HPI - Neuro Symptoms/Deficit General Chief Complaint: Neuro Symptoms/Deficit Stated Complaint: lightheadedness/breathing isn't normal Time Seen by Provider: 01/18/19 09:40 Source: patient and family Mode of arrival: ambulatory Limitations: no limitations History of Present Illness HPI Narrative: 68-year-old male nonsmoker with history hypertension and hyperlipidemia presents with chief complaint diaphoresis and lightheadedness while gardening this morning. He does have a history of coronary artery disease and was stented many years ago. He denies any chest pain or shortness of breath. He denies any change in his ability to tolerate exercise. He states that he was in the garden felt very dizzy also, furthermore he complains of difficulty in finding words and is frustrated with his ability to communicate. He was seen as an outpatient a few days ago with complaints of dizziness and had a head CT as he apparently on some level failed the neurologic exam in the office. That head CT has been reviewed and shows no acute findings. Patient denies any nausea, vomiting or diarrhea. He has had no change in medications or diet. His symptoms started 45 minutes prior to arrival. Patient was activated as a code stroke given time of onset 45 minutes and abnormal be fast findings of balance and speech Onset (ago): minute(s) Location: speech History of same: Yes Severity: moderate Quality: constant Relieving factors: none Exacerbating factors: none Context: gradual onset On Anticoagulants: No Associated symptoms: diaphoresis Treatments Prior to Arrival: none Related Data Home Medications Medication Instructions Recorded Confirmed atorvastatin 40 mg PO DAILY 01/20/18 01/18/19 lisinopril 20 mg PO DAILY 01/20/18 01/18/19 venlafaxine 300 mg PO DAILY 01/20/18 01/18/19 aspirin 81 mg PO DAILY 01/18/19 01/18/19 clobetasol 1 applic TOPICAL DIRECTED 01/18/19 01/18/19 ibuprofen 400 mg PO Q6H PRN 01/18/19 01/18/19 metoprolol succinate 25 mg PO DAILY 01/18/19 01/18/19 pregabalin [Lyrica] 50 mg PO BID 01/18/19 01/18/19 Allergies Allergy/AdvReac Type Severity Reaction Status Date / Time No Known Drug Allergies Allergy Verified 01/18/19 09:47 Review of Systems Constitutional Denies chills, Denies fever(s), Denies lethargy and Denies weakness Eyes Denies change in vision, Denies eye discharge, Denies irritation and Denies loss of vision ENT Ears, Nose, Mouth, and Throat: Denies change in voice, Reports dizziness, Denies neck pain and Denies sore throat Cardiovascular Denies chest pain, Reports diaphoresis, Denies irregular heart rhythm, Reports lightheadedness, Denies palpitations, Denies dyspnea, Denies dyspnea on exertion and Denies orthopnea Respiratory Denies cough, Denies dyspnea, Denies dyspnea on exertion and Denies wheezing Gastrointestinal Gastrointestinal: Denies abdominal pain, Denies change in bowel habits, Denies diarrhea, Denies nausea and Denies vomiting Genitourinary Denies hematuria, Denies flank pain, Denies urinary incontinence and Denies urinary urgency Musculoskeletal Denies neck pain Integumentary/Breasts Denies pruritus, Denies erythema, Denies rash and Denies wounds Neurologic Denies confusion, Reports dizziness, Denies loss of vision and Denies weakness Psychiatric Denies anxiety, Denies confusion, Denies depression, Denies homicidal ideation and Denies suicidal ideation Endocrine Denies palpitations Hematologic/Lymphatic Denies easy bruising Allergic/Immunologic Denies wheezing [facility] History CAD (coronary artery disease) (Acute) Hyperlipidemia (Chronic) HTN (hypertension) (Chronic) Peripheral neuropathy (Chronic) COPD (chronic obstructive pulmonary disease) (Acute) Depression (Acute) Insomnia (Acute) Spinal stenosis (Acute) Surgical History Total knee replacement status (Acute) Social History household members: none lives independently: Yes Smoking Status: Former smoker alcohol intake: current Social History household members: none lives independently: Yes Smoking Status: Former smoker alcohol intake: current Exam Narrative Exam Narrative: GENERAL: 68-year-old male appears stated age, visibly shaken and in distress HEAD: Atraumatic. Normocephalic. No temporal or scalp tenderness. EYES: Pupils equal round and reactive. Extraocular motions intact. No scleral icterus. No injection or drainage. ENT: Nose without bleeding, purulent drainage or septal hematoma. Throat without erythema, tonsillar hypertrophy or exudate. Uvula midline. Airway patent. NECK: Trachea midline. No JVD or lymphadenopathy. Supple, nontender, no meningeal signs. CARDIOVASCULAR: Regular rate and rhythm without murmurs, gallops, or rubs. RESPIRATORY: Clear to auscultation. Breath sounds equal bilaterally. No wheezes, rales, or rhonchi. GASTROINTESTINAL: Abdomen soft, non-tender, nondistended. No hepato-splenomegaly, or palpable masses. No guarding. EXTREMITIES: No clubbing, cyanosis, or edema. No joint tenderness, effusion, or edema noted. BACK: Nontender without deformity or crepitance. No flank tenderness. NEURO: AOx3. SKIN: No rash or erythema. Initial Vital Signs Initial Vital Signs: Vital Signs Pulse Rate 85 01/18/19 09:47 Respiratory Rate 18 01/18/19 09:47 Blood Pressure 160/89 H 01/18/19 09:47 Pulse Oximetry 97 01/18/19 09:47 Course Orders Ordered: ED Orders 01/18/19 09:45 EKG-12 Lead Routine 01/18/19 09:50 XR chest 1V Stat Complete Blood Count AUTO DIFF Stat Comprehensive Metabolic Panel Stat Lipase Stat Troponin & CK Cardiac Panel Stat 01/18/19 10:06 CT head/brain wo con Stat 01/18/19 10:26 MR stroke Stat 01/18/19 11:50 Trop I [Troponin I] Stat 01/18/19 12:03 EKG-12 Lead Stat 01/18/19 13:26 CT angio neck Stat Sodium Chloride (Normal Saline 0.9%) 1,000 mls @ 150 mls/hr IV CONT NASIR Last Admin: 01/18/19 11:16 Dose: 150 mls/hr Discontinued Medications Acetaminophen (Tylenol) 650 mg PO NOW ONE Stop: 01/18/19 14:06 Last Admin: 01/18/19 14:05 Dose: 650 mg Reevaluation(s) Reevaluation #1: patient resting comfortably, asymptomatic currently Consultations Consultation #1: call to [facility] Stroke to discuss MRI findings. She wants to review images and will call back Time: 13:07 Consultation #2: Call to Cardio at [facility]. Given normal EKGs and troponin x2 in normal range with no ongoing symptoms, no need to pursue emergent cardiac eval Vital Signs - 8 hr 01/18/19 09:47 01/18/19 10:09 01/18/19 10:30 Temperature 98.0 F Pulse Rate 85 74 74 Respiratory Rate 18 14 17 Blood Pressure 160/89 H Blood Pressure [Right Arm] 133/89 131/82 Pulse Oximetry 97 97 94 01/18/19 11:27 01/18/19 12:00 01/18/19 12:30 Temperature Pulse Rate 71 69 68 Respiratory Rate 16 15 16 Blood Pressure Blood Pressure [Right Arm] 131/92 H 156/92 H 137/90 Pulse Oximetry 95 95 98 01/18/19 13:00 01/18/19 14:07 01/18/19 14:30 Temperature Pulse Rate 67 73 65 Respiratory Rate 15 19 17 Blood Pressure Blood Pressure [Right Arm] 140/84 120/78 124/74 Pulse Oximetry 96 96 95 MDM - Neuro Symptoms/Deficit Lab Data Result diagrams: 01/18/19 09:50 01/18/19 09:50 Lab Results 01/18/19 01/18/19 01/18/19 Range/Units 09:50 09:50 11:50 WBC 6.8 (4.5-11.0) X10^3/uL RBC 4.77 (4.5-5.9) X10^6/uL Hgb 14.6 (13.5-17.5) g/dL Hct 43.5 (41-53) % MCV 91.3 (80-100) fL MCH 30.6 (26-34) PG MCHC 33.5 (30-36) % RDW 13.2 (11.6-14.8) % Plt Count 379 (150-400) X10^3/uL Neut % (Auto) 68.9 (50-75) % Lymph % (Auto) 19.4 L (25-40) % Maries % (Auto) 8.4 (3-14) % Eos % (Auto) 2.2 (2-4) % Baso % (Auto) 1.1 (0-2) % Neut # (Auto) 4700 (6367-6124) /uL Lymph # (Auto) 1300 (0301-2791) /uL Maries # (Auto) 600 (0-900) /uL Eos # (Auto) 100 (0-450) /uL Baso # (Auto) 100 (0-100) /uL Sodium 135 L (137-145) mmol/L Potassium 4.4 (3.4-5.1) mmol/L Chloride 98 (98-107) mmol/L Carbon Dioxide 25 (22-32) mmol/L BUN 13 (9-20) mg/dL Creatinine 1.00 (0.66-1.25) mg/dL Estimated GFR > 60.0 (>60) mL/min BUN/Creatinine Ratio 13.0 (6-22) Glucose 119 H (80-110) mg/dL Calcium 9.4 (8.4-10.2) mg/dL Total Bilirubin 0.7 (0.2-1.3) mg/dL AST 31 (17-59) IU/L ALT 38 (21-72) IU/L Alkaline Phosphatase 88 (38-126) U/L Total Creatine Kinase 109 (55-170) U/L CK-MB (CK-2) 1.49 (<2.37) ng/mL CK-MB (CK-2) Rel Index 1.4 L (1.5-5.0) % Troponin I < 0.012 < 0.012 (0.01-0.034) ng/mL Total Protein 7.8 (6.3-8.2) g/dL Albumin 4.9 (3.5-5.0) g/dL Globulin 2.9 (1.7-4.1) g/dL Albumin/Globulin Ratio 1.7 (1.0-2.8) Lipase 81 (23-300) U/L Point of Care Testing Glucose POC 115 Imaging Data MRI - head: Radiologist's impression: [address] [address] Magnetic Resonance Report Signed Patient: Dru Mcpherson [facility]#: [id number] : 9Acct:[id number] Age/Sex: 68 / MDate of Service: 01/18/19 Loc: ED Accession Number: [id number] Procedure: MR stroke Ordering Provider: Ascencion Silva D.O. PROCEDURE: MR STROKE Pre- and post-contrast brain MRI, non-contrast brain MR angiogram, pre- and postcontrast neck MR angiogram INDICATIONS: ataxia, speech trouble normal head ct x2 this week TECHNIQUE: Brain: Noncontrast axial T1 spin echo, axial T2 fast spin echo, sagittal and axial FLAIR, coronal T2 fast spin echo, axial gradient echo, axial diffusion and ADC through the brain. After the administration of contrast, axial 3D VIBE of the cranial vasculature and brain. Brain MRA: Non-contrast 3-D time of flight MR angiogram, with multiple rehnndy-wkkhwfmer-vwsuxkzlhp (MIP) reformats performed. Neck MRA: Axial and sagittal TruFISP through the neck. Coronal dynamic MR angiogram during administration of contrast in the arterial and venous phases, with 3-dimenstional mvsddkp-wxawauzaa-cmoqpnrrln (MIP) reformats constructed from subtraction images. COMPARISON: [facility], MR, MR STROKE, 01/20/2018, 13:48. FINDINGS: Image quality: Excellent. BRAIN: CSF spaces: Ventricles are normal in size and shape. Basal cisterns are patent. No extra-axial fluid collections. Brain: No intracranial bleeds or mass effects. Incidental cavum septum variant. Moise-white matter interface is normal. Diffusion weighted images show no acute ischemic insults. Brainstem appears normal. Normal intravascular flow voids are present. No abnormal intracranial enhancement. Skull and face: Calvarial marrow signal is normal. Orbits appear normal. Sinuses: Sinuses and mastoids are clear except for a tiny mucus retention cyst or polyp in the left maxillary antrum. BRAIN MR ANGIOGRAM: Anterior circulation: Intracranial internal carotid arteries are normal in size and enhancement. The flow within the paired anterior cerebral arteries is normal and symmetric. The flow within the middle cerebral arteries is normal and symmetric. The anterior communicating artery is seen. No stenoses, occlusions, or aneurysms. Posterior circulation: The visualized portions of the vertebral arteries demonstrate normal caliber, and join to form a normal appearing basilar artery. The flow within the posterior cerebral arteries is normal and symmetric. No stenoses, occlusions, or aneurysms. NECK MR ANGIOGRAM: Carotids: Great vessels demonstrate a conventional anatomy as they arise from the aortic arch. The origins of the common carotid arteries appear patent. The calibers and courses of both common carotid arteries are normal. Mild diffuse atherosclerotic narrowing of the right ICA. Focal stenosis involving the left proximal ICA measuring approximately 30%. Posterior circulation: The origins of the vertebral arteries are not well-visualized, however appear grossly patent on the right. Diffuse narrowing of the left vertebral artery with dominant appearance of the right vertebral artery. Normal appearing basilar artery. Miscellaneous: Subclavian arteries appear patent. Pre-contrast images through the neck show no soft tissue abnormalities. IMPRESSION: BRAIN MRI: No evidence of acute ischemia. Diffuse small white matter signal changes, probably represent chronic microvascular ischemic disease, versus statistically less likely demyelination or other infectious, inflammatory, neurodegenerative etiology, technically nonspecific. No abnormal enhancement seen. BRAIN MR ANGIOGRAM: No evidence of intracranial focal occlusion or stenosis NECK MR ANGIOGRAM: 30% focal stenosis involving the proximal left ICA. This appears slightly progressed since 01/20/18 and further assessment with carotid ultrasound could be performed as clinically warranted. Poorly visualized focal stenosis with weblike appearance involving the proximal left common carotid artery approximately 1 cm above the arch. This could be confirmed and further assessed with dedicated CT angiography if clinically necessary. Dictated by: Tyler Khan M.D. on 01/18/2019 at 11:22 Approved by: Tyler Khan M.D. on 01/18/2019 at 11:32 ECG Data Attestation: I personally reviewed and interpreted this ECG as follows: Prior ECG tracings: available for review Interpretation: EKG is normal sinus rhythm rate [83 ] and free of any signs of ischemia or ectopy. No ST segmental elevation or depression. No T wave inversions. Q-waves in 3 and AVF, no change from prior (01/20/2018) MDM Narrative Medical decision making narrative: Multiple etiologies for patient's symptoms considered including: [Stroke versus myocardial infarction versus arrhythmia versus other] Patient's symptoms improved or duration of stay with above-stated therapies. Findings and discharge diagnosis discussed with patient/family followed by verbalization of understanding Return precautions discussed with patient/family whom verbalize understanding. Discharge Plan Departure Patient Disposition: Home Clinical Impression: Dizziness Instructions: DI for Dizziness-Nonvertigo Activity Restrictions/Additional Instructions: *You have been diagnosed with [dizziness. We evaluated you for heart disease and stroke. I have been in close contact with both Cardiology and Neurology regarding her case and we have discussed the labs and imaging and all sure the opinion that you can safely be discharged home.] *What to do: *Take medications as directed *Follow up with your primary care provider in 2-3 days, call for an appointment. Let them know you were seen in the Emergency Department and that we ask that you be seen in follow up *Return to ER if you should have any new, worsening or concerning symptoms Prescriptions: No Action metoprolol succinate 25 mg tablet extended release 24 hr 25 mg PO DAILY RF: 0 clobetasol 0.05 % ointment 1 applic topical DIRECTED RF: 0 Lyrica 50 mg capsule 50 mg PO BID RF: 0 aspirin 81 mg Tablet,Delayed Release (Dr/Ec) 81 mg PO DAILY RF: 0 ibuprofen 200 mg Tablet 400 mg PO Q6H PRN (Reason: pain) RF: 0 atorvastatin 40 mg Tablet 40 mg PO DAILY RF: 0 venlafaxine 150 mg Capsule,Extended Release 24hr 300 mg PO DAILY RF: 0 lisinopril 20 mg tablet 20 mg PO DAILY RF: 0 Referrals: Rupali Anthony PA-C [Primary Care Provider] -
--- NOTE | 2019-01-18 09:50 | DI.RAD.S_ITS ---
PROCEDURE: XR CHEST 1V INDICATIONS: SOB, dizzy, cardiac equivalents TECHNIQUE: One view of the chest was acquired. COMPARISON: [facility], , CHEST 1 VIEW, 12/28/2014, 11:48. FINDINGS: Surgical changes and devices: None. Lungs and pleura: Lungs are clear. No pleural effusions or pneumothorax. Mediastinum: Mediastinal contours appear normal. Heart size is normal. Bones and chest wall: No suspicious bony lesions. Overlying soft tissues appear unremarkable. IMPRESSION: No acute process. Dictated by: Delia Best M.D. on 01/18/2019 at 10:19 Approved by: Delia Best M.D. on 01/18/2019 at 10:20
[2019-01-18 10:02] LABS: Add Manual Diff / Slide Review NO; Basophils Absolute Auto 100 /uL (0-100); Basophils Percent Auto 1.1 % (0-2); Eosinophils Absolute Auto 100 /uL (0-450); Eosinophils Percent Auto 2.2 % (2-4); Hematocrit 43.5 % (41-53); Hemoglobin 14.6 g/dL (13.5-17.5); Lymphocytes Absolute Auto 1300 /uL (1100-4500); Lymphocytes Percent Auto 19.4 % (25-40); Mean Corpuscular HGB Conc 33.5 % (30-36); Mean Corpuscular Hemoglobin 30.6 PG (26-34); Mean Corpuscular Volume 91.3 fL (80-100); Monocytes Absolute Auto 600 /uL (0-900); Monocytes Percent Auto 8.4 % (3-14); Neutrophils Absolute Auto 4700 /uL (1500-7000); Neutrophils Percent Auto 68.9 % (50-75); Platelet Count 379 X10^3/uL (150-400); Red Blood Cell Count 4.77 X10^6/uL (4.5-5.9); Red Cell Distribution Width 13.2 % (11.6-14.8); White Blood Cell Count 6.8 X10^3/uL (4.5-11.0)
--- NOTE | 2019-01-18 10:06 | DI.CT.S_ITS ---
PROCEDURE: CT HEAD/BRAIN WO CON INDICATIONS: recurrence of stroke symptoms TECHNIQUE: Noncontrast 4.5 mm thick angled axial sections acquired from the foramen magnum to the vertex, with coronal and sagittal reformats. For radiation dose reduction, the following was used: automated exposure control, adjustment of mA and/or kV according to patient size. COMPARISON: [facility], CT, CT HEAD/BRAIN WO/W CON, 01/16/2019, 13:31. [facility], MR, MR STROKE, 01/20/2018, 13:48. [facility], CT, CT HEAD/BRAIN WO CON, 01/20/2018, 10:52. [facility], CT, CT HEAD/BRAIN WO CON, 01/21/2018, 17:53. FINDINGS: Image quality: Excellent. CSF spaces: Basal cisterns are patent. No extra-axial fluid collections. The ventricles are symmetric in size and shape. Brain: No intracranial bleeds or masses. There is cerebral volume loss for age, with resultant ventricular and sulcal prominence. There are periventricular and deep white matter chronic small vessel ischemic changes. Mild volume loss is seen involving the left occipital lobe, which is attributed to a remote infarct. There is intracranial internal carotid artery atherosclerosis. Note is made of a cavum septum pellucidum. When discovered in isolation, this is considered to be a developmental variant of no clinical consequence. Skull and face: Calvarium and visualized facial bones appear intact, without suspicious lesions. Sinuses: Visualized sinuses and mastoids are clear. IMPRESSION: No CT findings of acute infarct are seen. Apparent remote left occipital infarction. If there is strong clinical suspicion for an acute stroke, please consider an MRI for further evaluation, as it is more sensitive (assuming that there is no contraindication to MRI). Note is made of age-appropriate brain parenchymal volume loss and chronic small vessel ischemic changes. Dictated by: Fracisco Stokes M.D. on 01/18/2019 at 9:16 Approved by: Fracisco Stokes M.D. on 01/18/2019 at 9:18
--- NOTE | 2019-01-18 10:07 | PC.NURSE ---
pt seen yesterday at clinic had head ct done, today, while bending over felt dizziness and light headedness, denies trauma, had bowel issue enema yesterday with result. denies fever,vomiting,chest pain,shortness of breath. pt reports, noted with difficulty writing things with mistakes. has memory issue.
--- NOTE | 2019-01-18 10:09 | ED_ITS ---
HPI - Neuro Symptoms/Deficit General Chief Complaint: Neuro Symptoms/Deficit Stated Complaint: lightheadedness/breathing isn't normal Time Seen by Provider: 01/18/19 09:40 Source: patient and family Mode of arrival: ambulatory Limitations: no limitations History of Present Illness HPI Narrative: 68-year-old male nonsmoker with history hypertension and hyperlipidemia presents with chief complaint diaphoresis and lightheadedness while gardening this morning. He does have a history of coronary artery disease and was stented many years ago. He denies any chest pain or shortness of breath. He denies any change in his ability to tolerate exercise. He states that he was in the garden felt very dizzy also, furthermore he complains of difficulty in finding words and is frustrated with his ability to communicate. He was seen as an outpatient a few days ago with complaints of dizziness and had a head CT as he apparently on some level failed the neurologic exam in the office. That head CT has been reviewed and shows no acute findings. Patient denies any nausea, vomiting or diarrhea. He has had no change in medications or diet. His symptoms started 45 minutes prior to arrival. Patient was activated as a code stroke given time of onset 45 minutes and abnormal be fast findings of balance and speech Onset (ago): minute(s) Location: speech History of same: Yes Severity: moderate Quality: constant Relieving factors: none Exacerbating factors: none Context: gradual onset On Anticoagulants: No Associated symptoms: diaphoresis Treatments Prior to Arrival: none Related Data Home Medications Medication Instructions Recorded Confirmed atorvastatin 40 mg PO DAILY 01/20/18 01/18/19 lisinopril 20 mg PO DAILY 01/20/18 01/18/19 venlafaxine 300 mg PO DAILY 01/20/18 01/18/19 aspirin 81 mg PO DAILY 01/18/19 01/18/19 clobetasol 1 applic TOPICAL DIRECTED 01/18/19 01/18/19 ibuprofen 400 mg PO Q6H PRN 01/18/19 01/18/19 metoprolol succinate 25 mg PO DAILY 01/18/19 01/18/19 pregabalin [Lyrica] 50 mg PO BID 01/18/19 01/18/19 Allergies Allergy/AdvReac Type Severity Reaction Status Date / Time No Known Drug Allergies Allergy Verified 01/18/19 09:47 Review of Systems Constitutional Denies chills, Denies fever(s), Denies lethargy and Denies weakness Eyes Denies change in vision, Denies eye discharge, Denies irritation and Denies loss of vision ENT Ears, Nose, Mouth, and Throat: Denies change in voice, Reports dizziness, Denies neck pain and Denies sore throat Cardiovascular Denies chest pain, Reports diaphoresis, Denies irregular heart rhythm, Reports lightheadedness, Denies palpitations, Denies dyspnea, Denies dyspnea on exertion and Denies orthopnea Respiratory Denies cough, Denies dyspnea, Denies dyspnea on exertion and Denies wheezing Gastrointestinal Gastrointestinal: Denies abdominal pain, Denies change in bowel habits, Denies d iarrhea, Denies nausea and Denies vomiting Genitourinary Denies hematuria, Denies flank pain, Denies urinary incontinence and Denies urinary urgency Musculoskeletal Denies neck pain Integumentary/Breasts Denies pruritus, Denies erythema, Denies rash and Denies wounds Neurologic Denies confusion, Reports dizziness, Denies loss of vision and Denies weakness Psychiatric Denies anxiety, Denies confusion, Denies depression, Denies homicidal ideation and Denies suicidal ideation Endocrine Denies palpitations Hematologic/Lymphatic Denies easy bruising Allergic/Immunologic Denies wheezing [facility] Medical History CAD (coronary artery disease) (Acute) Hyperlipidemia (Chronic) HTN (hypertension) (Chronic) Peripheral neuropathy (Chronic) COPD (chronic obstructive pulmonary disease) (Acute) Depression (Acute) Insomnia (Acute) Spinal stenosis (Acute) Surgical History Total knee replacement status (Acute) Social History household members: none lives independently: Yes Smoking Status: Former smoker alcohol intake: current Social History household members: none lives independently: Yes Smoking Status: Former smoker alcohol intake: current Exam Narrative Exam Narrative: GENERAL: 68-year-old male appears stated age, visibly shaken and in distress HEAD: Atraumatic. Normocephalic. No temporal or scalp tenderness. EYES: Pupils equal round and reactive. Extraocular motions intact. No scleral i cterus. No injection or drainage. ENT: Nose without bleeding, purulent drainage or septal hematoma. Throat without erythema, tonsillar hypertrophy or exudate. Uvula midline. Airway patent. NECK: Trachea midline. No JVD or lymphadenopathy. Supple, nontender, no meningeal signs. CARDIOVASCULAR: Regular rate and rhythm without murmurs, gallops, or rubs. RESPIRATORY: Clear to auscultation. Breath sounds equal bilaterally. No wheezes, rales, or rhonchi. GASTROINTESTINAL: Abdomen soft, non-tender, nondistended. No hepato- splenomegaly, or palpable masses. No guarding. EXTREMITIES: No clubbing, cyanosis, or edema. No joint tenderness, effusion, or edema noted. BACK: Nontender without deformity or crepitance. No flank tenderness. NEURO: AOx3. SKIN: No rash or erythema. Initial Vital Signs Initial Vital Signs: Vital Signs Pulse Rate 85 01/18/19 09:47 Respiratory Rate 18 01/18/19 09:47 Blood Pressure 160/89 H 01/18/19 09:47 Pulse Oximetry 97 01/18/19 09:47 Course Orders Ordered: ED Orders 01/18/19 09:45 EKG-12 Lead Routine 01/18/19 09:50 XR chest 1V Stat Complete Blood Count AUTO DIFF Stat Comprehensive Metabolic Panel Stat Lipase Stat Troponin & CK Cardiac Panel Stat 01/18/19 10:06 CT head/brain wo con Stat 01/18/19 10:26 MR stroke Stat 01/18/19 11:50 Trop I [Troponin I] Stat 01/18/19 12:03 EKG-12 Lead Stat 01/18/19 13:26 CT angio neck Stat Sodium Chloride (Normal Saline 0.9%) 1,000 mls @ 150 mls/hr IV CONT NASIR Last Admin: 01/18/19 11:16 Dose: 150 mls/hr Discontinued Medications Acetaminophen (Tylenol) 650 mg PO NOW ONE Stop: 01/18/19 14:06 Last Admin: 01/18/19 14:05 Dose: 650 mg Reevaluation(s) Reevaluation #1: patient resting comfortably, asymptomatic currently Consultations Consultation #1: call to [facility] Stroke to discuss MRI findings. She wants to review images and will call back Time: 13:07 Consultation #2: Call to Cardio at [facility]. Given normal EKGs and troponin x2 in normal range with no ongoing symptoms, no need to pursue emergent cardiac eval Vital Signs - 8 hr 01/18/19 09:47 01/18/19 10:09 01/18/19 10:30 Temperature 98.0 F Pulse Rate 85 74 74 Respiratory Rate 18 14 17 Blood Pressure 160/89 H Blood Pressure [Right Arm] 133/89 131/82 Pulse Oximetry 97 97 94 01/18/19 11:27 01/18/19 12:00 01/18/19 12:30 Temperature Pulse Rate 71 69 68 Respiratory Rate 16 15 16 Blood Pressure Blood Pressure [Right Arm] 131/92 H 156/92 H 137/90 Pulse Oximetry 95 95 98 01/18/19 13:00 01/18/19 14:07 01/18/19 14:30 Temperature Pulse Rate 67 73 65 Respiratory Rate 15 19 17 Blood Pressure Blood Pressure [Right Arm] 140/84 120/78 124/74 Pulse Oximetry 96 96 95 MDM - Neuro Symptoms/Deficit Lab Data Result diagrams: 01/18/19 09:50 01/18/19 09:50 Lab Results 01/18/19 01/18/19 01/18/19 Range/Units 09:50 09:50 11:50 WBC 6.8 (4.5-11.0) X10^3/uL RBC 4.77 (4.5-5.9) X10^6/uL Hgb 14.6 (13.5-17.5) g/dL Hct 43.5 (41-53) % MCV 91.3 (80-100) fL MCH 30.6 (26-34) PG MCHC 33.5 (30-36) % RDW 13.2 (11.6-14.8) % Plt Count 379 (150-400) X10^3/uL Neut % (Auto) 68.9 (50-75) % Lymph % (Auto) 19.4 L (25-40) % Hayes % (Auto) 8.4 (3-14) % Eos % (Auto) 2.2 (2-4) % Baso % (Auto) 1.1 (0-2) % Neut # (Auto) 4700 (5266-6886) /uL Lymph # (Auto) 1300 (1214-1304) /uL Hayes # (Auto) 600 (0-900) /uL Eos # (Auto) 100 (0-450) /uL Baso # (Auto) 100 (0-100) /uL Sodium 135 L (137-145) mmol/L Potassium 4.4 (3.4-5.1) mmol/L Chloride 98 (98-107) mmol/L Carbon Dioxide 25 (22-32) mmol/L BUN 13 (9-20) mg/dL Creatinine 1.00 (0.66-1.25) mg/dL Estimated GFR > 60.0 (>60) mL/min BUN/Creatinine Ratio 13.0 (6-22) Glucose 119 H (80-110) mg/dL Calcium 9.4 (8.4-10.2) mg/dL Total Bilirubin 0.7 (0.2-1.3) mg/dL AST 31 (17-59) IU/L ALT 38 (21-72) IU/L Alkaline Phosphatase 88 (38-126) U/L Total Creatine Kinase 109 (55-170) U/L CK-MB (CK-2) 1.49 (<2.37) ng/mL CK-MB (CK-2) Rel Index 1.4 L (1.5-5.0) % Troponin I < 0.012 < 0.012 (0.01-0.034) ng/mL Total Protein 7.8 (6.3-8.2) g/dL Albumin 4.9 (3.5-5.0) g/dL Globulin 2.9 (1.7-4.1) g/dL Albumin/Globulin Ratio 1.7 (1.0-2.8) Lipase 81 (23-300) U/L Point of Care Testing Glucose POC 115 Imaging Data MRI - head: Radiologist's impression: [address] [address] Magnetic Resonance Report Signed Patient: Dru Mcpherson DMR#: [id number] : 9Acct:[id number] Age/Sex: 68 / MDate of Service: 01/18/19 Loc: ED Accession Number: [id number] Procedure: MR stroke Ordering Provider: Ascencion Silva D.O. PROCEDURE: MR STROKE Pre- and post-contrast brain MRI, non-contrast brain MR angiogram, pre- and postcontrast neck MR angiogram INDICATIONS: ataxia, speech trouble normal head ct x2 this week TECHNIQUE: Brain: Noncontrast axial T1 spin echo, axial T2 fast spin echo, sagittal and axial FLAIR, coronal T2 fast spin echo, axial gradient echo, axial diffusion and ADC through the brain. After the administration of contrast, axial 3D VIBE of the cranial vasculature and brain. Brain MRA: Non-contrast 3-D time of flight MR angiogram, with multiple lnqewmk-jkxvdiyev-frercmjnmr (MIP) reformats performed. Neck MRA: Axial and sagittal TruFISP through the neck. Coronal dynamic MR angiogram during administration of contrast in the arterial and venous phases, with 3- dimenstional kidqqag-yjlpuvnzx-jygxorgihx (MIP) reformats constructed from subtraction images. COMPARISON: [facility], , MR STROKE, 01/20/2018, 13:48. FINDINGS: Image quality: Excellent. BRAIN: CSF spaces: Ventricles are normal in size and shape. Basal cisterns are dougherty nt. No extra-axial fluid collections. Brain: No intracranial bleeds or mass effects. Incidental cavum septum variant. Moise-white matter interface is normal. Diffusion weighted images show no acute ischemic insults. Brainstem appears normal. Normal intravascular flow voids are present. No abnormal intracranial enhancement. Skull and face: Calvarial marrow signal is normal. Orbits appear normal. Sinuses: Sinuses and mastoids are clear except for a tiny mucus retention cyst or polyp in the left maxillary antrum. BRAIN MR ANGIOGRAM: Anterior circulation: Intracranial internal carotid arteries are normal in size and enhancement. The flow within the paired anterior cerebral arteries is normal and symmetric. The flow within the middle cerebral arteries is normal and symmetric. The anterior communicating artery is seen. No stenoses, occlusions, or aneurysms. Posterior circulation: The visualized portions of the vertebral arteries demonstrate normal caliber, and join to form a normal appearing basilar artery. The flow within the posterior cerebral arteries is normal and symmetric. No stenoses, occlusions, or aneurysms. NECK MR ANGIOGRAM: Carotids: Great vessels demonstrate a conventional anatomy as they arise from the aortic arch. The origins of the common carotid arteries appear patent. The calibers and courses of both common carotid arteries are normal. Mild diffuse atherosclerotic narrowing of the right ICA. Focal stenosis involving the left proximal ICA measuring approximately 30%. Posterior circulation: The origins of the vertebral arteries are not well- visualized, however appear grossly patent on the right. Diffuse narrowing of the left vertebral artery with dominant appearance of the right vertebral artery. Normal appearing basilar artery. Miscellaneous: Subclavian arteries appear patent. Pre-contrast images through the neck show no soft tissue abnormalities. IMPRESSION: BRAIN MRI: No evidence of acute ischemia. Diffuse small white matter signal changes, probably represent chronic microva scular ischemic disease, versus statistically less likely demyelination or other infectious, inflammatory, neurodegenerative etiology, technically nonspecific. No abnormal enhancement seen. BRAIN MR ANGIOGRAM: No evidence of intracranial focal occlusion or stenosis NECK MR ANGIOGRAM: 30% focal stenosis involving the proximal left ICA. This appears slightly progressed since 01/20/18 and further assessment with carotid ultrasound could be performed as clinically warranted. Poorly visualized focal stenosis with weblike appearance involving the proximal left common carotid artery approximately 1 cm above the arch. This could be confirmed and further assessed with dedicated CT angiography if clinically necessary. Dictated by: Tyler Khan M.D. on 01/18/2019 at 11:22 Approved by: Tyler Khan M.D. on 01/18/2019 at 11:32 ECG Data Attestation: I personally reviewed and interpreted this ECG as follows: Prior ECG tracings: available for review Interpretation: EKG is normal sinus rhythm rate [83 ] and free of any signs of ischemia or ectopy. No ST segmental elevation or depression. No T wave inversions. Q-waves in 3 and AVF, no change from prior (01/20/2018) MDM Narrative Medical decision making narrative: Multiple etiologies for patient's symptoms considered including: [Stroke versus myocardial infarction versus arrhythmia versus other] Patient's symptoms improved or duration of stay with above-stated therapies. Findings and discharge diagnosis discussed with patient/family followed by verbalization of understanding Return precautions discussed with patient/family whom verbalize understanding. Discharge Plan Departure Patient Disposition: Home Clinical Impression: Dizziness Instructions: DI for Dizziness-Nonvertigo Activity Restrictions/Additional Instructions: *You have been diagnosed with [dizziness. We evaluated you for heart disease and stroke. I have been in close contact with both Cardiology and Neurology regarding her case and we have discussed the labs and imaging and all sure the opinion that you can safely be discharged home.] *What to do: *Take medications as directed *Follow up with your primary care provider in 2-3 days, call for an appointment. Let them know you were seen in the Emergency Department and that we ask that you be seen in follow up *Return to ER if you should have any new, worsening or concerning symptoms Prescriptions: No Action metoprolol succinate 25 mg tablet extended release 24 hr 25 mg PO DAILY RF: 0 clobetasol 0.05 % ointment 1 applic topical DIRECTED RF: 0 Lyrica 50 mg capsule 50 mg PO BID RF: 0 aspirin 81 mg Tablet,Delayed Release (Dr/Ec) 81 mg PO DAILY RF: 0 ibuprofen 200 mg Tablet 400 mg PO Q6H PRN (Reason: pain) RF: 0 atorvastatin 40 mg Tablet 40 mg PO DAILY RF: 0 venlafaxine 150 mg Capsule,Extended Release 24hr 300 mg PO DAILY RF: 0 lisinopril 20 mg tablet 20 mg PO DAILY RF: 0 Referrals: Rupali Anthony PA-C [Primary Care Provider] -
--- NOTE | 2019-01-18 10:12 | PC.NURSE ---
doesnt feel right in the head
[2019-01-18 10:19] LABS: Alanine Aminotransferase 38 IU/L (21-72); Albumin 4.9 g/dL (3.5-5.0); Albumin Globulin Ratio 1.7 (1.0-2.8); Alkaline Phosphatase 88 U/L (38-126); Aspartate Aminotransferase 31 IU/L (17-59); Bilirubin Total 0.7 mg/dL (0.2-1.3); Blood Urea Nitrogen 13 mg/dL (9-20); Calcium 9.4 mg/dL (8.4-10.2); Carbon Dioxide 25 mmol/L (22-32); Chloride 98 mmol/L (98-107); Creatine Kinase 109 U/L (55-170); Estimated Glomerular Filt Rate > 60.0 mL/min (>60); Globulin 2.9 g/dL (1.7-4.1); Glucose 119 mg/dL (80-110); HEMOLYSIS < 15 (0-50); Lipase 81 U/L (23-300); Potassium 4.4 mmol/L (3.4-5.1); Sodium 135 mmol/L (137-145); Total Protein 7.8 g/dL (6.3-8.2)
--- NOTE | 2019-01-18 10:26 | DI.MRI.S_ITS ---
PROCEDURE: MR STROKE Pre- and post-contrast brain MRI, non-contrast brain MR angiogram, pre- and postcontrast neck MR angiogram INDICATIONS: ataxia, speech trouble normal head ct x2 this week TECHNIQUE: Brain: Noncontrast axial T1 spin echo, axial T2 fast spin echo, sagittal and axial FLAIR, coronal T2 fast spin echo, axial gradient echo, axial diffusion and ADC through the brain. After the administration of contrast, axial 3D VIBE of the cranial vasculature and brain. Brain MRA: Non-contrast 3-D time of flight MR angiogram, with multiple xxtzqzk-lbuzjfaem-grbumoojvw (MIP) reformats performed. Neck MRA: Axial and sagittal TruFISP through the neck. Coronal dynamic MR angiogram during administration of contrast in the arterial and venous phases, with 3-dimenstional rtzrvnj-nwfanynjs-cxkvbbaqzb (MIP) reformats constructed from subtraction images. COMPARISON: [facility], MR, MR STROKE, 01/20/2018, 13:48. FINDINGS: Image quality: Excellent. BRAIN: CSF spaces: Ventricles are normal in size and shape. Basal cisterns are patent. No extra-axial fluid collections. Brain: No intracranial bleeds or mass effects. Incidental cavum septum variant. Moise-white matter interface is normal. Diffusion weighted images show no acute ischemic insults. Brainstem appears normal. Normal intravascular flow voids are present. No abnormal intracranial enhancement. Skull and face: Calvarial marrow signal is normal. Orbits appear normal. Sinuses: Sinuses and mastoids are clear except for a tiny mucus retention cyst or polyp in the left maxillary antrum. BRAIN MR ANGIOGRAM: Anterior circulation: Intracranial internal carotid arteries are normal in size and enhancement. The flow within the paired anterior cerebral arteries is normal and symmetric. The flow within the middle cerebral arteries is normal and symmetric. The anterior communicating artery is seen. No stenoses, occlusions, or aneurysms. Posterior circulation: The visualized portions of the vertebral arteries demonstrate normal caliber, and join to form a normal appearing basilar artery. The flow within the posterior cerebral arteries is normal and symmetric. No stenoses, occlusions, or aneurysms. NECK MR ANGIOGRAM: Carotids: Great vessels demonstrate a conventional anatomy as they arise from the aortic arch. The origins of the common carotid arteries appear patent. The calibers and courses of both common carotid arteries are normal. Mild diffuse atherosclerotic narrowing of the right ICA. Focal stenosis involving the left proximal ICA measuring approximately 30%. Posterior circulation: The origins of the vertebral arteries are not well-visualized, however appear grossly patent on the right. Diffuse narrowing of the left vertebral artery with dominant appearance of the right vertebral artery. Normal appearing basilar artery. Miscellaneous: Subclavian arteries appear patent. Pre-contrast images through the neck show no soft tissue abnormalities. IMPRESSION: BRAIN MRI: No evidence of acute ischemia. Diffuse small white matter signal changes, probably represent chronic microvascular ischemic disease, versus statistically less likely demyelination or other infectious, inflammatory, neurodegenerative etiology, technically nonspecific. No abnormal enhancement seen. BRAIN MR ANGIOGRAM: No evidence of intracranial focal occlusion or stenosis NECK MR ANGIOGRAM: 30% focal stenosis involving the proximal left ICA. This appears slightly progressed since 01/20/18 and further assessment with carotid ultrasound could be performed as clinically warranted. Poorly visualized focal stenosis with weblike appearance involving the proximal left common carotid artery approximately 1 cm above the arch. This could be confirmed and further assessed with dedicated CT angiography if clinically necessary. Dictated by: Tyler Khan M.D. on 01/18/2019 at 11:22 Approved by: Tyler Khan M.D. on 01/18/2019 at 11:32
[2019-01-18 10:30] LABS: Troponin I < 0.012 ng/mL (0.01-0.034)
[2019-01-18 10:35] LABS: CKMB % Relative Index 1.4 % (1.5-5.0); Creatine Kinase MB 1.49 ng/mL (<2.37)
[2019-01-18] MEDS: SODIUM CHLORIDE 0.9% 1,000 ML 150 ML IV (11:16)
[2019-01-18 12:20] LABS: Troponin I < 0.012 ng/mL (0.01-0.034)
--- NOTE | 2019-01-18 13:26 | DI.CT.S_ITS ---
PROCEDURE: CT ANGIO NECK INDICATIONS: abnormal findings on MRA, request per [place] neuro TECHNIQUE: After the administration of intravenous contrast, 1.5 mm axial sections acquired from the aortic arch to the [place] of [place]. Maximum intensity projection (MIP) reformats were then performed. COMPARISON: [facility], CT, CT HEAD/BRAIN WO/W CON, 01/16/2019, 13:31. [facility], CT, CT HEAD/BRAIN WO CON, 01/18/2019, 9:59. [facility], MR, MR STROKE, 01/18/2019, 10:32. FINDINGS: Image quality: There is streak artifact seen to the level of the left brachiocephalic vein. Carotid system: The great vessels demonstrate a conventional anatomy as they arise from the aortic arch. The origins of the common carotid arteries appear patent. In this patient with this given history, scrutiny is given to the proximal left common carotid artery. There is streak artifact seen through this region. The limits of this study, no hemodynamically significant stenosis can be seen. The common carotid arteries demonstrate normal calibers and courses. The bifurcation regions demonstrate atherosclerotic change with calcification, particularly on the left side. There is a 20-30% stenosis in the origin of the left internal carotid artery. No definite stenosis can be seen on the right. Posterior circulation: The origins of the vertebral arteries appear patent. The more superior portions of the vertebral arteries demonstrate normal course and caliber. They join to form a normal appearing basilar artery. Soft tissues: Visualized neck soft tissues demonstrate no suspicious abnormalities. Thyroid gland demonstrates no significant CT abnormality. Bones: No suspicious bony lesions. Visualized cervical spine appears normally aligned. Degenerative changes are seen, with moderate to severe disc space narrowing at the C3-C4, C6-C7, and C7-T1 levels. Note is made of a cavum septum pellucidum. When discovered in isolation, this is considered to be a developmental variant of no clinical consequence. IMPRESSION: No definite hemodynamically significant stenosis can be seen involving proximal left common carotid artery. However, there is streak artifact through this region. (If this patient is to have a CT angiogram of the neck in the future, it is recommended that this patient be injected on the right side, to avoid streak artifact from dense contrast within the left brachiocephalic vein.) A 20-30% stenosis of the left proximal internal carotid artery is confirmed. Any quantitative stenosis measurements were performed using the NASCET criteria. Dictated by: Fracisco Stokes M.D. on 01/18/2019 at 13:00 Approved by: Fracisco Stokes M.D. on 01/18/2019 at 13:07
[2019-01-18] MEDS: ACETAMINOPHEN 325 MG TABLET 650 MG PO (14:05)
== END 2019-01-18 14:57 | disposition home or self-care (01) ==
PROVIDERS: Emergency Provider Emergency Medicine; PCP Physician Assistant
DX: R42 Dizziness and giddiness (principal); R61 Generalized hyperhidrosis; R47.89 Other speech disturbances; Z79.82 Long term (current) use of aspirin; Z95.818 Presence of other cardiac implants and grafts
CPT/HCPCS: 36415; 36591; 70450; 70498; 70548; 70553; 71045; 80053; 82550; 82553; 82962; 83690; 84484; 85025; 93005; 93041; 96360; 96361; 99285; 99291; A9579; Q9967

== ENCOUNTER 2019-01-19 11:48 | Emergency (ER) | payer OTHER, SELFPAY ==
[2018-01-21 22:07] VITALS: BMI 30.4
[2019-01-19 11:54] VITALS: BP 149/103; PULSE 74; RESP 18; TEMP 37.1; O2SAT 97; BMI 29.5
--- NOTE | 2019-01-19 11:59 | DI.RAD.S_ITS ---
PROCEDURE: XR CHEST 2V INDICATIONS: shortness of breath TECHNIQUE: 2 views of the chest were acquired. COMPARISON: [facility], , XR CHEST 1V, 01/18/2019, 9:58. [facility], , CHEST 1 VIEW, 12/28/2014, 11:48. FINDINGS: Surgical changes and devices: None. Lungs and pleura: A round 7 mm radiodensity is present at the right lung base. This may represent a small nipple shadow and was not present on the prior study dated 01/18/19. Mediastinum: Mediastinal contours are normal. Heart size is normal. Bones and chest wall: No suspicious bony abnormalities. Soft tissues appear unremarkable. IMPRESSION: No acute cardiopulmonary findings. Probable right nipple shadow. Dictated by: Renae Baird M.D. on 01/19/2019 at 12:28 Approved by: Renae Baird M.D. on 01/19/2019 at 12:31
--- NOTE | 2019-01-19 12:38 | ED_ITS ---
HPI - SOB/Dyspnea <Raeann Waller PA-C - Last Filed: 01/19/19 21:50> General Chief Complaint: Shortness of Breath/Dyspnea Stated Complaint: SOB Time Seen by Provider: 01/19/19 12:34 Source: patient Mode of arrival: ambulatory Limitations: no limitations History of Present Illness The patient states that he was sent here by his primary care office due to dyspnea earlier this morning. He states this was a feeling of air hunger, like he can't quite get a full breath in an out. He states that he felt this almost right away when he woke up and sat on the side of the bed. He did not have any cough or jennifer wheeze. He states maybe his chest feels minimally tight, but not painful. He denies any nausea, vomiting, or abdominal pain. Denies any new pain or swelling in the extremities. Denies feeling lightheaded today. He states that he felt like he had ?hard breathing? for maybe about 10 or 15 minutes, then got up and went about his activities, ate breakfast, met with a caregiver and drove to the clinic himself to ask for an appointment to evaluate this and was sent here. He notes that he has more difficulty with his memory in general recently but no acute changes today. He states that he is feeling better since he woke up, no change in symptoms with activity, no other new complaints on systems review. Related Data Home Medications Medication Instructions Recorded Confirmed atorvastatin 40 mg PO DAILY 01/20/18 01/19/19 lisinopril 20 mg PO DAILY 01/20/18 01/19/19 venlafaxine 300 mg PO DAILY 01/20/18 01/19/19 aspirin 81 mg PO DAILY 01/18/19 01/19/19 clobetasol 1 applic TOPICAL DIRECTED 01/18/19 01/19/19 ibuprofen 400 mg PO Q6H PRN 01/18/19 01/19/19 metoprolol succinate 25 mg PO DAILY 01/18/19 01/19/19 pregabalin [Lyrica] 50 mg PO BID 01/18/19 01/19/19 Allergies Allergy/AdvReac Type Severity Reaction Status Date / Time No Known Drug Allergies Allergy Verified 01/19/19 11:57 Review of Systems <Raeann Waller PA-C - Last Filed: 01/19/19 21:50> Review of Systems ROS Unobtainable: All systems reviewed & are unremarkable except as noted in HPI and below PFSH <Raeann Waller PA-C - Last Filed: 01/19/19 21:50> Medical History CAD (coronary artery disease) (Acute) Hyperlipidemia (Chronic) HTN (hypertension) (Chronic) Peripheral neuropathy (Chronic) COPD (chronic obstructive pulmonary disease) (Acute) Depression (Acute) Insomnia (Acute) Spinal stenosis (Acute) Surgical History Total knee replacement status (Acute) Social History household members: none lives independently: Yes Smoking Status: Former smoker alcohol intake: current Social History household members: none lives independently: Yes Smoking Status: Former smoker alcohol intake: current Exam <Raeann Waller PA-C - Last Filed: 01/19/19 21:50> Narrative Exam Narrative: GENERAL APPEARANCE: Patient sitting comfortably, appears well HEENT: PERRL, EOMI, normal oropharynx, a little PND noted NECK/THYROID: Neck supple, no JVD. LUNGS: Clear to auscultation bilaterally. HEART: Regular rate and rhythm without murmur, normal S1, S2, no S3 or S4. ABDOMEN: Soft, NT, ND, + BS x 4 quadrants EXTREMITIES: No edema. No calf tenderness NEUROLOGIC: Alert and oriented, normal speech, and coordination. Initial Vital Signs Initial Vital Signs: Vital Signs Temperature 98.7 F 01/19/19 11:54 Pulse Rate 74 01/19/19 11:54 Respiratory Rate 18 01/19/19 11:54 Blood Pressure 149/103 H 01/19/19 11:54 Pulse Oximetry 97 01/19/19 11:54 <Ascencion Silva DO - Last Filed: 01/22/19 07:06> Initial Vital Signs Initial Vital Signs: Vital Signs Temperature 98.7 F 01/19/19 11:54 Pulse Rate 74 01/19/19 11:54 Respiratory Rate 18 01/19/19 11:54 Blood Pressure 149/103 H 01/19/19 11:54 Pulse Oximetry 97 01/19/19 11:54 Course <Raeann Waller PA-C - Last Filed: 01/19/19 21:50> Additional Information: Patient was feeling significantly by the time of arrival, going about his usual activities, requesting to discharge home. No acute findings on workup today or changes from yesterday. He already has follow-up with primary care setup early next week, agreed to return if any acutely worsening symptoms or changes in the interim. Orders Ordered: Discontinued Medications Albuterol/Ipratropium (Duoneb) 3 ml INH NOW ONE Stop: 01/19/19 13:03 Last Admin: 01/19/19 13:06 Dose: 3 ml Vital Signs - 8 hr 01/19/19 14:00 Pulse Rate 80 Respiratory Rate 18 Blood Pressure [Left Arm] 142/72 H Pulse Oximetry 98 <Ascencion Silva DO - Last Filed: 01/22/19 07:06> Orders Ordered: Discontinued Medications Albuterol/Ipratropium (Duoneb) 3 ml INH NOW ONE Stop: 01/19/19 13:03 Last Admin: 01/19/19 13:06 Dose: 3 ml Vital Signs - 8 hr 01/19/19 14:00 Pulse Rate 80 Respiratory Rate 18 Blood Pressure [Left Arm] 142/72 H Pulse Oximetry 98 MDM - SOB/Dyspnea <Raeann Waller PA-C - Last Filed: 01/19/19 21:50> Lab Data Attestation: I reviewed the patient's lab results. Result diagrams: 01/19/19 12:15 01/19/19 12:15 Lab Results 01/19/19 01/19/19 01/19/19 Range/Units 12:15 12:15 12:15 WBC 7.5 (4.5-11.0) X10^3/uL RBC 4.62 (4.5-5.9) X10^6/uL Hgb 14.1 (13.5-17.5) g/dL Hct 42.1 (41-53) % MCV 91.2 (80-100) fL MCH 30.5 (26-34) PG MCHC 33.4 (30-36) % RDW 13.1 (11.6-14.8) % Plt Count 372 (150-400) X10^3/uL Neut % (Auto) 63.5 (50-75) % Lymph % (Auto) 22.2 L (25-40) % [place] % (Auto) 10.5 (3-14) % Eos % (Auto) 3.0 (2-4) % Baso % (Auto) 0.8 (0-2) % Neut # (Auto) 4700 (5151-6469) /uL Lymph # (Auto) 1700 (2752-2298) /uL [place] # (Auto) 800 (0-900) /uL Eos # (Auto) 200 (0-450) /uL Baso # (Auto) 100 (0-100) /uL PT 11.0 (10.1-12.7) SECONDS INR 1.0 (0.9-1.3) APTT 31 (26.4-36.2) SECONDS D-Dimer (<230) ng/mL Sodium 136 L (137-145) mmol/L Potassium 4.3 (3.4-5.1) mmol/L Chloride 99 (98-107) mmol/L Carbon Dioxide 25 (22-32) mmol/L BUN 13 (9-20) mg/dL Creatinine 1.00 (0.66-1.25) mg/dL Estimated GFR > 60.0 (>60) mL/min BUN/Creatinine Ratio 13.0 (6-22) Glucose 90 (80-110) mg/dL Calcium 9.6 (8.4-10.2) mg/dL Total Bilirubin 0.7 (0.2-1.3) mg/dL AST 35 (17-59) IU/L ALT 38 (21-72) IU/L Alkaline Phosphatase 86 (38-126) U/L Total Creatine Kinase 186 H (55-170) U/L CK-MB (CK-2) 1.43 (<2.37) ng/mL CK-MB (CK-2) Rel Index 0.8 L (1.5-5.0) % Troponin I < 0.012 (0.01-0.034) ng/mL B-Natriuretic Peptide < 100 (<100) Total Protein 7.7 (6.3-8.2) g/dL Albumin 4.7 (3.5-5.0) g/dL Globulin 3.0 (1.7-4.1) g/dL Albumin/Globulin Ratio 1.6 (1.0-2.8) Lipase 73 (23-300) U/L 01/19/19 Range/Units 12:15 WBC (4.5-11.0) X10^3/uL RBC (4.5-5.9) X10^6/uL Hgb (13.5-17.5) g/dL Hct (41-53) % MCV (80-100) fL MCH (26-34) PG MCHC (30-36) % RDW (11.6-14.8) % Plt Count (150-400) X10^3/uL Neut % (Auto) (50-75) % Lymph % (Auto) (25-40) % [place] % (Auto) (3-14) % Eos % (Auto) (2-4) % Baso % (Auto) (0-2) % Neut # (Auto) (3797-5492) /uL Lymph # (Auto) (8568-4451) /uL [place] # (Auto) (0-900) /uL Eos # (Auto) (0-450) /uL Baso # (Auto) (0-100) /uL PT (10.1-12.7) SECONDS INR (0.9-1.3) APTT (26.4-36.2) SECONDS D-Dimer 222 (<230) ng/mL Sodium (137-145) mmol/L Potassium (3.4-5.1) mmol/L Chloride (98-107) mmol/L Carbon Dioxide (22-32) mmol/L BUN (9-20) mg/dL Creatinine (0.66-1.25) mg/dL Estimated GFR (>60) mL/min BUN/Creatinine Ratio (6-22) Glucose (80-110) mg/dL Calcium (8.4-10.2) mg/dL Total Bilirubin (0.2-1.3) mg/dL AST (17-59) IU/L ALT (21-72) IU/L Alkaline Phosphatase (38-126) U/L Total Creatine Kinase (55-170) U/L CK-MB (CK-2) (<2.37) ng/mL CK-MB (CK-2) Rel Index (1.5-5.0) % Troponin I (0.01-0.034) ng/mL B-Natriuretic Peptide (<100) Total Protein (6.3-8.2) g/dL Albumin (3.5-5.0) g/dL Globulin (1.7-4.1) g/dL Albumin/Globulin Ratio (1.0-2.8) Lipase (23-300) U/L Imaging Data Chest x-ray: Radiologist's impression: [address] [address] XRay Report Signed Patient: Dru Mcpherson DMR#: [id number] : 9Acct:[id number] Age/Sex: 68 / MDate of Service: 01/19/19 Loc: ED Accession Number: [id number] Procedure: XR chest 2V Ordering Provider: Ascencion Silva D.O. PROCEDURE: XR CHEST 2V INDICATIONS: shortness of breath TECHNIQUE: 2 views of the chest were acquired. COMPARISON: [facility], , XR CHEST 1V, 01/18/2019, 9:58. [facility], , CHEST 1 VIEW, 12/28/2014, 11:48. FINDINGS: Surgical changes and devices: None. Lungs and pleura: A round 7 mm radiodensity is present at the right lung base. This may represent a small nipple shadow and was not present on the prior study dated 01/18/19. Mediastinum: Mediastinal contours are normal. Heart size is normal. Bones and chest wall: No suspicious bony abnormalities. Soft tissues appear unremarkable. IMPRESSION: No acute cardiopulmonary findings. Probable right nipple shadow. Dictated by: Renae Baird M.D. on 01/19/2019 at 12:28 Approved by: Renae Baird M.D. on 01/19/2019 at 12:31 ECG Data Attestation: I personally reviewed and interpreted this ECG as follows: (Normal sinus rhythm with rate 65, first-degree AV block, normal axis) <Ascencion Silva DO - Last Filed: 01/22/19 07:06> Lab Data Lab Results 01/19/19 01/19/19 01/19/19 Range/Units 12:15 12:15 12:15 WBC 7.5 (4.5-11.0) X10^3/uL RBC 4.62 (4.5-5.9) X10^6/uL Hgb 14.1 (13.5-17.5) g/dL Hct 42.1 (41-53) % MCV 91.2 (80-100) fL MCH 30.5 (26-34) PG MCHC 33.4 (30-36) % RDW 13.1 (11.6-14.8) % Plt Count 372 (150-400) X10^3/uL Neut % (Auto) 63.5 (50-75) % Lymph % (Auto) 22.2 L (25-40) % [place] % (Auto) 10.5 (3-14) % Eos % (Auto) 3.0 (2-4) % Baso % (Auto) 0.8 (0-2) % Neut # (Auto) 4700 (7661-3746) /uL Lymph # (Auto) 1700 (8259-3580) /uL [place] # (Auto) 800 (0-900) /uL Eos # (Auto) 200 (0-450) /uL Baso # (Auto) 100 (0-100) /uL PT 11.0 (10.1-12.7) SECONDS INR 1.0 (0.9-1.3) APTT 31 (26.4-36.2) SECONDS D-Dimer (<230) ng/mL Sodium 136 L (137-145) mmol/L Potassium 4.3 (3.4-5.1) mmol/L Chloride 99 (98-107) mmol/L Carbon Dioxide 25 (22-32) mmol/L BUN 13 (9-20) mg/dL Creatinine 1.00 (0.66-1.25) mg/dL Estimated GFR > 60.0 (>60) mL/min BUN/Creatinine Ratio 13.0 (6-22) Glucose 90 (80-110) mg/dL Calcium 9.6 (8.4-10.2) mg/dL Total Bilirubin 0.7 (0.2-1.3) mg/dL AST 35 (17-59) IU/L ALT 38 (21-72) IU/L Alkaline Phosphatase 86 (38-126) U/L Total Creatine Kinase 186 H (55-170) U/L CK-MB (CK-2) 1.43 (<2.37) ng/mL CK-MB (CK-2) Rel Index 0.8 L (1.5-5.0) % Troponin I < 0.012 (0.01-0.034) ng/mL B-Natriuretic Peptide < 100 (<100) Total Protein 7.7 (6.3-8.2) g/dL Albumin 4.7 (3.5-5.0) g/dL Globulin 3.0 (1.7-4.1) g/dL Albumin/Globulin Ratio 1.6 (1.0-2.8) Lipase 73 (23-300) U/L 01/19/19 Range/Units 12:15 WBC (4.5-11.0) X10^3/uL RBC (4.5-5.9) X10^6/uL Hgb (13.5-17.5) g/dL Hct (41-53) % MCV (80-100) fL MCH (26-34) PG MCHC (30-36) % RDW (11.6-14.8) % Plt Count (150-400) X10^3/uL Neut % (Auto) (50-75) % Lymph % (Auto) (25-40) % [place] % (Auto) (3-14) % Eos % (Auto) (2-4) % Baso % (Auto) (0-2) % Neut # (Auto) (8776-3461) /uL Lymph # (Auto) (3641-0915) /uL [place] # (Auto) (0-900) /uL Eos # (Auto) (0-450) /uL Baso # (Auto) (0-100) /uL PT (10.1-12.7) SECONDS INR (0.9-1.3) APTT (26.4-36.2) SECONDS D-Dimer 222 (<230) ng/mL Sodium (137-145) mmol/L Potassium (3.4-5.1) mmol/L Chloride (98-107) mmol/L Carbon Dioxide (22-32) mmol/L BUN (9-20) mg/dL Creatinine (0.66-1.25) mg/dL Estimated GFR (>60) mL/min BUN/Creatinine Ratio (6-22) Glucose (80-110) mg/dL Calcium (8.4-10.2) mg/dL Total Bilirubin (0.2-1.3) mg/dL AST (17-59) IU/L ALT (21-72) IU/L Alkaline Phosphatase (38-126) U/L Total Creatine Kinase (55-170) U/L CK-MB (CK-2) (<2.37) ng/mL CK-MB (CK-2) Rel Index (1.5-5.0) % Troponin I (0.01-0.034) ng/mL B-Natriuretic Peptide (<100) Total Protein (6.3-8.2) g/dL Albumin (3.5-5.0) g/dL Globulin (1.7-4.1) g/dL Albumin/Globulin Ratio (1.0-2.8) Lipase (23-300) U/L Discharge Plan Departure Patient Disposition: Home Clinical Impression: Acute dyspnea Discharge Date/Time: 01/19/19 14:50 Interventions: ED Discharge Assessment Last Done: 01/19/19 14:50 Instructions: DI for Shortness of Breath Activity Restrictions/Additional Instructions: There was no abnormality on your x-ray, EKG, or lab work to explain your symptoms today, and since you are feeling better, you can return home. Please return as we talked about if you have any acutely worsening symptoms, or new symptoms such as fever, pain or swelling in your extremities, chest pain or feeling faint. Otherwise, please monitor and follow up with your primary care office next week as you have already planned. You did have some postnasal drip in your throat today, and if you wish you could try an [id number] antihistamine such as Claritin or Zyrtec once daily to see if this is helpful. Prescriptions: No Action metoprolol succinate 25 mg tablet extended release 24 hr 25 mg PO DAILY RF: 0 clobetasol 0.05 % ointment 1 applic topical DIRECTED RF: 0 Lyrica 50 mg capsule 50 mg PO BID RF: 0 aspirin 81 mg Tablet,Delayed Release (Dr/Ec) 81 mg PO DAILY RF: 0 ibuprofen 200 mg Tablet 400 mg PO Q6H PRN (Reason: pain) RF: 0 atorvastatin 40 mg Tablet 40 mg PO DAILY RF: 0 venlafaxine 150 mg Capsule,Extended Release 24hr 300 mg PO DAILY RF: 0 lisinopril 20 mg tablet 20 mg PO DAILY RF: 0 Referrals: Rupali Anthony PA-C [Primary Care Provider] - <Ascencion Silva DO - Last Filed: 01/22/19 07:06> Cosign ED Attending Danielle Attestation: I was immediately available in the department for consultation. Documentation has been reviewed. I agree with assessment and plan.
[2019-01-19 13:06] LABS: Add Manual Diff / Slide Review NO; Basophils Absolute Auto 100 /uL (0-100); Basophils Percent Auto 0.8 % (0-2); Eosinophils Absolute Auto 200 /uL (0-450); Hematocrit 42.1 % (41-53); Hemoglobin 14.1 g/dL (13.5-17.5); Lymphocytes Absolute Auto 1700 /uL (1100-4500); Lymphocytes Percent Auto 22.2 % (25-40); Mean Corpuscular HGB Conc 33.4 % (30-36); Mean Corpuscular Hemoglobin 30.5 PG (26-34); Mean Corpuscular Volume 91.2 fL (80-100); Monocytes Absolute Auto 800 /uL (0-900); Monocytes Percent Auto 10.5 % (3-14); Neutrophils Absolute Auto 4700 /uL (1500-7000); Neutrophils Percent Auto 63.5 % (50-75); PTT Partial Thromboplastin Tim 31 SECONDS (26.4-36.2); Platelet Count 372 X10^3/uL (150-400); Red Blood Cell Count 4.62 X10^6/uL (4.5-5.9); Red Cell Distribution Width 13.1 % (11.6-14.8); White Blood Cell Count 7.5 X10^3/uL (4.5-11.0)
[2019-01-19] MEDS: ALBUTEROL/IPRATROPIUM 3 ML AMPUL INH (13:06)
[2019-01-19 13:12] LABS: Alanine Aminotransferase 38 IU/L (21-72); Albumin 4.7 g/dL (3.5-5.0); Albumin Globulin Ratio 1.6 (1.0-2.8); Alkaline Phosphatase 86 U/L (38-126); Aspartate Aminotransferase 35 IU/L (17-59); Bilirubin Total 0.7 mg/dL (0.2-1.3); Blood Urea Nitrogen 13 mg/dL (9-20); Calcium 9.6 mg/dL (8.4-10.2); Carbon Dioxide 25 mmol/L (22-32); Chloride 99 mmol/L (98-107); Creatine Kinase 186 U/L (55-170); Estimated Glomerular Filt Rate > 60.0 mL/min (>60); Glucose 90 mg/dL (80-110); HEMOLYSIS < 15 (0-50); Lipase 73 U/L (23-300); Potassium 4.3 mmol/L (3.4-5.1); Sodium 136 mmol/L (137-145); Total Protein 7.7 g/dL (6.3-8.2)
[2019-01-19 13:21] LABS: B Type Natriuretic Peptide < 100 (<100)
[2019-01-19 13:22] LABS: Troponin I < 0.012 ng/mL (0.01-0.034)
[2019-01-19 13:27] LABS: CKMB % Relative Index 0.8 % (1.5-5.0); Creatine Kinase MB 1.43 ng/mL (<2.37)
[2019-01-19 13:33] VITALS: PULSE 74; RESP 16; O2SAT 97
[2019-01-19 13:45] LABS: D Dimer 222 ng/mL (<230)
[2019-01-19 14:00] VITALS: BP 142/72; PULSE 80; RESP 18; O2SAT 98
== END 2019-01-19 14:50 | disposition home or self-care (01) ==
PROVIDERS: Emergency Medicine; Emergency Provider Internal Medicine; PCP Physician Assistant
DX: R06.00 Dyspnea, unspecified (principal); R07.89 Other chest pain; Z79.82 Long term (current) use of aspirin
CPT/HCPCS: 36415; 71046; 80053; 82550; 82553; 83690; 83880; 84484; 85025; 85379; 85610; 85730; 93005; 93010; 94640; 99283; 99285

== ENCOUNTER → 2019-03-13 12:50 | Outpatient (CLI) | payer OTHER, SELFPAY ==
[2018-01-21 22:07] VITALS: BMI 30.4
--- NOTE | 2019-03-23 08:40 | PM.PFT.1 ---
Pulmonary Function Test Referral & Results Date Patient Seen: 03/13/19 Requesting provider: Annemarie Jewell Results: The spirometry demonstrates an FVC of 4.26 L which is 92% of predicted. The FEV1 was measured at 3.21 L which is 94% of predicted. The FEV1/FVC ratio was 75 which is 101% of predicted. No bronchodilator was administered. Lung volumes show an SVC of 4.46 L which is 94% of predicted. The diffusing capacity was measured at 22.8 which is 67% of predicted. The maximum voluntary ventilation was normal Interpretation: This study demonstrates probably normal spirometry There is however a moderate reduction in diffusing capacity suggesting an element of disease at the capillary alveolar level
== END ==
PROVIDERS: Family Provider Internal Medicine; PCP Physician Assistant; Visit Provider Physician Assistant
DX: R06.02 Shortness of breath (principal)
CPT/HCPCS: 94010; 94726; 94729

== ENCOUNTER → 2019-03-31 12:32 | Outpatient (CLI) | payer OTHER, SELFPAY ==
[2018-01-21 22:07] VITALS: BMI 30.4
--- NOTE | 2019-03-31 | DI.MRI.S_ITS ---
PROCEDURE: MR LUMBAR SPINE WO CON INDICATIONS: Intervertebral disc disorders with radiculopathy TECHNIQUE: Noncontrast sagittal T1 spin echo and T2 fast echo, sagittal STIR, axial T1 and T2 fast spin echo through the lumbar spine. In cases with scoliosis, additional coronal T2 fast spin echo may be performed. COMPARISON: [facility], , L-SPINE WITHOUT CONTRAST, 10/16/2015, 7:53. FINDINGS: Image quality: Excellent. Alignment and Curvature: There is straightening of normal lumbar lordosis. No spondylolisthesis. Bone Marrow: There is no acute compression fracture. Degenerative endplate changes are noted throughout the lumbar spine. No gross marrow edema. Spinal Cord: Conus medullaris terminates at the L1 to level. Visualized cord demonstrates normal signal and size. Paraspinous Soft Tissues: No paravertebral masses. L1-L2: Decreased intervertebral disc space and degenerative endplate changes are noted. There is mild broad-based disc bulge and bilateral facet arthrosis. No significant canal stenosis or neuroforaminal narrowing. L2-L3: There is near-complete loss of intervertebral disc space. Broad-based disc bulge and bilateral facet arthrosis is seen causing [id number] central canal stenosis and mild to moderate bilateral neuroforaminal narrowing. L3-L4: Decreased intervertebral disc space and degenerative endplate changes are seen. Broad-based disc bulge and bilateral facet arthrosis is noted. There is mild to moderate central canal stenosis and moderate to severe left-sided neural foramina narrowing. Mild right-sided neuroforaminal narrowing is also seen. There is likely compression of the exiting left L3 nerve root. L4-L5: There is near-complete loss of intervertebral disc space and degenerative endplate changes. Diffuse disc bulge and bilateral facet arthrosis is seen. There is prior left laminectomy. No significant central canal stenosis. Moderate to severe bilateral neuroforaminal narrowing is seen. There is likely compression of bilateral exiting L4 nerve roots. L5-S1: Decreased intervertebral disc space and degenerative end plate changes are noted. Broad-based disc bulge and bilateral facet arthrosis is seen causing moderate central canal stenosis and moderate to severe bilateral neuroforaminal narrowing. There is compression of bilateral exiting L5 nerve roots slightly worse on the left side. IMPRESSION: 1. Post left laminectomy changes at L4-5 level. Degenerative disc bulge and bilateral facet arthrosis is seen at L4-5 level with bilateral neural foramina narrowing. No significant central canal stenosis. 2. Degenerative disc bulge and bilateral facet arthrosis throughout rest of lumbar spine causing [id number] central canal stenosis and bilateral neural foramina narrowing. 3. No acute compression fracture. No significant spondylolisthesis. No marrow edema. Dictated by: Chris Dumont M.D. on 04/02/2019 at 11:00 Approved by: Chris Dumont M.D. on 04/02/2019 at 11:10
== END ==
PROVIDERS: PCP Physician Assistant; Visit Provider Physician Assistant
DX: M51.16 Intervertebral disc disorders with radiculopathy, lumbar region (principal); M51.17 Intervertebral disc disorders with radiculopathy, lumbosacral region; M47.26 Other spondylosis with radiculopathy, lumbar region; M47.27 Other spondylosis with radiculopathy, lumbosacral region; M48.061 Spinal stenosis, lumbar region without neurogenic claudication; M48.07 Spinal stenosis, lumbosacral region
CPT/HCPCS: 72148

== ENCOUNTER 2019-06-08 10:30 | Outpatient (RCR) | payer OTHER, SELFPAY ==
[2018-01-21 22:07] VITALS: BMI 30.4
--- NOTE | 2019-04-26 11:55 | PT.OIE ---
Current Diagnoses Spinal stenosis, lumbar region without neurogenic claudication (04/26/19) Radiculopathy, lumbar region (04/26/19) Past Medical History (Last Reviewed 01/19/19 @ 13:00 by Raeann Waller PA-C) CAD (coronary artery disease) (Acute) Hyperlipidemia (Chronic) HTN (hypertension) (Chronic) Peripheral neuropathy (Chronic) COPD (chronic obstructive pulmonary disease) (Acute) Depression (Acute) Insomnia (Acute) Spinal stenosis (Acute) Past Surgical History (Last Reviewed 01/19/19 @ 13:00 by Raeann Waller PA-C) Total knee replacement status (Acute) Provider Visit Care Team Role Provider Type Rupali Anthony PA-C Attending Provider Advanced Diesel Dinkey Engineer Primary Care Provider Specialty: Internal Medicine Address: [address] [place] [address] Email: Physical Therapy Initial Evaluation PT-OP-A Visit Information Start: 04/26/19 11:04 Freq: Status: Active Protocol: Document 04/26/19 09:45 HH (Rec: 04/26/19 11:17 [email or web address]) Out-Patient Physical Therapy Visit Information Visit Information Visit Type Initial Evaluation Visit Start Time 09:45 Visit Stop Time 10:30 Total Visit Minutes 45 Visit Number 09/26 Number of SUPERVISOR BLOOMING MILL Visits 0 Evaluation Information Evaluation Date 04/26/19 PT-OP-B Current Condition Start: 04/26/19 11:04 Freq: Status: Active Protocol: Document 04/26/19 09:45 HH (Rec: 04/26/19 11:17 [email or web address]) Current Condition History of Current Condition Onset Date many years ago Current Complaints Chronic LBP L>R, difficulty in walking History of Current Condition Pt presents to clinic with chronic LBP L>R. Pt c/o his back pain as constant achy/ burning pain mostly on L side. He was unable to explain triggers of his pain or any relieving moments, but tends to be worse in the morning. Pt has spinal stenosis and degenerative disc disease through MRI 04/02/19. Degenerative disc bulge and bilateral facet arthrosis is seen at L4-L5 with bilateral neural foramina narrowing. Pt had left laminectomy at L4-L5 and cervical laminectomy >10 years ago; B TKA >15 years. He explained his B front part of lower legs and top of his feet tend to feel numb since the surgery but he thinks it could be from his back pain as well. Pt also stated he is very still in general and wants to learn exercise properly. Prior Treatments and Tests Pt has spinal stenosis and degenerative disc disease through MRI 04/02/19. Degenerative disc bulge and bilateral facet arthrosis is seen at L4-L5 with bilateral neural foramina narrowing. Pt had left laminectomy at L4-L5 and cervical laminectomy >10 years ago; B TKA >15 years. Stent placement >10 years ago Treatment Goals Patient/Caregiver Goals 1. To be pain free during the day 2. to exercise regularly with proper body mechanics. Prior Functional Status Baseline Function- ADL's Independent Baseline Function- Mobility Independent Current Functional Impairments (Reported) Functional Limitations- ADL's increase in pain during bending over to vegetable picker objects. Functional Limitations- Mobility/Gait Increase in back pain with increase in activity level ( walk >2 miles, hill climbing ) Personal Factors Other Personal Factors That May Effect depression Therapy/Recovery possible dementia memory loss stent placement PT-OP-C Subjective Start: 04/26/19 11:04 Freq: Status: Active Protocol: Document 04/26/19 09:45 HH (Rec: 04/26/19 11:54 [email or web address]) OP-PT Subjective Patient Comments Patient Comments My back is always sore and my body is stiff at all times. Patient Questionnaires Oswestry Low Back Index Oswestry Score 14 Oswestry Impairment 1 to 19% Impaired (Score 1-19) OP-PT Pain Assessment Location LBP Pain Location Details L > R (lumbar paraspinals) Intensity 3 Scale Used Numeric (1 - 10) Description Aching Burning Frequency Constant Pain Aggravating Factors Activity Exercise Standing Sitting Walking Pain Alleviating Factors None PT-OP-D Balance Start: 04/26/19 11:04 Freq: Status: Active Protocol: Document 04/26/19 09:45 HH (Rec: 04/26/19 11:54 [email or web address]) Balance Tests Single Limb Standing Single Limb- Right 10 Single Limb- Left 5 PT-OP-F Manual Assessment Start: 04/26/19 11:04 Freq: Status: Active Protocol: Document 04/26/19 09:45 HH (Rec: 04/26/19 11:54 [email or web address]) Manual Assessments Soft Tissue Assessment Soft Tissue Mobility Assessment significant tenderness to pressure on L lumbar paraspinals Joint Mobility Assessment Joint Mobility Assessment decreased PA mobility at L1-L5 PT-OP-G Mobility & Gait Start: 04/26/19 11:04 Freq: Status: Active Protocol: Document 04/26/19 09:45 HH (Rec: 04/26/19 11:55 HH [email or web address]) OP Gait Assessment Gait Deviations General Gait Pattern Antalgic Decreased Stride Length Decreased Feet Clearance Comments Gait Comments L antalgic gait. Decreased heel strike on L PT-OP-H Neuro Start: 04/26/19 11:04 Freq: Status: Active Protocol: Document 04/26/19 09:45 HH (Rec: 04/26/19 11:54 HH [email or web address]) Sensation Evaluation Gross Sensation Gross Sensation Left LE Impaired Right LE Impaired Sensation Description Numbness Dermatome Impairments L4 L5 Deep Tendon Reflex & Clonus Assessment Deep Tendon Reflex Bilateral Achilles Deep Tendon Reflex 2+ Normal Bilateral Patellar Deep Tendon Reflex 2+ Normal PT-OP-K Range of Motion Start: 04/26/19 11:04 Freq: Status: Active Protocol: Document 04/26/19 09:45 HH (Rec: 04/26/19 11:54 [email or web address]) Lumbar Spine Range of Motion Lumbar Spine Active Percentage Testing Position Standing Flexion 20 Extension 10 Lateral Flexion Left 25 Lateral Flexion Right 25 ROM Limitations Soft Tissue Tightness Hip Goniometric Range of Motion Hip Right Active Testing Position Supine Flexion w/Knee Flexed 90 Straight Leg Raise 60 Extension 5 Left Active Testing Position Supine Flexion w/Knee Flexed 95 Straight Leg Raise 70 Extension 5 PT-OP-L Special Tests Start: 04/26/19 11:04 Freq: Status: Active Protocol: Document 04/26/19 09:45 HH (Rec: 04/26/19 11:54 [email or web address]) Special Tests Lumbar Spine Special Tests hip extension Test Results +VE L lumbar region Comments pain reproduced during active R hip extension A-P Shearing Test Results +VE Comments L1--L4 Mono Test Results +VE B Straight Leg Raise Test Results +VE B Comments R= 60 degrees ; L= 70 degrees PT-OP-M Strength Start: 04/26/19 11:04 Freq: Status: Active Protocol: Document 04/26/19 09:45 HH (Rec: 04/26/19 11:54 [email or web address]) Hip Strength Hip Manual Muscle Testing Right Flexion (L2) 4+ Good+ Extension (S1) 4- Good- Abduction 4- Good- Adduction 4- Good- Left Flexion (L2) 4+ Good+ Extension (S1) 4- Good- Abduction 4- Good- Adduction 4- Good- PT-OP-T Assessment and Plan Start: 04/26/19 11:04 Freq: Status: Active Protocol: Document 04/26/19 09:45 (Rec: 04/26/19 11:54 [email or web address]) Physical Therapy Assessment Rehab Potential Rehabilitation Potential Good Evaluation Complexity Number of Personal Factors/Comorbidities 3 or More Number of Body Systems Impaired 3 Clinical Presentation at Evaluation Stable Impairments Impairments Activity Tolerance Balance Functional Activities Functional Mobility Gait Pain Posture ROM Sensation Soft Tissue Mobility Strength Goals back pain Impairment constant achy pain at all times 3/10 Short Term Goal (STG) Pt will not experience increase in back pain more than 3/10 for 2 weeks to improve his quality of life STG Duration 6 weeks Embedded Developer Goal (LTG) Pt will not experience increase in back pain more than 1/10 for 2 weeks to improve his quality of life LTG Duration 12 weeks ROM Impairment lack of hip and lumbar spine ROM Short Term Goal (STG) Pt will improve his overall lumbar and hip AROM by 5 degrees to optimize his gait efficiency STG Duration 6 weeks Mcfp Goal (LTG) Pt will improve his overall lumbar and hip AROM by 10 degrees to optimize his gait efficiency LTG Duration 12 weeks HEP Impairment Pt does not have a HEP Embedded Developer Goal (LTG) Pt will comply to HEP independently with proper body mechanics LTG Duration 8 weeks Oswestry LBP questionnaire Impairment Pt scores 14 on Oswestry LBP questionnaire. Embedded Developer Goal (LTG) Pt will score <10 (1-19% impairment) to improve his overall functional strength and quality of life LTG Duration 12 weeks Assessment Summary Assessment Pt is a mod complexity with chronic LBP from many years ago. Upon assessment, pt presents poor posterior chain mobility which increase mechanical stress on lumbar spine stabilizers. There are significant mobility loss on B hip flexion and extension, along with decreased segmental mobility of lumbar spine. Pt' s B SLR only reaches to 60-70 degrees and 5 degrees of hip extension. During active supine marches and prone hip extension, there's noticeable excessive lumbar paraspinal engagement on L side but pain reduces with cues on abdominal / gluteal engagement. Pt also presents a L antalgic gait with insufficient trunk rotation and reciprocal armswings. Pt will benefit from skilled therapy to improve his overall hip mobility, lumbar segmental mobility, neuromuscular control during gait and functional activities and overall single leg balance, so pt will be able to have a better quality of life . Physical Therapy Plan Frequency and Duration Frequency of Treatment 2x/Week Duration of Treatment 12 Plan of Care Start Date 04/26/19 Plan of Care End Date 07/27/19 Therapeutic Interventions Therapeutic Interventions Balance Training Gait Training Home Exercise Program Joint Mobilizations Manual Therapy Neuromuscular Re-education Orthotic/Prosthetic Management Patient/Caregiver Education Self-Care/Home Management Soft Tissue Mobilization Taping Therapeutic Activities Therapeutic Exercises Modalities Cold Pack/Ice Massage Electric Stimulation Hot Packs Infrared Therapy Traction- Mechanical Ultrasound Next Visit Focus/Plan Next Note Type Treatment Note Next Visit Plan provide HEP with images hip ROM (SLR, hip extension) gentle lumbar ROM lumbar stability ex NM control hip AROM without compromising lumbar extensors.
--- NOTE | 2019-05-07 15:35 | PT.OTN ---
Current Diagnoses Spinal stenosis, lumbar region without neurogenic claudication (05/07/19) Radiculopathy, lumbar region (05/07/19) Physical Therapy Treatment Note PT-OP-A Visit Information Start: 04/26/19 11:04 Freq: Status: Active Protocol: Document 05/07/19 13:48 AR (Rec: 05/07/19 14:00 AR [email or web address]) Out-Patient Physical Therapy Visit Information Visit Information Visit Type Treatment Note Visit Start Time 10:30 Visit Stop Time 11:15 Total Visit Minutes 45 Visit Number 2 Number of SENIOR GAME DEVELOPER Visits 0 PT-OP-B Current Condition Start: 04/26/19 11:04 Freq: Status: Active Protocol: Document 04/26/19 09:45 HH (Rec: 04/26/19 11:17 HH [email or web address]) Current Condition History of Current Condition Onset Date many years ago Current Complaints Chronic LBP L>R, difficulty in walking History of Current Condition Pt presents to clinic with chronic LBP L>R. Pt c/o his back pain as constant achy/ burning pain mostly on L side. He was unable to explain triggers of his pain or any relieving moments, but tends to be worse in the morning. Pt has spinal stenosis and degenerative disc disease through MRI 04/02/19. Degenerative disc bulge and bilateral facet arthrosis is seen at L4-L5 with bilateral neural foramina narrowing. Pt had left laminectomy at L4-L5 and cervical laminectomy >10 years ago; B TKA >15 years. He explained his B front part of lower legs and top of his feet tend to feel numb since the surgery but he thinks it could be from his back pain as well. Pt also stated he is very still in general and wants to learn exercise properly. Prior Treatments and Tests Pt has spinal stenosis and degenerative disc disease through MRI 04/02/19. Degenerative disc bulge and bilateral facet arthrosis is seen at L4-L5 with bilateral neural foramina narrowing. Pt had left laminectomy at L4-L5 and cervical laminectomy >10 years ago; B TKA >15 years. Stent placement >10 years ago Treatment Goals Patient/Caregiver Goals 1. To be pain free during the day 2. to exercise regularly with proper body mechanics. Prior Functional Status Baseline Function- ADL's Independent Baseline Function- Mobility Independent Current Functional Impairments (Reported) Functional Limitations- ADL's increase in pain during bending over to machine operator hop picker objects. Functional Limitations- Mobility/Gait Increase in back pain with increase in activity level ( walk >2 miles, hill climbing ) Personal Factors Other Personal Factors That May Effect depression Therapy/Recovery possible dementia memory loss stent placement PT-OP-C Subjective Start: 04/26/19 11:04 Freq: Status: Active Protocol: Document 05/07/19 13:48 AR (Rec: 05/07/19 14:00 AR [email or web address]) OP-PT Subjective Patient Comments Patient Comments Pt reports his body feels stiff and he has cramping often. He has an elliptical at home and usually uses it for about 10 minutes before doing upper body strengthening. Pt was very interested in finding exercises that were good to do at home and learning about proper form. PT-OP-D Balance Start: 04/26/19 11:04 Freq: Status: Active Protocol: Document 04/26/19 09:45 HH (Rec: 04/26/19 11:54 HH [email or web address]) Balance Tests Single Limb Standing Single Limb- Right 10 Single Limb- Left 5 PT-OP-F Manual Assessment Start: 04/26/19 11:04 Freq: Status: Active Protocol: Document 04/26/19 09:45 HH (Rec: 04/26/19 11:54 HH [email or web address]) Manual Assessments Soft Tissue Assessment Soft Tissue Mobility Assessment significant tenderness to pressure on L lumbar paraspinals Joint Mobility Assessment Joint Mobility Assessment decreased PA mobility at L1-L5 PT-OP-G Mobility & Gait Start: 04/26/19 11:04 Freq: Status: Active Protocol: Document 04/26/19 09:45 HH (Rec: 04/26/19 11:55 HH [email or web address]) OP Gait Assessment Gait Deviations General Gait Pattern Antalgic Decreased Stride Length Decreased Feet Clearance Comments Gait Comments L antalgic gait. Decreased heel strike on L PT-OP-H Neuro Start: 04/26/19 11:04 Freq: Status: Active Protocol: Document 04/26/19 09:45 HH (Rec: 04/26/19 11:54 HH [email or web address]) Sensation Evaluation Gross Sensation Gross Sensation Left LE Impaired Right LE Impaired Sensation Description Numbness Dermatome Impairments L4 L5 Deep Tendon Reflex & Clonus Assessment Deep Tendon Reflex Bilateral Achilles Deep Tendon Reflex 2+ Normal Bilateral Patellar Deep Tendon Reflex 2+ Normal PT-OP-K Range of Motion Start: 04/26/19 11:04 Freq: Status: Active Protocol: Document 04/26/19 09:45 HH (Rec: 04/26/19 11:54 HH [email or web address]) Lumbar Spine Range of Motion Lumbar Spine Active Percentage Testing Position Standing Flexion 20 Extension 10 Lateral Flexion Left 25 Lateral Flexion Right 25 ROM Limitations Soft Tissue Tightness Hip Goniometric Range of Motion Hip Right Active Testing Position Supine Flexion w/Knee Flexed 90 Straight Leg Raise 60 Extension 5 Left Active Testing Position Supine Flexion w/Knee Flexed 95 Straight Leg Raise 70 Extension 5 PT-OP-L Special Tests Start: 04/26/19 11:04 Freq: Status: Active Protocol: Document 04/26/19 09:45 HH (Rec: 04/26/19 11:54 HH [email or web address]) Special Tests Lumbar Spine Special Tests hip extension Test Results +VE L lumbar region Comments pain reproduced during active R hip extension A-P Shearing Test Results +VE Comments L1--L4 Mono Test Results +VE B Straight Leg Raise Test Results +VE B Comments R= 60 degrees ; L= 70 degrees PT-OP-M Strength Start: 04/26/19 11:04 Freq: Status: Active Protocol: Document 04/26/19 09:45 HH (Rec: 04/26/19 11:54 HH [email or web address]) Hip Strength Hip Manual Muscle Testing Right Flexion (L2) 4+ Good+ Extension (S1) 4- Good- Abduction 4- Good- Adduction 4- Good- Left Flexion (L2) 4+ Good+ Extension (S1) 4- Good- Abduction 4- Good- Adduction 4- Good- PT-OP-Q Treatments Start: 04/26/19 11:04 Freq: Status: Active Protocol: Document 05/07/19 13:48 AR (Rec: 05/07/19 14:00 AR [email or web address]) Cardio Equipment Elliptical Duration (Minutes) 5 Resistance 4 Therapeutic Exercises Supine Exercises SLR Supine Exercise Name SLR Side bilateral Reps/Minutes 2x10 reps Comments cramping in lateral thigh getting into position. added to HEP TA activation Supine Exercise Name TA activation Reps/Minutes 2x30 sec holds Comments taught before SLR to prevent LBP SKTC Supine Exercise Name SKTC Side bilateral Reps/Minutes 2x45 sec hold Comments added to HEP 1 Supine Exercise Name knee rockers (L/S rotation) Side bilateral Reps/Minutes 30 reps Comments added to HEP Standing Exercises 4 Standing Exercise Name squats Side bilateral Resistance none Equipment Used chair (behind pt) Reps/Minutes 2x20 reps Comments cued for hip hinge 3 Standing Exercise Name hip hinge Reps/Minutes 20 reps Comments ruler in back used for cueing. pt had difficulty isolating hip flexion 2 Standing Exercise Name hip extension Side bilateral Equipment Used counter top Reps/Minutes 15 reps each side PT-OP-T Assessment and Plan Start: 04/26/19 11:04 Freq: Status: Active Protocol: Document 05/07/19 13:48 AR (Rec: 05/07/19 14:00 AR [email or web address]) Physical Therapy Assessment Goals back pain Impairment constant achy pain at all times 3/10 Short Term Goal (STG) Pt will not experience increase in back pain more than 3/10 for 2 weeks to improve his quality of life STG Duration 6 weeks Assistant Customer Service Manager Goal (LTG) Pt will not experience increase in back pain more than 1/10 for 2 weeks to improve his quality of life LTG Duration 12 weeks ROM Impairment lack of hip and lumbar spine ROM Short Term Goal (STG) Pt will improve his overall lumbar and hip AROM by 5 degrees to optimize his gait efficiency STG Duration 6 weeks Assistant Customer Service Manager Goal (LTG) Pt will improve his overall lumbar and hip AROM by 10 degrees to optimize his gait efficiency LTG Duration 12 weeks HEP Impairment Pt does not have a HEP Assistant Customer Service Manager Goal (LTG) Pt will comply to HEP independently with proper body mechanics LTG Duration 8 weeks Oswestry LBP questionnaire Impairment Pt scores 14 on Oswestry LBP questionnaire. [facility] Goal (LTG) Pt will score <10 (1-19% impairment) to improve his overall functional strength and quality of life LTG Duration 12 weeks Assessment Summary Assessment Pt had difficulty with hip and lumbar dissociation and required heavy cueing for proper squatting form. Pt was taught TA activation prior to SLR and this helped dec cramping and pulling sensation in L/S. Treatment focused on proper form of basic mobility, core and LE strengtheing exercises. Physical Therapy Plan Frequency and Duration Frequency of Treatment 2x/Week Duration of Treatment 12 Plan of Care Start Date 04/26/19 Plan of Care End Date 07/27/19 Next Visit Focus/Plan Next Note Type Treatment Note Next Visit Plan add more exercises to HEP as appropriate. add seated lumbar flexion stretch and supine HS stretch. progress TA activation. continue to address hip hinge and squat form before adding to HEP Pt was treated on direct supervision of this PT and I am in agreement with all treatment performed.
--- NOTE | 2019-05-09 11:43 | PT.OTN ---
Current Diagnoses Spinal stenosis, lumbar region without neurogenic claudication (05/09/19) Radiculopathy, lumbar region (05/09/19) Physical Therapy Treatment Note PT-OP-A Visit Information Start: 04/26/19 11:04 Freq: Status: Active Protocol: Document 05/09/19 11:21 AW (Rec: 05/09/19 11:43 AW [email or web address]) Out-Patient Physical Therapy Visit Information Visit Information Visit Type Treatment Note Visit Start Time 10:29 Visit Stop Time 11:18 Total Visit Minutes 49 Visit Number 3 Number of FORKLIFT DRIVER Visits 0 PT-OP-B Current Condition Start: 04/26/19 11:04 Freq: Status: Active Protocol: Document 04/26/19 09:45 HH (Rec: 04/26/19 11:17 HH [email or web address]) Current Condition History of Current Condition Onset Date many years ago Current Complaints Chronic LBP L>R, difficulty in walking History of Current Condition Pt presents to clinic with chronic LBP L>R. Pt c/o his back pain as constant achy/ burning pain mostly on L side. He was unable to explain triggers of his pain or any relieving moments, but tends to be worse in the morning. Pt has spinal stenosis and degenerative disc disease through MRI 04/02/19. Degenerative disc bulge and bilateral facet arthrosis is seen at L4-L5 with bilateral neural foramina narrowing. Pt had left laminectomy at L4-L5 and cervical laminectomy >10 years ago; B TKA >15 years. He explained his B front part of lower legs and top of his feet tend to feel numb since the surgery but he thinks it could be from his back pain as well. Pt also stated he is very still in general and wants to learn exercise properly. Prior Treatments and Tests Pt has spinal stenosis and degenerative disc disease through MRI 04/02/19. Degenerative disc bulge and bilateral facet arthrosis is seen at L4-L5 with bilateral neural foramina narrowing. Pt had left laminectomy at L4-L5 and cervical laminectomy >10 years ago; B TKA >15 years. Stent placement >10 years ago Treatment Goals Patient/Caregiver Goals 1. To be pain free during the day 2. to exercise regularly with proper body mechanics. 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 Functional Limitations- Mobility/Gait Increase in back pain with increase in activity level ( walk >2 miles, hill climbing ) Personal Factors Other Personal Factors That May Effect depression Therapy/Recovery possible dementia memory loss stent placement PT-OP-C Subjective Start: 04/26/19 11:04 Freq: Status: Active Protocol: Document 05/09/19 11:21 AW (Rec: 05/09/19 11:43 AW [email or web address]) OP-PT Subjective Patient Comments Patient Comments Pt reports tightness in anterior thighs. He has been doing his HEP and feels better afterward. PT-OP-D Balance Start: 04/26/19 11:04 Freq: Status: Active Protocol: Document 04/26/19 09:45 HH (Rec: 04/26/19 11:54 HH [email or web address]) Balance Tests Single Limb Standing Single Limb- Right 10 Single Limb- Left 5 PT-OP-F Manual Assessment Start: 04/26/19 11:04 Freq: Status: Active Protocol: Document 04/26/19 09:45 HH (Rec: 04/26/19 11:54 HH [email or web address]) Manual Assessments Soft Tissue Assessment Soft Tissue Mobility Assessment significant tenderness to pressure on L lumbar paraspinals Joint Mobility Assessment Joint Mobility Assessment decreased PA mobility at L1-L5 PT-OP-G Mobility & Gait Start: 04/26/19 11:04 Freq: Status: Active Protocol: Document 04/26/19 09:45 HH (Rec: 04/26/19 11:55 HH [email or web address]) OP Gait Assessment Gait Deviations General Gait Pattern Antalgic,Decreased Stride Length,Decreased Feet Clearance Comments Gait Comments L antalgic gait. Decreased heel strike on L PT-OP-H Neuro Start: 04/26/19 11:04 Freq: Status: Active Protocol: Document 04/26/19 09:45 HH (Rec: 04/26/19 11:54 HH [email or web address]) Sensation Evaluation Gross Sensation Gross Sensation Left LE Impaired,Right LE Impaired Sensation Description Numbness Dermatome Impairments L4,L5 Deep Tendon Reflex & Clonus Assessment Deep Tendon Reflex Bilateral Achilles Deep Tendon Reflex 2+ Normal Bilateral Patellar Deep Tendon Reflex 2+ Normal PT-OP-K Range of Motion Start: 04/26/19 11:04 Freq: Status: Active Protocol: Document 04/26/19 09:45 HH (Rec: 04/26/19 11:54 HH [email or web address]) Lumbar Spine Range of Motion Lumbar Spine Active Percentage Testing Position Standing Flexion 20 Extension 10 Lateral Flexion Left 25 Lateral Flexion Right 25 ROM Limitations Soft Tissue Tightness Hip Goniometric Range of Motion Hip Right Active Testing Position Supine Flexion w/Knee Flexed 90 Straight Leg Raise 60 Extension 5 Left Active Testing Position Supine Flexion w/Knee Flexed 95 Straight Leg Raise 70 Extension 5 PT-OP-L Special Tests Start: 04/26/19 11:04 Freq: Status: Active Protocol: Document 04/26/19 09:45 HH (Rec: 04/26/19 11:54 [email or web address]) Special Tests Lumbar Spine Special Tests hip extension Test Results +VE L lumbar region Comments pain reproduced during active R hip extension A-P Shearing Test Results +VE Comments L1--L4 Mono Test Results +VE B Straight Leg Raise Test Results +VE B Comments R= 60 degrees ; L= 70 degrees PT-OP-M Strength Start: 04/26/19 11:04 Freq: Status: Active Protocol: Document 04/26/19 09:45 HH (Rec: 04/26/19 11:54 [email or web address]) Hip Strength Hip Manual Muscle Testing Right Flexion (L2) 4+ Good+ Extension (S1) 4- Good- Abduction 4- Good- Adduction 4- Good- Left Flexion (L2) 4+ Good+ Extension (S1) 4- Good- Abduction 4- Good- Adduction 4- Good- PT-OP-Q Treatments Start: 04/26/19 11:04 Freq: Status: Active Protocol: Document 05/09/19 11:21 AW (Rec: 05/09/19 11:43 AW [email or web address]) Cardio Equipment Elliptical Duration (Minutes) 5 Resistance 4 Therapeutic Exercises Supine Exercises TA activation with single leg march Supine Exercise Name TA activation with single leg march Side bilateral Reps/Minutes 2x20 reps Comments pt required frequent cues for sequencing SLR Supine Exercise Name SLR Side bilateral Reps/Minutes 2x10 reps Comments better tolerated today with increased TA activation TA activation Supine Exercise Name TA activation Reps/Minutes 2x30 sec holds Comments pt able to maintain contraction SKTC Supine Exercise Name SKTC with contralateral LE dropped off table Side bilateral Reps/Minutes 2x45 sec hold Comments added Mono test position to address quad tightness 1 Supine Exercise Name knee rockers (L/S rotation) Side bilateral Reps/Minutes 30 reps Comments limited range, but it feels good Prone Exercises quadruped cat camel Prone Exercise Name quadruped cat camel Reps/Minutes 2x20 reps Comments verbal cues for chin tuck with flexion quad stretch Prone Exercise Name quad stretch Side bilateral Resistance manual Reps/Minutes 4x30 sec bilat Standing Exercises 5 Standing Exercise Name kneeling hip extension Side bilateral Reps/Minutes 2x10 reps Comments frequent verbal cues for form 3 Standing Exercise Name hip hinge Reps/Minutes 20 reps Comments used wall as tactile cue to push hips back. pt continues to have difficulty PT-OP-T Assessment and Plan Start: 04/26/19 11:04 Freq: Status: Active Protocol: Document 05/09/19 11:21 AW (Rec: 05/09/19 11:43 AW [email or web address]) Physical Therapy Assessment Goals back pain Impairment constant achy pain at all times 3/10 Short Term Goal (STG) Pt will not experience increase in back pain more than 3/10 for 2 weeks to improve his quality of life STG Duration 6 weeks Lime Trimmer Goal (LTG) Pt will not experience increase in back pain more than 1/10 for 2 weeks to improve his quality of life LTG Duration 12 weeks ROM Impairment lack of hip and lumbar spine ROM Short Term Goal (STG) Pt will improve his overall lumbar and hip AROM by 5 degrees to optimize his gait efficiency STG Duration 6 weeks Lime Trimmer Goal (LTG) Pt will improve his overall lumbar and hip AROM by 10 degrees to optimize his gait efficiency LTG Duration 12 weeks HEP Impairment Pt does not have a HEP [facility] Goal (LTG) Pt will comply to HEP independently with proper body mechanics LTG Duration 8 weeks Oswestry LBP questionnaire Impairment Pt scores 14 on Oswestry LBP questionnaire. Lime Trimmer Goal (LTG) Pt will score <10 (1-19% impairment) to improve his overall functional strength and quality of life LTG Duration 12 weeks Assessment Summary Assessment Pt continues to have difficulty coordinating hip hinge movement even with with frequent cueing and demonstration. Pt reported no L/S pain with supine activities. He is motivated to participate and eager to advance his HEP. No changes to HEP at this time due to pt requiring cues and demonstration for proper technique. Physical Therapy Plan Frequency and Duration Frequency of Treatment 2x/Week Duration of Treatment 12 Plan of Care Start Date 04/26/19 Plan of Care End Date 07/27/19 Next Visit Focus/Plan Next Note Type Treatment Note Next Visit Plan add more exercises to HEP as appropriate. add seated lumbar flexion stretch and supine HS stretch. progress TA activation. continue to address hip hinge and squat form before adding to HEP
--- NOTE | 2019-05-21 15:48 | PT.OTN ---
Current Diagnoses Spinal stenosis, lumbar region without neurogenic claudication (05/21/19) Radiculopathy, lumbar region (05/21/19) Physical Therapy Treatment Note PT-OP-A Visit Information Start: 04/26/19 11:04 Freq: Status: Active Protocol: Document 05/21/19 13:02 AW (Rec: 05/21/19 15:48 AW [email or web address]) Out-Patient Physical Therapy Visit Information Visit Information Visit Type Treatment Note Visit Start Time 10:30 Visit Stop Time 11:15 Total Visit Minutes 45 Visit Number 4 Number of GLOST PLACER Visits 0 PT-OP-B Current Condition Start: 04/26/19 11:04 Freq: Status: Active Protocol: Document 04/26/19 09:45 HH (Rec: 04/26/19 11:17 HH [email or web address]) Current Condition History of Current Condition Onset Date many years ago Current Complaints Chronic LBP L>R, difficulty in walking History of Current Condition Pt presents to clinic with chronic LBP L>R. Pt c/o his back pain as constant achy/ burning pain mostly on L side. He was unable to explain triggers of his pain or any relieving moments, but tends to be worse in the morning. Pt has spinal stenosis and degenerative disc disease through MRI 04/02/19. Degenerative disc bulge and bilateral facet arthrosis is seen at L4-L5 with bilateral neural foramina narrowing. Pt had left laminectomy at L4-L5 and cervical laminectomy >10 years ago; B TKA >15 years. He explained his B front part of lower legs and top of his feet tend to feel numb since the surgery but he thinks it could be from his back pain as well. Pt also stated he is very still in general and wants to learn exercise properly. Prior Treatments and Tests Pt has spinal stenosis and degenerative disc disease through MRI 04/02/19. Degenerative disc bulge and bilateral facet arthrosis is seen at L4-L5 with bilateral neural foramina narrowing. Pt had left laminectomy at L4-L5 and cervical laminectomy >10 years ago; B TKA >15 years. Stent placement >10 years ago Treatment Goals Patient/Caregiver Goals 1. To be pain free during the day 2. to exercise regularly with proper body mechanics. Prior Functional Status Baseline Function- ADL's Independent Baseline Function- Mobility Independent Current Functional Impairments (Reported) Functional Limitations- ADL's increase in pain during bending over to pick remover objects. Functional Limitations- Mobility/Gait Increase in back pain with increase in activity level ( walk >2 miles, hill climbing ) Personal Factors Other Personal Factors That May Effect depression Therapy/Recovery possible dementia memory loss stent placement PT-OP-C Subjective Start: 04/26/19 11:04 Freq: Status: Active Protocol: Document 05/21/19 13:02 AW (Rec: 05/21/19 15:48 AW [email or web address]) OP-PT Subjective Patient Comments Patient Comments Pt states he feels stiff all over which he thinks is his primary limitation. He reports understanding and performing his HEP daily PT-OP-D Balance Start: 04/26/19 11:04 Freq: Status: Active Protocol: Document 04/26/19 09:45 HH (Rec: 04/26/19 11:54 HH [email or web address]) Balance Tests Single Limb Standing Single Limb- Right 10 Single Limb- Left 5 PT-OP-F Manual Assessment Start: 04/26/19 11:04 Freq: Status: Active Protocol: Document 04/26/19 09:45 HH (Rec: 04/26/19 11:54 HH [email or web address]) Manual Assessments Soft Tissue Assessment Soft Tissue Mobility Assessment significant tenderness to pressure on L lumbar paraspinals Joint Mobility Assessment Joint Mobility Assessment decreased PA mobility at L1-L5 PT-OP-G Mobility & Gait Start: 04/26/19 11:04 Freq: Status: Active Protocol: Document 04/26/19 09:45 HH (Rec: 04/26/19 11:55 HH [email or web address]) OP Gait Assessment Gait Deviations General Gait Pattern Antalgic,Decreased Stride Length,Decreased Feet Clearance Comments Gait Comments L antalgic gait. Decreased heel strike on L PT-OP-H Neuro Start: 04/26/19 11:04 Freq: Status: Active Protocol: Document 04/26/19 09:45 HH (Rec: 04/26/19 11:54 HH [email or web address]) Sensation Evaluation Gross Sensation Gross Sensation Left LE Impaired,Right LE Impaired Sensation Description Numbness Dermatome Impairments L4,L5 Deep Tendon Reflex & Clonus Assessment Deep Tendon Reflex Bilateral Achilles Deep Tendon Reflex 2+ Normal Bilateral Patellar Deep Tendon Reflex 2+ Normal PT-OP-K Range of Motion Start: 04/26/19 11:04 Freq: Status: Active Protocol: Document 04/26/19 09:45 HH (Rec: 04/26/19 11:54 [email or web address]) Lumbar Spine Range of Motion Lumbar Spine Active Percentage Testing Position Standing Flexion 20 Extension 10 Lateral Flexion Left 25 Lateral Flexion Right 25 ROM Limitations Soft Tissue Tightness Hip Goniometric Range of Motion Hip Right Active Testing Position Supine Flexion w/Knee Flexed 90 Straight Leg Raise 60 Extension 5 Left Active Testing Position Supine Flexion w/Knee Flexed 95 Straight Leg Raise 70 Extension 5 PT-OP-L Special Tests Start: 04/26/19 11:04 Freq: Status: Active Protocol: Document 04/26/19 09:45 HH (Rec: 04/26/19 11:54 [email or web address]) Special Tests Lumbar Spine Special Tests hip extension Test Results +VE L lumbar region Comments pain reproduced during active R hip extension A-P Shearing Test Results +VE Comments L1--L4 Mono Test Results +VE B Straight Leg Raise Test Results +VE B Comments R= 60 degrees ; L= 70 degrees PT-OP-M Strength Start: 04/26/19 11:04 Freq: Status: Active Protocol: Document 04/26/19 09:45 HH (Rec: 04/26/19 11:54 [email or web address]) Hip Strength Hip Manual Muscle Testing Right Flexion (L2) 4+ Good+ Extension (S1) 4- Good- Abduction 4- Good- Adduction 4- Good- Left Flexion (L2) 4+ Good+ Extension (S1) 4- Good- Abduction 4- Good- Adduction 4- Good- PT-OP-Q Treatments Start: 04/26/19 11:04 Freq: Status: Active Protocol: Document 05/21/19 13:02 AW (Rec: 05/21/19 15:48 AW [email or web address]) Cardio Equipment Elliptical Duration (Minutes) 5 Resistance 4 Therapeutic Exercises Supine Exercises TA activation with heel slides Supine Exercise Name TA activation with heel slides Side bilateral Reps/Minutes 4x10 Comments heel in contact with table first 2 sets. leg above table 2nd 2 sets TA activation with single leg march Supine Exercise Name TA activation with single leg march Side bilateral Reps/Minutes 2x15 reps Sitting Exercises seated lumbar flexion Sitting Exercise Name seated lumbar flexion Reps/Minutes 1x10 reps Comments segmental flexion from neutral sitting to fwd flexion Standing Exercises 5 Standing Exercise Name kneeling hip extension Side bilateral Reps/Minutes 2x10 reps Comments pt has difficulty getting into kneeling position fully upright 3 Standing Exercise Name hip hinge Reps/Minutes 2x15 reps Comments begin standing ~3 from wall; clementinael for tactile feedback on spine position PT-OP-T Assessment and Plan Start: 04/26/19 11:04 Freq: Status: Active Protocol: Document 05/21/19 13:02 AW (Rec: 05/21/19 15:48 AW [email or web address]) Physical Therapy Assessment Assessment Summary Assessment Pt has difficulty coordinating hip hinge, was more successful once moved closer to the wall with decreased excursion. Educated patient on TA anatomy and need to maintain core engagement with hip hinge and all activity. Physical Therapy Plan Frequency and Duration Frequency of Treatment 2x/Week Duration of Treatment 12 Plan of Care Start Date 04/26/19 Plan of Care End Date 07/27/19 Therapeutic Interventions Therapeutic Interventions Balance Training,Gait Training ,Home Exercise Program,Joint Mobilizations,Manual Therapy, Neuromuscular Re-education, Orthotic/Prosthetic Management ,Patient/Caregiver Education, Self-Care/Home Management,Soft Tissue Mobilization,Taping, Therapeutic Activities, Therapeutic Exercises Modalities Cold Pack/Ice Massage,Electric Stimulation,Hot Packs, Infrared Therapy,Traction- Mechanical,Ultrasound Next Visit Focus/Plan Next Note Type Treatment Note Next Visit Plan add more exercises to HEP as appropriate. add supine HS stretch. progress TA activation. continue to address hip hinge and squat form before adding to HEP
--- NOTE | 2019-05-23 11:40 | PT.OTN ---
Current Diagnoses Spinal stenosis, lumbar region without neurogenic claudication (05/23/19) Radiculopathy, lumbar region (05/23/19) Physical Therapy Treatment Note PT-OP-A Visit Information Start: 04/26/19 11:04 Freq: Status: Active Protocol: Document 05/23/19 11:22 AW (Rec: 05/23/19 11:40 AW [email or web address]) Out-Patient Physical Therapy Visit Information Visit Information Visit Type Treatment Note Visit Start Time 10:33 Visit Stop Time 11:15 Total Visit Minutes 42 Visit Number 5 Number of PEST CONTROL PILOT Visits 0 PT-OP-B Current Condition Start: 04/26/19 11:04 Freq: Status: Active Protocol: Document 04/26/19 09:45 HH (Rec: 04/26/19 11:17 HH [email or web address]) Current Condition History of Current Condition Onset Date many years ago Current Complaints Chronic LBP L>R, difficulty in walking History of Current Condition Pt presents to clinic with chronic LBP L>R. Pt c/o his back pain as constant achy/ burning pain mostly on L side. He was unable to explain triggers of his pain or any relieving moments, but tends to be worse in the morning. Pt has spinal stenosis and degenerative disc disease through MRI 04/02/19. Degenerative disc bulge and bilateral facet arthrosis is seen at L4-L5 with bilateral neural foramina narrowing. Pt had left laminectomy at L4-L5 and cervical laminectomy >10 years ago; B TKA >15 years. He explained his B front part of lower legs and top of his feet tend to feel numb since the surgery but he thinks it could be from his back pain as well. Pt also stated he is very still in general and wants to learn exercise properly. Prior Treatments and Tests Pt has spinal stenosis and degenerative disc disease through MRI 04/02/19. Degenerative disc bulge and bilateral facet arthrosis is seen at L4-L5 with bilateral neural foramina narrowing. Pt had left laminectomy at L4-L5 and cervical laminectomy >10 years ago; B TKA >15 years. Stent placement >10 years ago Treatment Goals Patient/Caregiver Goals 1. To be pain free during the day 2. to exercise regularly with proper body mechanics. Prior Functional Status Baseline Function- ADL's Independent Baseline Function- Mobility Independent Current Functional Impairments (Reported) Functional Limitations- ADL's increase in pain during bending over to olive picker objects. Functional Limitations- Mobility/Gait Increase in back pain with increase in activity level ( walk >2 miles, hill climbing ) Personal Factors Other Personal Factors That May Effect depression Therapy/Recovery possible dementia memory loss stent placement PT-OP-C Subjective Start: 04/26/19 11:04 Freq: Status: Active Protocol: Document 05/23/19 11:22 AW (Rec: 05/23/19 11:40 AW [email or web address]) OP-PT Subjective Patient Comments Patient Comments Pt feels more sore today. He has been doing elliptical at home and has added seated hamstring stretch to HEP. He is concerned that twice per week PT may be too much. PT-OP-D Balance Start: 04/26/19 11:04 Freq: Status: Active Protocol: Document 04/26/19 09:45 HH (Rec: 04/26/19 11:54 HH [email or web address]) Balance Tests Single Limb Standing Single Limb- Right 10 Single Limb- Left 5 PT-OP-F Manual Assessment Start: 04/26/19 11:04 Freq: Status: Active Protocol: Document 04/26/19 09:45 HH (Rec: 04/26/19 11:54 HH [email or web address]) Manual Assessments Soft Tissue Assessment Soft Tissue Mobility Assessment significant tenderness to pressure on L lumbar paraspinals Joint Mobility Assessment Joint Mobility Assessment decreased PA mobility at L1-L5 PT-OP-G Mobility & Gait Start: 04/26/19 11:04 Freq: Status: Active Protocol: Document 04/26/19 09:45 HH (Rec: 04/26/19 11:55 HH [email or web address]) OP Gait Assessment Gait Deviations General Gait Pattern Antalgic,Decreased Stride Length,Decreased Feet Clearance Comments Gait Comments L antalgic gait. Decreased heel strike on L PT-OP-H Neuro Start: 04/26/19 11:04 Freq: Status: Active Protocol: Document 04/26/19 09:45 HH (Rec: 04/26/19 11:54 HH [email or web address]) Sensation Evaluation Gross Sensation Gross Sensation Left LE Impaired,Right LE Impaired Sensation Description Numbness Dermatome Impairments L4,L5 Deep Tendon Reflex & Clonus Assessment Deep Tendon Reflex Bilateral Achilles Deep Tendon Reflex 2+ Normal Bilateral Patellar Deep Tendon Reflex 2+ Normal PT-OP-K Range of Motion Start: 04/26/19 11:04 Freq: Status: Active Protocol: Document 04/26/19 09:45 HH (Rec: 04/26/19 11:54 [email or web address]) Lumbar Spine Range of Motion Lumbar Spine Active Percentage Testing Position Standing Flexion 20 Extension 10 Lateral Flexion Left 25 Lateral Flexion Right 25 ROM Limitations Soft Tissue Tightness Hip Goniometric Range of Motion Hip Right Active Testing Position Supine Flexion w/Knee Flexed 90 Straight Leg Raise 60 Extension 5 Left Active Testing Position Supine Flexion w/Knee Flexed 95 Straight Leg Raise 70 Extension 5 PT-OP-L Special Tests Start: 04/26/19 11:04 Freq: Status: Active Protocol: Document 04/26/19 09:45 HH (Rec: 04/26/19 11:54 HH [email or web address]) Special Tests Lumbar Spine Special Tests hip extension Test Results +VE L lumbar region Comments pain reproduced during active R hip extension A-P Shearing Test Results +VE Comments L1--L4 Mono Test Results +VE B Straight Leg Raise Test Results +VE B Comments R= 60 degrees ; L= 70 degrees PT-OP-M Strength Start: 04/26/19 11:04 Freq: Status: Active Protocol: Document 04/26/19 09:45 HH (Rec: 04/26/19 11:54 [email or web address]) Hip Strength Hip Manual Muscle Testing Right Flexion (L2) 4+ Good+ Extension (S1) 4- Good- Abduction 4- Good- Adduction 4- Good- Left Flexion (L2) 4+ Good+ Extension (S1) 4- Good- Abduction 4- Good- Adduction 4- Good- PT-OP-Q Treatments Start: 04/26/19 11:04 Freq: Status: Active Protocol: Document 05/23/19 11:22 AW (Rec: 05/23/19 11:40 AW [email or web address]) Cardio Equipment Recumbent Elliptical (BiodKaldoora) Duration (Minutes) 6 Resistance 4 Seat Position 10 Therapeutic Exercises Supine Exercises hamstring stretch Supine Exercise Name hamstring stretch Side bilateral Resistance manual Reps/Minutes 30 second hold x 4 Comments contract relax Prone Exercises quadruped thread the needle Prone Exercise Name quadruped thread the needle Side bilateral Reps/Minutes 10 reps bilat Comments verbal cues for increased excursion quadruped cat camel Prone Exercise Name quadruped cat camel Reps/Minutes 2x10 reps Comments verbal cues to exaggerate movement Sitting Exercises seated lumbar flexion Sitting Exercise Name seated lumbar flexion Reps/Minutes 1x10 reps Comments improved segmental movement today Standing Exercises 5 Standing Exercise Name kneeling hip extension Side bilateral Reps/Minutes 2x10 reps Comments improved hip extension with neutral spine 3 Standing Exercise Name hip hinge/mini squat to table Equipment Used mat table at 24 Reps/Minutes 2x15 reps Comments hands on hips to avoid pushing off thighs Self-Care/Home Management Treatment Education Patient Education Home Exercise Program Other Education HEP: supine knee rockers SKTC SLR seated hamstring stretch PT-OP-T Assessment and Plan Start: 04/26/19 11:04 Freq: Status: Active Protocol: Document 05/23/19 11:22 AW (Rec: 05/23/19 11:40 AW [email or web address]) Physical Therapy Assessment Goals back pain Impairment constant achy pain at all times 3/10 Short Term Goal (STG) Pt will not experience increase in back pain more than 3/10 for 2 weeks to improve his quality of life STG Duration 6 weeks [facility] Goal (LTG) Pt will not experience increase in back pain more than 1/10 for 2 weeks to improve his quality of life LTG Duration 12 weeks ROM Impairment lack of hip and lumbar spine ROM Short Term Goal (STG) Pt will improve his overall lumbar and hip AROM by 5 degrees to optimize his gait efficiency STG Duration 6 weeks Loss Prevention Manager Goal (LTG) Pt will improve his overall lumbar and hip AROM by 10 degrees to optimize his gait efficiency LTG Duration 12 weeks HEP Impairment Pt does not have a HEP Loss Prevention Manager Goal (LTG) Pt will comply to HEP independently with proper body mechanics LTG Duration 8 weeks Oswestry LBP questionnaire Impairment Pt scores 14 on Oswestry LBP questionnaire. Loss Prevention Manager Goal (LTG) Pt will score <10 (1-19% impairment) to improve his overall functional strength and quality of life LTG Duration 12 weeks Five Impairment Dynamic Gait Index [facility] Goal (LTG) 24 on DGI to improve dynamic gait stability/safety with gait. LTG Duration 8 weeks Four Impairment SL balance Short Term Goal (STG) 8 sec bilaterally to decrease fall risk STG Duration 4 weeks [facility] Goal (LTG) 10 sec bilaterally to decrease fall risk LTG Duration 8 weeks Three Impairment Functional reach [facility] Goal (LTG) 10 inches or greater with functional reach prior to d/c to decrease fall risk. LTG Duration 8 weeks Two Impairment LE weakness Short Term Goal (STG) hip abduction, ER, ankle DF 4+ /5 with MMT to improve functional strength with mobility. STG Duration 4 weeks [facility] Goal (LTG) hip abduction, ER, ankle DF 5/ 5 with MMT to improve functional strength with mobility. LTG Duration 8 weeks One Impairment Recreational activities Short Term Goal (STG) Pt will be able to walk outdoors for 15 min without fatigue, 5 days per week STG Duration 4 weeks [facility] Goal (LTG) Pt will be able to walk outdoors for 30 min without fatigue, 5 days per week. LTG Duration 8 weeks Assessment Summary Assessment Movement is slow and guarded related to fear of pain/spasm. Improved performance in hip hinge today, both in kneeling and in standing (using 24 mat as target). Pt continues to experience global stiffness and also endorses mild cognitive decline. His movement is slow and guarded Physical Therapy Plan Frequency and Duration Frequency of Treatment 1-2x/week Duration of Treatment 12 Plan of Care Start Date 04/26/19 Plan of Care End Date 07/27/19 Therapeutic Interventions Therapeutic Interventions Balance Training,Gait Training ,Home Exercise Program,Joint Mobilizations,Manual Therapy, Neuromuscular Re-education, Orthotic/Prosthetic Management ,Patient/Caregiver Education, Self-Care/Home Management,Soft Tissue Mobilization,Taping, Therapeutic Activities, Therapeutic Exercises Modalities Cold Pack/Ice Massage,Electric Stimulation,Hot Packs, Infrared Therapy,Traction- Mechanical,Ultrasound Next Visit Focus/Plan Next Note Type Treatment Note Next Visit Plan Plan to reinforce hip hinge at next visit and possibly add to HEP. Review HEP and add exercises as appropriate in case pt decides to drop to weekly visits.
--- NOTE | 2019-05-30 11:35 | PT.OTN ---
Current Diagnoses Spinal stenosis, lumbar region without neurogenic claudication (05/30/19) Radiculopathy, lumbar region (05/30/19) Physical Therapy Treatment Note PT-OP-A Visit Information Start: 04/26/19 11:04 Freq: Status: Active Protocol: Document 05/30/19 11:13 AW (Rec: 05/30/19 11:34 AW [email or web address]) Out-Patient Physical Therapy Visit Information Visit Information Visit Type Treatment Note Visit Start Time 10:30 Visit Stop Time 11:12 Total Visit Minutes 42 Visit Number 6 Number of MACHINE FELLER Visits 0 PT-OP-B Current Condition Start: 04/26/19 11:04 Freq: Status: Active Protocol: Document 04/26/19 09:45 HH (Rec: 04/26/19 11:17 HH [email or web address]) Current Condition History of Current Condition Onset Date many years ago Current Complaints Chronic LBP L>R, difficulty in walking History of Current Condition Pt presents to clinic with chronic LBP L>R. Pt c/o his back pain as constant achy/ burning pain mostly on L side. He was unable to explain triggers of his pain or any relieving moments, but tends to be worse in the morning. Pt has spinal stenosis and degenerative disc disease through MRI 04/02/19. Degenerative disc bulge and bilateral facet arthrosis is seen at L4-L5 with bilateral neural foramina narrowing. Pt had left laminectomy at L4-L5 and cervical laminectomy >10 years ago; B TKA >15 years. He explained his B front part of lower legs and top of his feet tend to feel numb since the surgery but he thinks it could be from his back pain as well. Pt also stated he is very still in general and wants to learn exercise properly. Prior Treatments and Tests Pt has spinal stenosis and degenerative disc disease through MRI 04/02/19. Degenerative disc bulge and bilateral facet arthrosis is seen at L4-L5 with bilateral neural foramina narrowing. Pt had left laminectomy at L4-L5 and cervical laminectomy >10 years ago; B TKA >15 years. Stent placement >10 years ago Treatment Goals Patient/Caregiver Goals 1. To be pain free during the day 2. to exercise regularly with proper body mechanics. Prior Functional Status Baseline Function- ADL's Independent Baseline Function- Mobility Independent Current Functional Impairments (Reported) Functional Limitations- ADL's increase in pain during bending over to berry picker objects. Functional Limitations- Mobility/Gait Increase in back pain with increase in activity level ( walk >2 miles, hill climbing ) Personal Factors Other Personal Factors That May Effect depression Therapy/Recovery possible dementia memory loss stent placement PT-OP-C Subjective Start: 04/26/19 11:04 Freq: Status: Active Protocol: Document 05/30/19 11:13 AW (Rec: 05/30/19 11:34 AW [email or web address]) OP-PT Subjective Patient Comments Patient Comments Pt reports PT has helped a lot . He is feeling more confident in his movement and more comfortable with his HEP. PT-OP-D Balance Start: 04/26/19 11:04 Freq: Status: Active Protocol: Document 04/26/19 09:45 HH (Rec: 04/26/19 11:54 HH [email or web address]) Balance Tests Single Limb Standing Single Limb- Right 10 Single Limb- Left 5 PT-OP-F Manual Assessment Start: 04/26/19 11:04 Freq: Status: Active Protocol: Document 04/26/19 09:45 HH (Rec: 04/26/19 11:54 HH [email or web address]) Manual Assessments Soft Tissue Assessment Soft Tissue Mobility Assessment significant tenderness to pressure on L lumbar paraspinals Joint Mobility Assessment Joint Mobility Assessment decreased PA mobility at L1-L5 PT-OP-G Mobility & Gait Start: 04/26/19 11:04 Freq: Status: Active Protocol: Document 04/26/19 09:45 HH (Rec: 04/26/19 11:55 HH [email or web address]) OP Gait Assessment Gait Deviations General Gait Pattern Antalgic,Decreased Stride Length,Decreased Feet Clearance Comments Gait Comments L antalgic gait. Decreased heel strike on L PT-OP-H Neuro Start: 04/26/19 11:04 Freq: Status: Active Protocol: Document 04/26/19 09:45 HH (Rec: 04/26/19 11:54 HH [email or web address]) Sensation Evaluation Gross Sensation Gross Sensation Left LE Impaired,Right LE Impaired Sensation Description Numbness Dermatome Impairments L4,L5 Deep Tendon Reflex & Clonus Assessment Deep Tendon Reflex Bilateral Achilles Deep Tendon Reflex 2+ Normal Bilateral Patellar Deep Tendon Reflex 2+ Normal PT-OP-K Range of Motion Start: 04/26/19 11:04 Freq: Status: Active Protocol: Document 04/26/19 09:45 HH (Rec: 04/26/19 11:54 HH [email or web address]) Lumbar Spine Range of Motion Lumbar Spine Active Percentage Testing Position Standing Flexion 20 Extension 10 Lateral Flexion Left 25 Lateral Flexion Right 25 ROM Limitations Soft Tissue Tightness Hip Goniometric Range of Motion Hip Right Active Testing Position Supine Flexion w/Knee Flexed 90 Straight Leg Raise 60 Extension 5 Left Active Testing Position Supine Flexion w/Knee Flexed 95 Straight Leg Raise 70 Extension 5 PT-OP-L Special Tests Start: 04/26/19 11:04 Freq: Status: Active Protocol: Document 04/26/19 09:45 HH (Rec: 04/26/19 11:54 [email or web address]) Special Tests Lumbar Spine Special Tests hip extension Test Results +VE L lumbar region Comments pain reproduced during active R hip extension A-P Shearing Test Results +VE Comments L1--L4 Mono Test Results +VE B Straight Leg Raise Test Results +VE B Comments R= 60 degrees ; L= 70 degrees PT-OP-M Strength Start: 04/26/19 11:04 Freq: Status: Active Protocol: Document 04/26/19 09:45 HH (Rec: 04/26/19 11:54 [email or web address]) Hip Strength Hip Manual Muscle Testing Right Flexion (L2) 4+ Good+ Extension (S1) 4- Good- Abduction 4- Good- Adduction 4- Good- Left Flexion (L2) 4+ Good+ Extension (S1) 4- Good- Abduction 4- Good- Adduction 4- Good- PT-OP-Q Treatments Start: 04/26/19 11:04 Freq: Status: Active Protocol: Document 05/30/19 11:13 AW (Rec: 05/30/19 11:34 AW [email or web address]) Cardio Equipment Recumbent Elliptical (BiodDrybar) Duration (Minutes) 6 Resistance 5 Seat Position 10 Therapeutic Exercises Supine Exercises hamstring stretch Supine Exercise Name hamstring stretch Side bilateral Resistance manual Reps/Minutes 30 second hold x 4 Comments contract relax 1 Supine Exercise Name hip flexor stretch Side bilateral Reps/Minutes 1 min hold x 2 Comments mono test position Prone Exercises child pose Prone Exercise Name child pose Side bilateral Reps/Minutes 1 minute hold x 2 Comments improved hip mobility; able to sink hips further today quadruped thread the needle Prone Exercise Name quadruped thread the needle Side bilateral Reps/Minutes 5 reps bilat Comments pt reported wrist discomfort, even with support on fists; discontinued quadruped cat camel Prone Exercise Name quadruped cat camel Reps/Minutes 20 reps Comments verbal cues to exaggerate movement Standing Exercises 3 Standing Exercise Name hip hinge/mini squat to table Equipment Used mat table at 24 1st set; 20 2nd set Reps/Minutes 2x10 reps Comments hands on hips to avoid pushing off thighs 2 Standing Exercise Name squat Equipment Used // bar for support as needed Reps/Minutes 2x10 reps Comments cues for hip hinge, good neutral spine Self-Care/Home Management Treatment Education Patient Education Home Exercise Program Other Education HEP: supine knee rockers SKTC SLR seated hamstring stretch PT-OP-T Assessment and Plan Start: 04/26/19 11:04 Freq: Status: Active Protocol: Document 05/30/19 11:13 AW (Rec: 05/30/19 11:34 AW [email or web address]) Physical Therapy Assessment Goals back pain Impairment constant achy pain at all times 3/10 Short Term Goal (STG) Pt will not experience increase in back pain more than 3/10 for 2 weeks to improve his quality of life STG Duration 6 weeks Senior Care Goal (LTG) Pt will not experience increase in back pain more than 1/10 for 2 weeks to improve his quality of life LTG Duration 12 weeks Assessment Summary Assessment Improved hip hinge today, with pt able to maintain good mechanics with 20 mat table as target. Pt has changed schedule to 1x/week which is appropriate for progress and goals. Physical Therapy Plan Frequency and Duration Frequency of Treatment 1-2x/week Duration of Treatment 12 Plan of Care Start Date 04/26/19 Plan of Care End Date 07/27/19 Therapeutic Interventions Therapeutic Interventions Balance Training,Gait Training ,Home Exercise Program,Joint Mobilizations,Manual Therapy, Neuromuscular Re-education, Orthotic/Prosthetic Management ,Patient/Caregiver Education, Self-Care/Home Management,Soft Tissue Mobilization,Taping, Therapeutic Activities, Therapeutic Exercises Modalities Cold Pack/Ice Massage,Electric Stimulation,Hot Packs, Infrared Therapy,Traction- Mechanical,Ultrasound Next Visit Focus/Plan Next Note Type Treatment Note Next Visit Plan Review HEP and add as appropriate for increased independence. Plan to add single-leg balance to in- clinic treatment.
--- NOTE | 2019-06-08 11:19 | PT.OTN ---
Current Diagnoses Spinal stenosis, lumbar region without neurogenic claudication (06/08/19) Radiculopathy, lumbar region (06/08/19) Physical Therapy Treatment Note PT-OP-A Visit Information Start: 04/26/19 11:04 Freq: Status: Active Protocol: Document 06/08/19 10:30 DCW (Rec: 06/08/19 11:18 DCW [id number]) Out-Patient Physical Therapy Visit Information Visit Information Visit Type Treatment Note Visit Start Time 10:30 Visit Stop Time 11:15 Total Visit Minutes 45 Visit Number 7 Number of PATIENT PORTAL REPRESENTATIVE Visits 0 PT-OP-B Current Condition Start: 04/26/19 11:04 Freq: Status: Active Protocol: Document 04/26/19 09:45 HH (Rec: 04/26/19 11:17 HH [email or web address]) Current Condition History of Current Condition Onset Date many years ago Current Complaints Chronic LBP L>R, difficulty in walking History of Current Condition Pt presents to clinic with chronic LBP L>R. Pt c/o his back pain as constant achy/ burning pain mostly on L side. He was unable to explain triggers of his pain or any relieving moments, but tends to be worse in the morning. Pt has spinal stenosis and degenerative disc disease through MRI 04/02/19. Degenerative disc bulge and bilateral facet arthrosis is seen at L4-L5 with bilateral neural foramina narrowing. Pt had left laminectomy at L4-L5 and cervical laminectomy >10 years ago; B TKA >15 years. He explained his B front part of lower legs and top of his feet tend to feel numb since the surgery but he thinks it could be from his back pain as well. Pt also stated he is very still in general and wants to learn exercise properly. Prior Treatments and Tests Pt has spinal stenosis and degenerative disc disease through MRI 04/02/19. Degenerative disc bulge and bilateral facet arthrosis is seen at L4-L5 with bilateral neural foramina narrowing. Pt had left laminectomy at L4-L5 and cervical laminectomy >10 years ago; B TKA >15 years. Stent placement >10 years ago Treatment Goals Patient/Caregiver Goals 1. To be pain free during the day 2. to exercise regularly with proper body mechanics. Prior Functional Status Baseline Function- ADL's Independent Baseline Function- Mobility Independent Current Functional Impairments (Reported) Functional Limitations- ADL's increase in pain during bending over to continuous pickling line pickler objects. Functional Limitations- Mobility/Gait Increase in back pain with increase in activity level ( walk >2 miles, hill climbing ) Personal Factors Other Personal Factors That May Effect depression Therapy/Recovery possible dementia memory loss stent placement PT-OP-C Subjective Start: 04/26/19 11:04 Freq: Status: Active Protocol: Document 06/08/19 10:30 DCW (Rec: 06/08/19 11:18 DCW [id number]) OP-PT Subjective Patient Comments Patient Comments Pt feeling better, but I do think that after my appointment last week, my quads were on fire all week, and I couldn't figure out why. PT-OP-D Balance Start: 04/26/19 11:04 Freq: Status: Active Protocol: Document 04/26/19 09:45 HH (Rec: 04/26/19 11:54 HH [email or web address]) Balance Tests Single Limb Standing Single Limb- Right 10 Single Limb- Left 5 PT-OP-F Manual Assessment Start: 04/26/19 11:04 Freq: Status: Active Protocol: Document 04/26/19 09:45 HH (Rec: 04/26/19 11:54 HH [email or web address]) Manual Assessments Soft Tissue Assessment Soft Tissue Mobility Assessment significant tenderness to pressure on L lumbar paraspinals Joint Mobility Assessment Joint Mobility Assessment decreased PA mobility at L1-L5 PT-OP-G Mobility & Gait Start: 04/26/19 11:04 Freq: Status: Active Protocol: Document 04/26/19 09:45 HH (Rec: 04/26/19 11:55 HH [email or web address]) OP Gait Assessment Gait Deviations General Gait Pattern Antalgic,Decreased Stride Length,Decreased Feet Clearance Comments Gait Comments L antalgic gait. Decreased heel strike on L PT-OP-H Neuro Start: 04/26/19 11:04 Freq: Status: Active Protocol: Document 04/26/19 09:45 HH (Rec: 04/26/19 11:54 HH [email or web address]) Sensation Evaluation Gross Sensation Gross Sensation Left LE Impaired,Right LE Impaired Sensation Description Numbness Dermatome Impairments L4,L5 Deep Tendon Reflex & Clonus Assessment Deep Tendon Reflex Bilateral Achilles Deep Tendon Reflex 2+ Normal Bilateral Patellar Deep Tendon Reflex 2+ Normal PT-OP-K Range of Motion Start: 04/26/19 11:04 Freq: Status: Active Protocol: Document 04/26/19 09:45 HH (Rec: 04/26/19 11:54 [email or web address]) Lumbar Spine Range of Motion Lumbar Spine Active Percentage Testing Position Standing Flexion 20 Extension 10 Lateral Flexion Left 25 Lateral Flexion Right 25 ROM Limitations Soft Tissue Tightness Hip Goniometric Range of Motion Hip Right Active Testing Position Supine Flexion w/Knee Flexed 90 Straight Leg Raise 60 Extension 5 Left Active Testing Position Supine Flexion w/Knee Flexed 95 Straight Leg Raise 70 Extension 5 PT-OP-L Special Tests Start: 04/26/19 11:04 Freq: Status: Active Protocol: Document 04/26/19 09:45 HH (Rec: 04/26/19 11:54 HH [email or web address]) Special Tests Lumbar Spine Special Tests hip extension Test Results +VE L lumbar region Comments pain reproduced during active R hip extension A-P Shearing Test Results +VE Comments L1--L4 Mono Test Results +VE B Straight Leg Raise Test Results +VE B Comments R= 60 degrees ; L= 70 degrees PT-OP-M Strength Start: 04/26/19 11:04 Freq: Status: Active Protocol: Document 04/26/19 09:45 HH (Rec: 04/26/19 11:54 [email or web address]) Hip Strength Hip Manual Muscle Testing Right Flexion (L2) 4+ Good+ Extension (S1) 4- Good- Abduction 4- Good- Adduction 4- Good- Left Flexion (L2) 4+ Good+ Extension (S1) 4- Good- Abduction 4- Good- Adduction 4- Good- PT-OP-Q Treatments Start: 04/26/19 11:04 Freq: Status: Active Protocol: Document 06/08/19 10:30 DCW (Rec: 06/08/19 11:18 DCW [id number]) Cardio Equipment Elliptical Duration (Minutes) 5 Resistance 4 Gym Equipment Therapeutic Ball Bridging Exercise Details Bridging /c feet on ball Ball Size/Color Red - 55 cm Body Position Supine Supine Trunk Rotation Exercise Details Supine low trunk rotation Ball Size/Color Red - 55 cm Body Position Supine Trunk Rotation Exercise Details Seated trunk rotation vs resistance Ball Size/Color Green - 65 cm Lv 3 T-band Body Position Sitting Therapeutic Exercises Supine Exercises hamstring stretch Supine Exercise Name hamstring stretch Side bilateral Resistance manual Reps/Minutes 30 second hold x 4 Comments contract relax TA activation with single leg march Supine Exercise Name TA activation with single leg march Side bilateral Reps/Minutes 2x15 reps Prone Exercises child pose Prone Exercise Name child pose Side bilateral Reps/Minutes 1 minute hold x 2 Comments improved hip mobility; able to sink hips further today quadruped thread the needle Prone Exercise Name quadruped thread the needle Side bilateral Reps/Minutes 5 reps bilat Comments pt reported wrist discomfort, even with support on fists; discontinued quadruped cat camel Prone Exercise Name quadruped cat camel Reps/Minutes 20 reps Comments verbal cues to exaggerate movement Other Exercises 1 Other Exercise Name Resisted side-stepping Resistance Green Equipment Used T-band Comments Side-stepping, Fwd, Bkwd PT-OP-T Assessment and Plan Start: 04/26/19 11:04 Freq: Status: Active Protocol: Document 06/08/19 10:30 DCW (Rec: 06/08/19 11:18 DCW [id number]) Physical Therapy Assessment Goals back pain Impairment constant achy pain at all times 3/10 Short Term Goal (STG) Pt will not experience increase in back pain more than 3/10 for 2 weeks to improve his quality of life STG Duration 6 weeks [facility] Goal (LTG) Pt will not experience increase in back pain more than 1/10 for 2 weeks to improve his quality of life LTG Duration 12 weeks ROM Impairment lack of hip and lumbar spine ROM Short Term Goal (STG) Pt will improve his overall lumbar and hip AROM by 5 degrees to optimize his gait efficiency STG Duration 6 weeks [facility] Goal (LTG) Pt will improve his overall lumbar and hip AROM by 10 degrees to optimize his gait efficiency LTG Duration 12 weeks HEP Impairment Pt does not have a HEP [facility]eeper Goal (LTG) Pt will comply to HEP independently with proper body mechanics LTG Duration 8 weeks Oswestry LBP questionnaire Impairment Pt scores 14 on Oswestry LBP questionnaire. [facility] Goal (LTG) Pt will score <10 (1-19% impairment) to improve his overall functional strength and quality of life LTG Duration 12 weeks Five Impairment Dynamic Gait Index [facility]eeper Goal (LTG) 24 on DGI to improve dynamic gait stability/safety with gait. LTG Duration 8 weeks Four Impairment SL balance Short Term Goal (STG) 8 sec bilaterally to decrease fall risk STG Duration 4 weeks [facility] Goal (LTG) 10 sec bilaterally to decrease fall risk LTG Duration 8 weeks Three Impairment Functional reach [facility] Goal (LTG) 10 inches or greater with functional reach prior to d/c to decrease fall risk. LTG Duration 8 weeks Two Impairment LE weakness Short Term Goal (STG) hip abduction, ER, ankle DF 4+ /5 with MMT to improve functional strength with mobility. STG Duration 4 weeks [facility] Goal (LTG) hip abduction, ER, ankle DF 5/ 5 with MMT to improve functional strength with mobility. LTG Duration 8 weeks One Impairment Recreational activities Short Term Goal (STG) Pt will be able to walk outdoors for 15 min without fatigue, 5 days per week STG Duration 4 weeks [facility] Goal (LTG) Pt will be able to walk outdoors for 30 min without fatigue, 5 days per week. LTG Duration 8 weeks Assessment Summary Assessment Pt tolerated treatment very well today, enjoyed the new exercises, plans to add them to his HEP Physical Therapy Plan Frequency and Duration Frequency of Treatment 1-2x/week Duration of Treatment 12 Plan of Care Start Date 04/26/19 Plan of Care End Date 07/27/19 Therapeutic Interventions Therapeutic Interventions Balance Training,Gait Training ,Home Exercise Program,Joint Mobilizations,Manual Therapy, Neuromuscular Re-education, Orthotic/Prosthetic Management ,Patient/Caregiver Education, Self-Care/Home Management,Soft Tissue Mobilization,Taping, Therapeutic Activities, Therapeutic Exercises Modalities Cold Pack/Ice Massage,Electric Stimulation,Hot Packs, Infrared Therapy,Traction- Mechanical,Ultrasound Next Visit Focus/Plan Next Note Type Treatment Note Next Visit Plan Review HEP and add as appropriate for increased independence. Plan to add single-leg balance to in- clinic treatment.
== END 2019-06-09 12:42 ==
LOC: PHYS 10:30
PROVIDERS: PCP Physician Assistant; Visit Provider Physician Assistant
DX: M48.061 Spinal stenosis, lumbar region without neurogenic claudication (principal); M54.16 Radiculopathy, lumbar region
CPT/HCPCS: 97110; 97162

== ENCOUNTER → 2019-06-19 09:28 | Outpatient (CLI) | payer OTHER, SELFPAY ==
[2018-01-21 22:07] VITALS: BMI 30.4
[2019-06-19 10:49] LABS: Add Manual Diff / Slide Review NO; Basophils Absolute Auto 0 /uL (0-100); Basophils Percent Auto 0.5 % (0-2); Eosinophils Absolute Auto 200 /uL (0-450); Hematocrit 42.8 % (41-53); Hemoglobin 14.6 g/dL (13.5-17.5); Lymphocytes Absolute Auto 1200 /uL (1100-4500); Lymphocytes Percent Auto 16.2 % (25-40); Mean Corpuscular HGB Conc 34.2 % (30-36); Mean Corpuscular Hemoglobin 31.2 PG (26-34); Mean Corpuscular Volume 91.1 fL (80-100); Monocytes Absolute Auto 600 /uL (0-900); Monocytes Percent Auto 8.2 % (3-14); Neutrophils Absolute Auto 5400 /uL (1500-7000); Neutrophils Percent Auto 73.1 % (50-75); Platelet Count 415 X10^3/uL (150-400); Red Blood Cell Count 4.69 X10^6/uL (4.5-5.9); Red Cell Distribution Width 13.2 % (11.6-14.8); White Blood Cell Count 7.5 X10^3/uL (4.5-11.0)
[2019-06-19 11:13] LABS: Alanine Aminotransferase 33 IU/L (21-72); Albumin 4.7 g/dL (3.5-5.0); Albumin Globulin Ratio 1.7 (1.0-2.8); Alkaline Phosphatase 99 U/L (38-126); Aspartate Aminotransferase 29 IU/L (17-59); Bilirubin Total 1.2 mg/dL (0.2-1.3); Blood Urea Nitrogen 12 mg/dL (9-20); Carbon Dioxide 27 mmol/L (22-32); Chloride 98 mmol/L (98-107); Cholesterol 151 mg/dL (140-199); Estimated Glomerular Filt Rate > 60.0 mL/min (>60); Globulin 2.8 g/dL (1.7-4.1); Glucose 110 mg/dL (80-110); HDL Cholesterol 40 mg/dL (40-60); HEMOLYSIS < 15 (0-50); LDL Cholesterol Calculated 75 mg/dL (<100); Potassium 5.3 mmol/L (3.4-5.1); Sodium 135 mmol/L (137-145); Total Protein 7.5 g/dL (6.3-8.2); Triglycerides 181 mg/dL (35-150)
== END ==
PROVIDERS: PCP Physician Assistant; Visit Provider Physician Assistant
DX: E78.5 Hyperlipidemia, unspecified (principal); I10 Essential (primary) hypertension
CPT/HCPCS: 36415; 80053; 80061; 85025

== ENCOUNTER 2019-11-14 09:39 | Emergency (ER) | payer MEDICARE, SELFPAY ==
[2018-01-21 22:07] VITALS: BMI 30.4
[2019-11-14] VITALS (7 sets, daily range): BP systolic 117–135; BP diastolic 76–79; PULSE 65–80; RESP 14–18; TEMP 36.8; O2SAT 96–100
--- NOTE | 2019-11-14 09:41 | DI.RAD.S_ITS ---
PROCEDURE: XR CHEST 1V INDICATIONS: Chest pain TECHNIQUE: One view of the chest was acquired. COMPARISON: [facility], CR, XR CHEST 1V, 01/18/2019, 9:58. FINDINGS: Surgical changes and devices: None. Lungs and pleura: Lungs are clear. No pleural effusions or pneumothorax. Mediastinum: Mediastinal contours appear normal. Heart size is normal. Bones and chest wall: No suspicious bony lesions. Overlying soft tissues appear unremarkable. IMPRESSION: No acute cardiopulmonary disease process. Dictated by: Shyanne Jones MD, PhD on 11/14/2019 at 10:05 Approved by: Shyanne Jones MD, PhD on 11/14/2019 at 10:05
--- NOTE | 2019-11-14 09:55 | ED_ITS ---
HPI - General Adult General Chief complaint: Chest Pain Stated complaint: Suspects heart issue, sent by Dr. Irene Time Seen by Provider: 11/14/19 09:41 Source: patient Mode of arrival: Ambulatory Limitations: no limitations History of Present Illness HPI narrative: Patient is a 69-year-old male. We have arrived from his primary doctor's office after he was reportedly failed a exercise stress test. He was getting the treadmill stress test after reporting dyspnea on exertion and chest pressure. I received a call from the provider doing the stress test stating that the patient was able to complete the test however was upon recovery that the patient developed ST depressions. Patient does state that he was having slight chest pain during and after the test. Is reported that he was chest pain-free when he was discharged from the test to come to the emergency department by private vehicle. Upon my evaluation he states he was having slight chest discomfort but it was much better than when he was on the t readmill. He has a prior history of coronary artery disease with a stent placed in 2006. Related Data Home Medications Medication Instructions Recorded Confirmed atorvastatin 40 mg PO DAILY 01/20/18 11/14/19 lisinopril 20 mg PO DAILY 01/20/18 11/14/19 venlafaxine 300 mg PO DAILY 01/20/18 11/14/19 clobetasol 1 applic TOPICAL DIRECTED 01/18/19 11/14/19 ibuprofen 400 mg PO Q6H PRN 01/18/19 11/14/19 metoprolol succinate 25 mg PO DAILY 01/18/19 11/14/19 pregabalin [Lyrica] 100 mg PO DAILY 01/18/19 11/14/19 cyanocobalamin (vitamin B-12) 1,000 mcg PO DAILY 11/14/19 11/14/19 nitroglycerin 0.4 mg SUBLINGUAL PRN PRN 11/14/19 11/14/19 Allergies Allergy/AdvReac Type Severity Reaction Status Date / Time No Known Drug Allergies Allergy Verified 11/14/19 10:01 Review of Systems Constitutional Constitutional: Denies fever(s) Cardiovascular Cardiovascular: Reports chest pain and Reports dyspnea on exertion Respiratory Respiratory: Reports dyspnea on exertion Gastrointestinal Gastrointestinal: Denies abdominal pain and Denies vomiting Genitourinary Genitourinary: Denies dysuria Integumentary/Breasts Skin/Breast: Denies lesions and Denies rash Neurologic Neurologic: Denies behavioral changes Psychiatric Psychiatric: Denies behavioral changes Hematologic/Lymphatic Hematologic/Lymphatic: Denies easy bleeding and Denies easy bruising Patient History Medical History (Updated 11/14/19 @ 12:10 by Siva De La Rosa DO) CAD (coronary artery disease) (Acute) COPD (chronic obstructive pulmonary disease) (Acute) Depression (Acute) HTN (hypertension) (Chronic) Hyperlipidemia (Chronic) Insomnia (Acute) Mild cognitive impairment (Acute) Peripheral neuropathy (Chronic) Spinal stenosis (Acute) Surgical History Total knee replacement status (Acute) Social History household members: none lives independently: Yes Smoking Status: Former smoker alcohol intake: current Smoking Status: Former smoker alcohol intake frequency: 0-2 drinks per day Substance Use Type: does not use Exam Initial Vital Signs Initial Vital Signs: Vital Signs Temperature 98.3 F 11/14/19 09:40 Pulse Rate 80 11/14/19 09:40 Respiratory Rate 18 11/14/19 09:40 Blood Pressure 135/79 11/14/19 09:40 Pulse Oximetry 100 11/14/19 09:40 Const General: cooperative, healthy appearing and comfortable Limitations: mental status not altered Resp Effort & Inspection: normal respiratory effort Auscultation: clear to auscultation bilaterally Cardio Rate: regular rate Rhythm: regular rhythm GI Inspection: non-distended Palpation: soft Skin Lesions: no lesions Rashes: no rashes Neuro General: alert, awake and oriented x3 Cognition: normal cognition Speech: speech normal Motor: muscle tone normal throughout Extrem General: normal to inspection and capillary refill normal Psych Appearance: grossly normal and well kempt Course Orders Ordered: ED Orders 11/14/19 09:41 XR chest 1V Stat EKG-12 Lead Stat 11/14/19 09:50 Complete Blood Count AUTO DIFF Stat Comprehensive Metabolic Panel Stat NT-proBNP (BNP-Adult 18+) Stat Partial Thromboplastin Time Stat Prothrombin Time INR Stat Troponin I Stat Heparin Sodium/Dextrose (Heparin Drip) 25,000 unit in 500 mls @ 20 mls/hr IV CONT NASIR; Protocol Last Admin: 11/14/19 11:14 Dose: 1,000 units/hr, 20 mls/hr Documented by: FELICITY Discontinued Medications Aspirin (Aspirin Chew) 324 mg PO NOW ONE Stop: 11/14/19 10:02 Last Admin: 11/14/19 10:07 Dose: 324 mg Documented by: JEANNIE Heparin Sodium (Porcine) (Heparin) 5,000 unit IV NOW ONE Stop: 11/14/19 10:58 Last Admin: 11/14/19 11:14 Dose: 5,000 unit Documented by: FELICITY Nitroglycerin (Nitro-Bid) 0.5 inch TOP NOW ONE Stop: 11/14/19 10:02 Last Admin: 11/14/19 10:08 Dose: 0.5 inch Documented by: JEANNIE Vital Signs Vital signs: Vital Signs - 8 hr 11/14/19 09:40 11/14/19 10:03 11/14/19 10:08 Temperature 98.3 F Pulse Rate 80 79 80 Respiratory Rate 18 16 Blood Pressure 135/79 117/76 Blood Pressure [Right Arm] 130/79 Pulse Oximetry 100 99 11/14/19 10:30 11/14/19 11:00 11/14/19 11:30 Temperature Pulse Rate 69 67 70 Respiratory Rate 18 14 18 Blood Pressure Blood Pressure [Right Arm] 122/79 122/76 126/79 Pulse Oximetry 99 99 97 Medical Decision Making Medical Records Medical records reviewed: Yes I reviewed the patient's medical records. Lab Data Lab results reviewed: Yes I reviewed the patient's lab results. Result diagrams: 11/14/19 09:50 11/14/19 09:50 Labs: Lab Results 11/14/19 11/14/19 11/14/19 Range/Units 09:50 09:50 09:50 WBC 9.3 (4.5-11.0) X10^3/uL RBC 4.49 L (4.5-5.9) X10^6/uL Hgb 14.2 (13.5-17.5) g/dL Hct 40.0 L (41-53) % MCV 89.2 (80-100) fL MCH 31.5 (26-34) PG MCHC 35.4 (30-36) % RDW 13.4 (11.6-14.8) % Plt Count 416 H (150-400) X10^3/uL Neut % (Auto) 71.1 (50-75) % Lymph % (Auto) 17.4 L (25-40) % [place] % (Auto) 8.8 (3-14) % Eos % (Auto) 1.9 L (2-4) % Baso % (Auto) 0.8 (0-2) % Neut # (Auto) 6600 (0171-0930) /uL Lymph # (Auto) 1600 (4616-8296) /uL [place] # (Auto) 800 (0-900) /uL Eos # (Auto) 200 (0-450) /uL Baso # (Auto) 100 (0-100) /uL PT 11.7 (10.1-12.7) SECONDS INR 1.0 (0.9-1.3) APTT 34 D (26.4-36.2) SECONDS Sodium 136 L (137-145) mmol/L Potassium 4.3 (3.4-5.1) mmol/L Chloride 99 (98-107) mmol/L Carbon Dioxide 24 (22-32) mmol/L BUN 13 (9-20) mg/dL Creatinine 1.10 (0.66-1.25) mg/dL Estimated GFR > 60.0 (>60) mL/min BUN/Creatinine Ratio 11.8 (6-22) Glucose 113 H (80-110) mg/dL Calcium 9.6 (8.4-10.2) mg/dL Total Bilirubin 0.9 (0.2-1.3) mg/dL AST 30 (17-59) IU/L ALT 31 (<50) IU/L Alkaline Phosphatase 96 (38-126) U/L Troponin I 0.981 H* (0.01-0.034) ng/mL NT-Pro-B Natriuret Pep 611 H (<125) pg/mL Total Protein 7.7 (6.3-8.2) g/dL Albumin 4.7 (3.5-5.0) g/dL Globulin 3.0 (1.7-4.1) g/dL Albumin/Globulin Ratio 1.6 (1.0-2.8) Imaging Data Chest x-ray: Radiologist's Impression: [address] [address] XRay Report Signed Patient: Dru Mcpherson [facility]#: [id number] : 9Acct:[id number] Age/Sex: 69 / MDate of Service: 11/14/19 Loc: ED Accession Number: [id number] Procedure: XR chest 1V Ordering Provider: Siva De La Rosa D.O. PROCEDURE: XR CHEST 1V INDICATIONS: Chest pain TECHNIQUE: One view of the chest was acquired. COMPARISON: [facility], CR, XR CHEST 1V, 01/18/2019, 9:58. FINDINGS: Surgical changes and devices: None. Lungs and pleura: Lungs are clear. No pleural effusions or pneumothorax. Mediastinum: Mediastinal contours appear normal. Heart size is normal. Bones and chest wall: No suspicious bony lesions. Overlying soft tissues appe ar unremarkable. IMPRESSION: No acute cardiopulmonary disease process. Dictated by: Shyanne Jones MD, PhD on 11/14/2019 at 10:05 Approved by: Shyanne Jones MD, PhD on 11/14/2019 at 10:05 ECG Data Attestation: I personally reviewed and interpreted this ECG as follows: Prior ECG tracings: not available for review Interpretation: Sinus rhythm Ventricular rate is 79 Normal axis Normal QRS Normal QTC No ST T wave changes MDM Narrative Medical decision making narrative: Per the report from the prior provider that the patient was symptom-free upon discharge after his stress test. When he arrived here he stated he was having a small amount of chest pain was much better than earlier. He was reported that the patient had a positive exercise stress test with ST depressions upon recovery. Patient had an unremarkable EKG here in the ER. His troponin is elevated. He was given an aspirin. He was given nitroglycerin for his symptoms he was having. Was started on heparin. Bhavin sagastume was asking to go to [facility]. I did discuss the case with with cardiology who accepts the patient. I did discuss this with the patient expressed understanding and agreement. Patient is stable for transport. Discharge Plan Departure Patient Disposition: [facility] Clinical Impression: Non-ST elevation [place] (NSTEMI) Prescriptions: No Action metoprolol succinate 25 mg tablet extended release 24 hr 25 mg PO DAILY RF: 0 clobetasol 0.05 % ointment 1 applic topical DIRECTED RF: 0 pregabalin [Lyrica] 50 mg capsule 100 mg PO DAILY RF: 0 ibuprofen 200 mg Tablet 400 mg PO Q6H PRN (Reason: pain) RF: 0 atorvastatin 40 mg Tablet 40 mg PO DAILY RF: 0 venlafaxine 150 mg Capsule,Extended Release 24hr 300 mg PO DAILY RF: 0 lisinopril 20 mg tablet 20 mg PO DAILY RF: 0 cyanocobalamin (vitamin B-12) 1,000 mcg tablet 1,000 mcg PO DAILY RF: 0 nitroglycerin 0.4 mg tablet, sublingual 0.4 mg sublingual PRN PRN (Reason: Chest Pain) RF: 0 Referrals: Rupali Anthony PA-C [Primary Care Provider] -
[2019-11-14 09:58] LABS: Add Manual Diff / Slide Review NO; Basophils Absolute Auto 100 /uL (0-100); Basophils Percent Auto 0.8 % (0-2); Eosinophils Absolute Auto 200 /uL (0-450); Eosinophils Percent Auto 1.9 % (2-4); Hemoglobin 14.2 g/dL (13.5-17.5); Lymphocytes Absolute Auto 1600 /uL (1100-4500); Lymphocytes Percent Auto 17.4 % (25-40); Mean Corpuscular HGB Conc 35.4 % (30-36); Mean Corpuscular Hemoglobin 31.5 PG (26-34); Mean Corpuscular Volume 89.2 fL (80-100); Monocytes Absolute Auto 800 /uL (0-900); Monocytes Percent Auto 8.8 % (3-14); Neutrophils Absolute Auto 6600 /uL (1500-7000); Neutrophils Percent Auto 71.1 % (50-75); Platelet Count 416 X10^3/uL (150-400); Red Blood Cell Count 4.49 X10^6/uL (4.5-5.9); Red Cell Distribution Width 13.4 % (11.6-14.8); White Blood Cell Count 9.3 X10^3/uL (4.5-11.0)
[2019-11-14] MEDS: ASPIRIN 81 MG CHEW TAB 324 MG PO (10:07)
[2019-11-14] MEDS: NITROGLYCERIN OINT 1 INCH/GM OINT...G. 0.5 INCH TOP (10:08)
[2019-11-14 10:09] LABS: Prothrombin Time 11.7 SECONDS (10.1-12.7)
[2019-11-14 10:12] LABS: Alanine Aminotransferase 31 IU/L (<50); Albumin 4.7 g/dL (3.5-5.0); Albumin Globulin Ratio 1.6 (1.0-2.8); Alkaline Phosphatase 96 U/L (38-126); Aspartate Aminotransferase 30 IU/L (17-59); BUN Creatinine Ratio 11.8 (6-22); Bilirubin Total 0.9 mg/dL (0.2-1.3); Blood Urea Nitrogen 13 mg/dL (9-20); Calcium 9.6 mg/dL (8.4-10.2); Carbon Dioxide 24 mmol/L (22-32); Chloride 99 mmol/L (98-107); Estimated Glomerular Filt Rate > 60.0 mL/min (>60); Glucose 113 mg/dL (80-110); HEMOLYSIS < 15 (0-50); PTT Partial Thromboplastin Tim 34 SECONDS (26.4-36.2); Potassium 4.3 mmol/L (3.4-5.1); Sodium 136 mmol/L (137-145); Total Protein 7.7 g/dL (6.3-8.2)
[2019-11-14 10:24] LABS: NT-proBNP (BNP-Adult 18+) 611 pg/mL (<125)
[2019-11-14 10:56] LABS: Troponin I 0.981 ng/mL (0.01-0.034)
[2019-11-14] MEDS: HEPARIN 5,000 UNIT/ML VIAL 5000 UNIT IV (11:14)
[2019-11-14] MEDS: HEPARIN DRIP 25,000 UNIT/500 ML IV.SOLN 20 UNIT IV (11:14)
--- NOTE | 2019-11-14 12:55 | PC.NURSE ---
pt transferred with Heparin running.
== END 2019-11-14 12:45 | disposition short-term general hospital (02) ==
LOC: ED 09:46
PROVIDERS: Emergency Provider Emergency Medicine; PCP Physician Assistant
DX: I21.4 Non-ST elevation (NSTEMI) myocardial infarction (principal); I25.10 Atherosclerotic heart disease of native coronary artery without angina pectoris; E78.5 Hyperlipidemia, unspecified; I10 Essential (primary) hypertension
CPT/HCPCS: 36415; 71045; 80053; 83880; 84484; 85025; 85610; 85730; 93005; 93010; 96365; 96366; 96375; 99285; J1644

== ENCOUNTER 2019-11-22 09:18 | Emergency (ER) | payer MEDICARE, SELFPAY ==
[2018-01-21 22:07] VITALS: BMI 30.4
[2019-11-22 09:20] VITALS: BP 154/94; PULSE 75; RESP 20; O2SAT 98; BMI 28.3
--- NOTE | 2019-11-22 09:40 | ED_ITS ---
HPI - Fall General Chief Complaint: Fall Stated Complaint: fell three times yesterday,chest pain stent on 4th Time Seen by Provider: 11/22/19 09:39 Source: patient Mode of arrival: Wheelchair History of Present Illness HPI Narrative: The patient is a 69-year-old male who states that he had a stent placed by a business improvement manager at the [facility] 10 days in his right heart. He started walking daily. On the 3rd walk he became acutely short of breath weak and tired without any energy and felt as though he is going to collapse and did collapse to the floor. He does not remember whether not he actually lost consciousness or how long he was down on the floor. That was the hardest fall. He states that since then he believes he has passed out or fallen at least 2 more times. These falls happened a few days ago. He denies any head injury or neck injury. He states that he has primarily bruised his left leg. He is not had any black and blue bruising. He denies that he has ever been told that he has had a heart attack congestive heart failure stroke or seizure. He admits to history of hypertension but has not had diabetes mellitus. He does not smoke cigarettes but drinks alcohol occasionally. He has had a mild headache that is bifrontal associated with some mild neck discomfort. He has had no loss of vision or diplopia. He denies any fever chills or sweats. He has had no significant shortness of breath or cough but has had some intermittent chest pain that he describes as burning in the upper chest. He has been very dizzy and lightheaded at times. He denies any abdominal pain nausea vomiting diarrhea but has had dry black stools. He had a history of an ulcer years ago. He denies any significant indigestion or heartburn and no troubles urinating. Related Data Home Medications Medication Instructions Recorded Confirmed lisinopril 20 mg PO DAILY 01/20/18 11/22/19 clobetasol 1 applic TOPICAL DIRECTED 01/18/19 11/22/19 ibuprofen 400 mg PO Q6H PRN 01/18/19 11/22/19 metoprolol succinate 25 mg PO DAILY 01/18/19 11/22/19 pregabalin [Lyrica] 50 mg PO BID 01/18/19 11/22/19 cyanocobalamin (vitamin B-12) 1,000 mcg PO DAILY 11/14/19 11/22/19 nitroglycerin 0.4 mg SUBLINGUAL PRN PRN 11/14/19 11/22/19 atorvastatin 80 mg PO QPM 11/22/19 11/22/19 ticagrelor [Brilinta] 90 mg PO BID 11/22/19 11/22/19 Allergies Allergy/AdvReac Type Severity Reaction Status Date / Time No Known Drug Allergies Allergy Verified 11/22/19 09:26 Review of Systems Review of Systems Narrative: The patient's review of systems are all negative except for those mentioned in the history of present illness. Patient History Medical History CAD (coronary artery disease) (Acute) COPD (chronic obstructive pulmonary disease) (Acute) Depression (Acute) HTN (hypertension) (Chronic) Hyperlipidemia (Chronic) Insomnia (Acute) Mild cognitive impairment (Acute) Peripheral neuropathy (Chronic) Spinal stenosis (Acute) Surgical History Total knee replacement status (Acute) Social History household members: none lives independently: Yes Smoking Status: Former smoker alcohol intake: current Smoking Status: Former smoker alcohol intake frequency: holidays/special occasions only Substance Use Type: does not use Exam Narrative Exam Narrative: PHYSICAL EXAM: CONSTITUTIONAL: Awake, Alert, Oriented, Coherent, Cooperative in NAD. Does not appear toxic or ill. HEAD: AT/NC EENT: PERRL, FROM of eyes, no discharge, no nystagmus No epistaxis or nasal drainage Oral mucosa is moist and pink, posterior pharynx is without erythema or e xudate. NECK: Supple, no obvious JVD, Trachea is midline without stridor, no palpable LN or masses. SPINE: No gross deformity, no palpable tenderness of the cervical, thoracic, lumbar or sacral spine. No CVA tenderness. THORAX: No deformity, retractions, chest wall tenderness, . LUNGS: Clear with symmetrical breath sounds without respiratory distress HEART: Normal heart tones, regular rhythm and rate without murmur. ABDOMEN: Soft, non-tender, normal bowel sounds without guarding, rebound, rigid ity or palpable mass . EXTREMITIES: No edema, cyanosis, deformity or tenderness. SKIN: No rash, bruising, petechiae or purpura. NEURO: Awake, alert, oriented, conversive, cranial nerves II-XII are symmetrical and normal, moves all 4 extremities and is ambulatory Initial Vital Signs Initial Vital Signs: Vital Signs Pulse Rate 75 11/22/19 09:20 Respiratory Rate 20 11/22/19 09:20 Blood Pressure 154/94 H 11/22/19 09:20 Pulse Oximetry 98 11/22/19 09:20 Course Course Course Narrative: 10:52 Dr. Hill at the [facility] stented the patient 1130 the patient's chest x-ray and x-ray of the pelvis and left hip were negative by my review. The official reading by the radiologist remains pending. His troponin was 0.014. I will call and discussed the patient with Dr. nupur fatima on ski in [facility]. 13:16 I discussed the patient with Dr. Hill from the [facility]. The patient is to stop his metoprolol at this time. He his office will call with a scheduled appointment. He will need to be seen by the rhythm doctors/corn chip maker to evaluate his rhythm. He is to be very careful and not walk climb or operate any dangerous machinery until this is evaluated. He should not be alone. He can be discharged according to . Orders Ordered: Discontinued Medications Sodium Chloride (Normal Saline 0.9%) 1,000 mls @ 150 mls/hr IV CONT NASIR Last Infusion: 11/22/19 13:40 Dose: 0 mls/hr Documented by: Admin: 11/22/19 12:17 Dose: 150 mls/hr Documented by: SCANHAL Vital Signs Vital signs: Vital Signs - 8 hr 11/22/19 09:20 11/22/19 12:10 Pulse Rate 75 58 L Respiratory Rate 20 16 Blood Pressure 154/94 H Blood Pressure [left arm] 136/79 Pulse Oximetry 98 97 MDM - Fall Lab Data Result diagrams: 11/22/19 09:49 11/22/19 09:49 Labs: Lab Results 11/22/19 11/22/19 Range/Units 09:49 09:49 WBC 9.4 (4.5-11.0) X10^3/uL RBC 4.44 L (4.5-5.9) X10^6/uL Hgb 13.9 (13.5-17.5) g/dL Hct 40.3 L (41-53) % MCV 90.7 (80-100) fL MCH 31.3 (26-34) PG MCHC 34.5 (30-36) % RDW 12.8 (11.6-14.8) % Plt Count 432 H (150-400) X10^3/uL Neut % (Auto) 75.3 H (50-75) % Lymph % (Auto) 14.3 L (25-40) % Ware % (Auto) 7.6 (3-14) % Eos % (Auto) 2.0 (2-4) % Baso % (Auto) 0.8 (0-2) % Neut # (Auto) 7100 H (5372-8875) /uL Lymph # (Auto) 1300 (1674-8350) /uL Ware # (Auto) 700 (0-900) /uL Eos # (Auto) 200 (0-450) /uL Baso # (Auto) 100 (0-100) /uL Sodium 134 L (137-145) mmol/L Potassium 4.7 (3.4-5.1) mmol/L Chloride 99 (98-107) mmol/L Carbon Dioxide 23 (22-32) mmol/L BUN 17 (9-20) mg/dL Creatinine 1.22 (0.66-1.25) mg/dL Estimated GFR 58.7 L (>60) mL/min BUN/Creatinine Ratio 13.9 (6-22) Glucose 118 H (80-110) mg/dL Calcium 9.6 (8.4-10.2) mg/dL Magnesium 2.0 (1.6-2.3) mg/dL Total Bilirubin 0.9 (0.2-1.3) mg/dL AST 32 (17-59) IU/L ALT 30 (<50) IU/L Alkaline Phosphatase 107 (38-126) U/L Total Creatine Kinase 111 (55-170) U/L CK-MB (CK-2) 1.58 (<2.37) ng/mL CK-MB (CK-2) Rel Index 1.4 L (1.5-5.0) % Troponin I 0.014 (0.01-0.034) ng/mL Total Protein 7.7 (6.3-8.2) g/dL Albumin 4.6 (3.5-5.0) g/dL Globulin 3.1 (1.7-4.1) g/dL Albumin/Globulin Ratio 1.5 (1.0-2.8) ECG Data Attestation: I personally reviewed and interpreted this ECG as follows: Interpretation: The patient's EKG obtained at 09:3 12:21 a.m. on November 21 reveals a normal sinus rhythm with a borderline first-degree AV block at 208 mi lliseconds. QRS is normal duration QTC is normal at 401 milliseconds. Left axis deviation. The patient has a Q-wave in lead III and AVF with inverted T- waves in lead III AVF and V1. The patient has low voltage criteria. This suggests that the patient is had a inferior wall MT at some time. There are no other diagnostic ST segment changes. Discharge Plan Departure Patient Disposition: Home Clinical Impression: Near syncope Syncope Qualifiers: Syncope type: unspecified Qualified Code(s): R55 - Syncope and collapse Acute hip pain Qualifiers: Laterality: left Qualified Code(s): M25.552 - Pain in left hip Fall Qualifiers: Encounter type: initial encounter Qualified Code(s): W19.XXXA - Unspecified fall, initial encounter Discharge Date/Time: 11/22/19 13:55 Instructions: DI for Syncope in Adults (Fainting), Fainting, How to Prevent Falls Activity Restrictions/Additional Instructions: 1. You need to follow-up with your business improvement manager Dr. Hill or 1 of his partners. You need to be seen by an [facility] corn chip maker/ [place]. Dr. Hill wants you to stop your metoprolol, but take all the rest of your medications. He states that someone from his office should call you later today or tomorrow to make a follow-up appointment. It is imperative that you are seen and evaluated by the their office soon. 2. You should not be driving an automobile in this condition until evaluated by her business improvement manager think a she pass out behind the wheel. You should not be climbing on a ladder any scaffolding or walking alone. You actually should not be staying alone by yourself and should be staying with someone until you can be seen by your business improvement manager. If you pass out there is the possibility that you will fall acute did in the past and could fractured your pelvis or hip. You need to avoid any activities where passing-out could cause you to become injured. That includes operating any dangerous machinery such as saws etc. Prescriptions: No Action metoprolol succinate 25 mg tablet extended release 24 hr 25 mg PO DAILY RF: 0 clobetasol 0.05 % ointment 1 applic topical DIRECTED RF: 0 pregabalin [Lyrica] 50 mg capsule 50 mg PO BID RF: 0 ibuprofen 200 mg Tablet 400 mg PO Q6H PRN (Reason: pain) RF: 0 atorvastatin 80 mg tablet 80 mg PO QPM RF: 0 Brilinta 90 mg tablet 90 mg PO BID RF: 0 lisinopril 20 mg tablet 20 mg PO DAILY RF: 0 cyanocobalamin (vitamin B-12) 1,000 mcg tablet 1,000 mcg PO DAILY RF: 0 nitroglycerin 0.4 mg tablet, sublingual 0.4 mg sublingual PRN PRN (Reason: Chest Pain) RF: 0 Referrals: Rupali Anthony PA-C [Primary Care Provider] -
--- NOTE | 2019-11-22 10:50 | DI.RAD.S_ITS ---
PROCEDURE: XR PELVIS 1-2V INDICATIONS: syncope with collapse and fall, left pelvic and hip pain TECHNIQUE: A single frontal view of the pelvis acquired. COMPARISON: None. FINDINGS: Bones: No fractures or dislocations. No suspicious bony lesions. Soft tissues: Visualized bowel gas pattern is normal. No suspicious soft tissue calcifications. IMPRESSION: Source of left-sided pain is not seen. Dictated by: Roe Garcia M.D. on 11/22/2019 at 11:43 Approved by: Roe Garcia M.D. on 11/22/2019 at 11:44
--- NOTE | 2019-11-22 10:50 | DI.RAD.S_ITS ---
PROCEDURE: XR CHEST 2V INDICATIONS: Recent cardiac stent with syncope and fall TECHNIQUE: 2 views of the chest were acquired. COMPARISON: [facility], CR, XR CHEST 1V, 11/14/2019, 9:51. [facility], CR, XR CHEST 2V, 01/19/2019, 12:06. FINDINGS: Surgical changes and devices: None. Lungs and pleura: Lungs are clear except for a mild chronic interstitial prominence. No pleural effusions or pneumothorax. Mediastinum: Mediastinal contours are normal. Heart size is normal. Bones and chest wall: No suspicious bony abnormalities. Soft tissues appear unremarkable. IMPRESSION: Mild chronic interstitial prominence perhaps reflecting prior smoking history. No acute trauma found. Dictated by: Roe Garcia M.D. on 11/22/2019 at 11:38 Approved by: Roe Garcia M.D. on 11/22/2019 at 11:43
[2019-11-22 11:04] LABS: Add Manual Diff / Slide Review NO; Basophils Absolute Auto 100 /uL (0-100); Basophils Percent Auto 0.8 % (0-2); Eosinophils Absolute Auto 200 /uL (0-450); Hematocrit 40.3 % (41-53); Hemoglobin 13.9 g/dL (13.5-17.5); Lymphocytes Absolute Auto 1300 /uL (1100-4500); Lymphocytes Percent Auto 14.3 % (25-40); Mean Corpuscular HGB Conc 34.5 % (30-36); Mean Corpuscular Hemoglobin 31.3 PG (26-34); Mean Corpuscular Volume 90.7 fL (80-100); Monocytes Absolute Auto 700 /uL (0-900); Monocytes Percent Auto 7.6 % (3-14); Neutrophils Absolute Auto 7100 /uL (1500-7000); Neutrophils Percent Auto 75.3 % (50-75); Platelet Count 432 X10^3/uL (150-400); Red Blood Cell Count 4.44 X10^6/uL (4.5-5.9); Red Cell Distribution Width 12.8 % (11.6-14.8); White Blood Cell Count 9.4 X10^3/uL (4.5-11.0)
[2019-11-22 11:10] LABS: Alanine Aminotransferase 30 IU/L (<50); Albumin 4.6 g/dL (3.5-5.0); Albumin Globulin Ratio 1.5 (1.0-2.8); Alkaline Phosphatase 107 U/L (38-126); Aspartate Aminotransferase 32 IU/L (17-59); BUN Creatinine Ratio 13.9 (6-22); Bilirubin Total 0.9 mg/dL (0.2-1.3); Blood Urea Nitrogen 17 mg/dL (9-20); Calcium 9.6 mg/dL (8.4-10.2); Carbon Dioxide 23 mmol/L (22-32); Chloride 99 mmol/L (98-107); Creatine Kinase 111 U/L (55-170); Estimated Glomerular Filt Rate 58.7 mL/min (>60); Globulin 3.1 g/dL (1.7-4.1); Glucose 118 mg/dL (80-110); HEMOLYSIS < 15 (0-50); Potassium 4.7 mmol/L (3.4-5.1); Sodium 134 mmol/L (137-145); Total Protein 7.7 g/dL (6.3-8.2)
[2019-11-22 11:22] LABS: Troponin I 0.014 ng/mL (0.01-0.034)
[2019-11-22 11:47] LABS: CKMB % Relative Index 1.4 % (1.5-5.0); Creatine Kinase MB 1.58 ng/mL (<2.37)
[2019-11-22 12:10] VITALS: BP 136/79; PULSE 58; RESP 16; O2SAT 97
--- NOTE | 2019-11-22 12:12 | PC.NURSE ---
pt c/o increasing sob, and feeling lethargic. pt states over the past 2 days has had 3 syncople episodes. yesterday was the worst one. pt states he was standing in the kitchen and woke up on the ground. c/o left side/hip pain. pt states he had similar episode 10 days ago, at that time he was seen and had cardiac stent place. states was feeling better up til 3 days ago. started with lethergy when he went for his normal walk, progressed to multiple syncople episode.
[2019-11-22] MEDS: SODIUM CHLORIDE 0.9% 1,000 ML 150 ML IV (12:17)
[2019-11-22 13:41] VITALS: BP 141/74; PULSE 67; RESP 18; O2SAT 99
== END 2019-11-22 13:55 | disposition home or self-care (01) ==
PROVIDERS: Emergency Provider Emergency Medicine; PCP Physician Assistant
DX: R55 Syncope and collapse (principal); M25.552 Pain in left hip; Z95.5 Presence of coronary angioplasty implant and graft
CPT/HCPCS: 36415; 71046; 72170; 80053; 82550; 82553; 83735; 84484; 85025; 93005; 96360; 99284

== ENCOUNTER 2020-03-13 06:57 | Emergency (ER) | payer MEDICARE, SELFPAY ==
[2018-01-21 22:07] VITALS: BMI 30.4
[2020-03-13 07:08] VITALS: BP 157/95; PULSE 80; RESP 15; TEMP 36.7; O2SAT 99
--- NOTE | 2020-03-13 07:18 | ED.WOUNDLAC ---
HPI - Wound/Laceration General Chief Complaint: Wound/Laceration Stated Complaint: LEFT HAND MIDDLE FINGER CUT WONT STOP BLEEDING Time Seen by Provider: 03/13/20 07:06 Source: patient Mode of arrival: Ambulatory Limitations: no limitations History of Present Illness HPI narrative: Patient is a 69-year-old male who presents with left hand laceration. States it happened last night about 830, he was taking the shovel that he uses to clean up his dog poop, when he tripped and fell and cut his fingers on the shovel. he is taking Brilinta the distal tip of his left middle finger and has not stopped bleeding. He took off the bandage in he this morning and said it continue to bleed. He has no numbness or tingling. Related Data Home Medications Medication Instructions Recorded Confirmed lisinopril 20 mg PO DAILY 01/20/18 11/22/19 clobetasol 1 applic TOPICAL DIRECTED 01/18/19 11/22/19 ibuprofen 400 mg PO Q6H PRN 01/18/19 11/22/19 metoprolol succinate 25 mg PO DAILY 01/18/19 11/22/19 pregabalin [Lyrica] 50 mg PO BID 01/18/19 11/22/19 cyanocobalamin (vitamin B-12) 1,000 mcg PO DAILY 11/14/19 11/22/19 nitroglycerin 0.4 mg SUBLINGUAL PRN PRN 11/14/19 11/22/19 atorvastatin 80 mg PO QPM 11/22/19 11/22/19 ticagrelor [Brilinta] 90 mg PO BID 11/22/19 11/22/19 Allergies Allergy/AdvReac Type Severity Reaction Status Date / Time No Known Drug Allergies Allergy Verified 11/22/19 09:26 Review of Systems Review of Systems Narrative: GENERAL: Denies chills,fever HEENT: Denies throat pain RESPIRATORY: Denies dyspnea, cough, wheezing CARDIOVASCULAR: Denies chest pain, palpitations GASTROINTESTINAL: Denies nausea, vomiting MUSCULOSKELETAL: Denies extremity pain, injury SKIN: See HPI NEUROLOGIC: Denies weakness, dizziness, headache, numbness 8 point review of systems is negative except for those stated above and HPI Patient History Medical History CAD (coronary artery disease) (Acute) COPD (chronic obstructive pulmonary disease) (Acute) Depression (Acute) HTN (hypertension) (Chronic) Hyperlipidemia (Chronic) Insomnia (Acute) Mild cognitive impairment (Acute) Peripheral neuropathy (Chronic) Spinal stenosis (Acute) Surgical History Total knee replacement status (Acute) Social History household members: none lives independently: Yes Smoking Status: Former smoker alcohol intake: current Smoking Status: Former smoker alcohol intake frequency: holidays/special occasions only Substance Use Type: does not use Exam Initial Vital Signs Initial Vital Signs: Vital Signs Temperature 98.1 F 03/13/20 07:08 Pulse Rate 80 03/13/20 07:08 Respiratory Rate 15 03/13/20 07:08 Blood Pressure 157/95 H 03/13/20 07:08 Pulse Oximetry 99 03/13/20 07:08 GENERAL: Pleasant alert elder gentleman CARDIOVASCULAR: peripheral pulses in tact, cap refill <2 sec RESPIRATORY: No respiratory distress, speaks in full sentences without difficulty EXTREMITIES: Normal range of motion, no clubbing or edema. Neurovascularly intact. Left and sensation in all fingertips intact. Full range of motion NEUROLOGICAL: Cranial nerves II through XII grossly intact. Normal gait and speech. SKIN: Superficial lacerations on left fingers his left distal tip of the middle finger there is small amount of oozing blood. Course Vital Signs Vital signs: Vital Signs - 8 hr 03/13/20 07:08 Temperature 98.1 F Pulse Rate 80 Respiratory Rate 15 Blood Pressure 157/95 H Pulse Oximetry 99 MDM - Wound/Laceration MDM Narrative Medical decision making narrative: Surgicel and dressing placed. No sign of infection at this time. Discharge Plan Departure Patient Disposition: Home Clinical Impression: Laceration of finger of left hand Qualifiers: Encounter type: initial encounter Finger: middle finger Damage to nail status: without damage Foreign body presence: without foreign body Qualified Code(s): S61.213A - Laceration without foreign body of left middle finger without damage to nail, initial encounter Discharge Date/Time: 03/13/20 07:30 Instructions: DI for Minor Laceration Activity Restrictions/Additional Instructions: *You have been diagnosed with left hand laceration *What to do: Keep dressing on all day today may take it off this evening. Keep area clean and dry with soap and water apply new dressing if needed *Continue to take medications as directed *Follow up with your primary care provider in 2-3 days *Return to ER if you should have increasing redness swelling pus fever pain inability to move finger or any new, worsening or concerning symptoms Prescriptions: No Action metoprolol succinate 25 mg tablet extended release 24 hr 25 mg PO DAILY RF: 0 clobetasol 0.05 % ointment 1 applic topical DIRECTED RF: 0 pregabalin [Lyrica] 50 mg capsule 50 mg PO BID RF: 0 ibuprofen 200 mg Tablet 400 mg PO Q6H PRN (Reason: pain) RF: 0 atorvastatin 80 mg tablet 80 mg PO QPM RF: 0 Brilinta 90 mg tablet 90 mg PO BID RF: 0 lisinopril 20 mg tablet 20 mg PO DAILY RF: 0 cyanocobalamin (vitamin B-12) 1,000 mcg tablet 1,000 mcg PO DAILY RF: 0 nitroglycerin 0.4 mg tablet, sublingual 0.4 mg sublingual PRN PRN (Reason: Chest Pain) RF: 0 Referrals: Rupali Anthony PA-C [Primary Care Provider] -
== END 2020-03-13 07:30 | disposition home or self-care (01) ==
PROVIDERS: Emergency Provider Emergency Medicine; PCP Physician Assistant
DX: S61.213A Laceration without foreign body of left middle finger without damage to nail, initial encounter (principal); W45.8XXA Other foreign body or object entering through skin, initial encounter
CPT/HCPCS: 99281; 99282

== ENCOUNTER → 2020-03-31 13:57 | Outpatient (CLI) | payer MEDICARE, SELFPAY ==
[2018-01-21 22:07] VITALS: BMI 30.4
--- NOTE | 2020-03-31 | DI.RAD.S_ITS ---
PROCEDURE: XR KNEE LT 3V INDICATIONS: PAIN IN LEFT KNEE TECHNIQUE: 3 views of the knee were acquired. COMPARISON: None. FINDINGS: Bones: No fractures or dislocations. Prior left total knee arthroplasty, no sign of arthroplasty device loosening or disruption. No suspicious bony lesions. Soft tissues: No joint effusion. No suspicious soft tissue calcifications. IMPRESSION: No trauma found. Arthroplasty device at the left knee appears free of loosening or disruption. Dictated by: Roe Garcia M.D. on 03/31/2020 at 15:32 Approved by: Roe Garcia M.D. on 03/31/2020 at 15:34
== END ==
PROVIDERS: PCP Physician Assistant; Referring Provider Physician Assistant; Visit Provider Physician Assistant
DX: M25.562 Pain in left knee (principal); Z96.652 Presence of left artificial knee joint
CPT/HCPCS: 73562

== ENCOUNTER 2020-09-06 14:52 | Emergency (ER) | payer MEDICARE, SELFPAY ==
[2018-01-21 22:07] VITALS: BMI 30.4
[2020-09-06] VITALS (7 sets, daily range): BP systolic 134; BP diastolic 94; PULSE 55–67; RESP 14–21; TEMP 37.1; O2SAT 96–99; BMI 29.0
--- NOTE | 2020-09-06 14:57 | DI.RAD.S_ITS ---
PROCEDURE: XR SHOULDER RT MIN 2V INDICATIONS: Fall with R shoulder pain TECHNIQUE: 3 views of the shoulder were acquired. COMPARISON: None. FINDINGS: Bones: No fractures or dislocations. No suspicious bony lesions. Visualized ribs appear intact. Degenerative changes are seen, including subacromial spurring. Soft tissues: No suspicious soft tissue calcifications. The visualized lung demonstrates an unremarkable appearance. IMPRESSION: No displaced fractures are seen on these plain films. If there is focal tenderness, or other clinical concern for a fracture not seen on these images in this patient with a given history of trauma, please consider a dedicated CT for further evaluation. If there is strong clinical suspicion for internal derangement of the right shoulder, please consider a dedicated, scheduled MRI for further evaluation (assuming that there is no contraindication to MRI). If there is strong clinical concern for a labral abnormality, this should be performed according to the arthrogram protocol. Dictated by: Fracisco Stokes M.D. on 09/06/2020 at 14:48 Approved by: Fracisco Stokes M.D. on 09/06/2020 at 14:48
--- NOTE | 2020-09-06 14:57 | DI.RAD.S_ITS ---
PROCEDURE: XR RIBS RT MIN 3V W CXR 1V INDICATIONS: fall with R sided rib pain TECHNIQUE: 2 views of the right ribs were acquired, along with a single view chest. COMPARISON: [facility], CR, XR CHEST 2V, 11/22/2019, 11:07. [facility], CR, XR SHOULDER RT MIN 2V, 09/06/2020, 14:58. FINDINGS: Surgical changes and devices: None. Bones and chest wall: No fractures or dislocations. No suspicious bony lesions. Overlying soft tissues appear unremarkable. Age-appropriate bony degenerative changes are seen. Lungs and pleura: No pleural effusions or pneumothorax. Lungs appear clear. Mediastinum: Mediastinal contours appear normal. Heart size is normal. Atherosclerotic calcification of the aortic arch is noted. IMPRESSION: No displaced rib fracture can be seen. No pneumothorax. Dictated by: Fracisco Stokes M.D. on 09/06/2020 at 14:46 Approved by: Fracisco Stokes M.D. on 09/06/2020 at 14:47
--- NOTE | 2020-09-06 15:00 | ED_ITS ---
HPI - Trauma General Chief Complaint: Fall Stated Complaint: Modified Trauma Time Seen by Provider: 09/06/20 14:53 Source: patient and EMS Mode of arrival: EMS Limitations: no limitations History of Present Illness HPI narrative: 70-year-old male former smoker with cardiac history including hypertension hyperlipidemia also takes Brilinta presents with an accidental ground level fall just prior to arrival. The patient was in his normal state of health and was walking out of a local restaurant when he tripped over curb and fell onto his right shoulder and ribs. He denies any head neck or back pain. He has full recall and states he did not lose consciousness. He does have pain of his right lower, lateral ribs which is worse with taking a deep breath. He denies any cough. He has had no nausea or vomiting. He has right shoulder pain full range of motion. He also has some superficial lacerations in the palm of his right hand where he had been holding on to growlers containing beer. He states his tetanus is current MD complaint: fall, injury and pain Onset (ago): minute(s) Loss of Consciousness: no Location: chest Location - Extremities: Right: shoulder Severity: moderate Context: fall Associated symptoms: denies other symptoms Related Data Home Medications Medication Instructions Recorded Confirmed lisinopril 20 mg PO DAILY 01/20/18 11/22/19 clobetasol 1 applic TOPICAL DIRECTED 01/18/19 11/22/19 ibuprofen 400 mg PO Q6H PRN 01/18/19 11/22/19 metoprolol succinate 25 mg PO DAILY 01/18/19 11/22/19 pregabalin [Lyrica] 50 mg PO BID 01/18/19 11/22/19 cyanocobalamin (vitamin B-12) 1,000 mcg PO DAILY 11/14/19 11/22/19 nitroglycerin 0.4 mg SUBLINGUAL PRN PRN 11/14/19 11/22/19 atorvastatin 80 mg PO QPM 11/22/19 11/22/19 ticagrelor [Brilinta] 90 mg PO BID 11/22/19 11/22/19 Previous Rx's Medication Instructions Recorded cyclobenzaprine 10 mg PO TID PRN #14 tab 09/06/20 hydrocodone-acetaminophen 1 tab PO Q4-6H PRN #10 tab 09/06/20 Allergies Allergy/AdvReac Type Severity Reaction Status Date / Time No Known Drug Allergies Allergy Verified 09/06/20 15:00 Review of Systems Constitutional Constitutional: Denies chills, Denies fatigue, Denies fever(s), Denies frequent falls, Denies lethargy and Denies weakness Eyes Eyes: Denies change in vision, Denies eye discharge, Denies irritation and Denies loss of vision ENT Ears, Nose, Mouth, and Throat: Denies change in voice, Denies dizziness, Denies neck pain, Denies sore throat and Denies throat swelling Cardiovascular Cardiovascular: Denies chest pain, Denies irregular heart rhythm, Denies lightheadedness, Denies palpitations, Denies dyspnea, Denies dyspnea on exertion and Denies orthopnea Comments: Right-sided chest wall pain Respiratory Respiratory: Denies cough, Denies dyspnea, Denies dyspnea on exertion and Denies wheezing Gastrointestinal Gastrointestinal: Denies abdominal pain, Denies change in bowel habits, Denies diarrhea, Denies nausea and Denies vomiting Musculoskeletal Musculoskeletal: Reports arthralgias, Denies neck pain and Denies numbness Integumentary/Breasts Skin/Breast: Denies pruritus, Denies erythema, Denies rash and Denies wounds Neurologic Neurologic: Denies behavioral changes, Denies confusion, Denies dizziness, Denies frequent falls, Denies loss of vision, Denies numbness and Denies weakness Psychiatric Psychiatric: Denies anxiety, Denies behavioral changes, Denies confusion, Denies depression, Denies homicidal ideation and Denies suicidal ideation Endocrine Endocrine: Denies fatigue, Denies flushing and Denies palpitations Hematologic/Lymphatic Hematologic/Lymphatic: Denies easy bruising Allergic/Immunologic Allergic/Immunologic: Denies urticaria, Denies throat swelling and Denies wheezing Patient History Medical History (Updated 09/06/20 @ 17:51 by Ascencion Silva DO) CAD (coronary artery disease) COPD (chronic obstructive pulmonary disease) Depression HTN (hypertension) Hyperlipidemia Insomnia Mild cognitive impairment Peripheral neuropathy Spinal stenosis Surgical History Total knee replacement status Social History household members: none lives independently: Yes Smoking Status: Former smoker alcohol intake: current Smoking Status: Former smoker alcohol intake frequency: holidays/special occasions only Substance Use Type: does not use Exam Narrative Exam Narrative: GENERAL: [70] year old patient appears stated age. Well- nourished, well-developed patient, in mild distress. GCS 15 HEAD: Atraumatic. Normocephalic. No abrasion, contusion, tenderness EYES: Pupils equal round and reactive. Extraocular motions intact. No scleral icterus. No injection or drainage. ENT: Nose without bleeding, purulent drainage. Throat without erythema, tonsilla r hypertrophy or exudate. Airway patent. NECK: Trachea midline. Non tender. No bony tenderness, step-offs CARDIOVASCULAR: Regular rate and rhythm without murmurs, gallops, or rubs. Right lower anterior ribs tender to palpation, mild ecchymosis noted on liver RESPIRATORY: Clear to auscultation. Breath sounds equal bilaterally. No wheezes, rales, or rhonchi. GASTROINTESTINAL: Abdomen soft, non-tender, nondistended. EXTREMITIES: Full but painful range of motion of the right shoulder without o bvious deformity or crepitance. Closed,neurovascularly intact. No specific wrist pain, full painless ROM. No pain at R anatomic snuff box, no pain with axial loading. Multiple small superficail abrasions, a ffew small pieces of glass removed. No obvious remaining FB BACK: Nontender without deformity or crepitance. No flank tenderness. NEURO: AOx3. SKIN: No rash or erythema of visible areas Initial Vital Signs Initial Vital Signs: Vital Signs Temperature 98.8 F 09/06/20 14:55 Pulse Rate 67 09/06/20 14:55 Respiratory Rate 14 09/06/20 14:55 Blood Pressure 134/94 H 09/06/20 14:55 Pulse Oximetry 96 09/06/20 14:55 Course Orders Ordered: ED Orders 09/06/20 14:54 Complete Blood Count AUTO DIFF Stat Comprehensive Metabolic Panel Stat Prothrombin Time INR Stat 09/06/20 14:57 XR ribs RT min 3V w CXR1V Stat XR shoulder RT min 2V Stat Discontinued Medications Hydrocodone Bitart/Acetaminophen (Hydrocodone/Acet 5/325 Prepack) 1 bottle MISC SEEINSTR ONE Stop: 09/06/20 17:49 Cyclobenzaprine HCl (Cyclobenzaprine 10 Mg Prepack) 1 bottle MISC SEEINSTR ONE Stop: 09/06/20 17:49 Vital Signs Vital signs: Vital Signs - 8 hr 09/06/20 14:55 09/06/20 15:12 09/06/20 15:30 Temperature 98.8 F Pulse Rate 67 63 61 Respiratory Rate 14 19 Blood Pressure 134/94 H Pulse Oximetry 96 97 09/06/20 16:00 09/06/20 16:30 09/06/20 17:00 Temperature Pulse Rate 57 L 56 L 55 L Respiratory Rate 20 19 21 Blood Pressure 134/94 H Pulse Oximetry 97 99 99 09/06/20 17:30 Temperature Pulse Rate 56 L Respiratory Rate 20 Blood Pressure 134/94 H Pulse Oximetry 98 MDM - Trauma Lab Data Result diagrams: 09/06/20 14:54 09/06/20 14:54 Labs: Lab Results 09/06/20 09/06/20 09/06/20 Range/Units 14:54 14:54 14:54 WBC 11.1 H (4.5-11.0) X10^3/uL RBC 4.47 L (4.5-5.9) X10^6/uL Hgb 13.7 (13.5-17.5) g/dL Hct 40.7 L (41-53) % MCV 91.1 (80-100) fL MCH 30.7 (26-34) PG MCHC 33.6 (30-36) % RDW 13.3 (11.6-14.8) % Plt Count 404 H (150-400) X10^3/uL Neut % (Auto) 74.5 (50-75) % Lymph % (Auto) 16.5 L (25-40) % Jewell % (Auto) 6.5 (3-14) % Eos % (Auto) 1.8 L (2-4) % Baso % (Auto) 0.7 (0-2) % Neut # (Auto) 8300 H (6395-1159) /uL Lymph # (Auto) 1800 (7955-8711) /uL Jewell # (Auto) 700 (0-900) /uL Eos # (Auto) 200 (0-450) /uL Baso # (Auto) 100 (0-100) /uL PT 11.5 (10.1-12.7) SECONDS INR 1.0 (0.9-1.3) Sodium 135 L (137-145) mmol/L Potassium 4.5 (3.4-5.1) mmol/L Chloride 103 (98-107) mmol/L Carbon Dioxide 26 (22-32) mmol/L BUN 14 (9-20) mg/dL Creatinine 1.03 (0.66-1.25) mg/dL Estimated GFR > 60.0 (>60) mL/min BUN/Creatinine Ratio 13.6 (6-22) Glucose 100 (80-110) mg/dL Calcium 9.4 (8.4-10.2) mg/dL Total Bilirubin 0.9 (0.2-1.3) mg/dL AST 43 (17-59) IU/L ALT 28 (<50) IU/L Alkaline Phosphatase 69 (38-126) U/L Total Protein 7.7 (6.3-8.2) g/dL Albumin 4.6 (3.5-5.0) g/dL Globulin 3.1 (1.7-4.1) g/dL Albumin/Globulin Ratio 1.5 (1.0-2.8) Imaging Data Chest x-ray: Radiologist's Impression: [address] [id number] ReportSigned Patient: Dru Mcpherson DMR#: [id number]: 9Acct:[id number]/Sex: 70 / MDate of Service: 09/06/20Loc: EDAccession Number: [id number] Procedure: XR ribs RT min 3V w CXR1V Ordering Provider: Ascencion Silva D.O. PROCEDURE: XR RIBS RT MIN 3V W CXR 1V INDICATIONS: fall with R sided rib pain TECHNIQUE: 2 views of the right ribs were acquired, along with a single view chest. COMPARISON: [facility], CR, XR CHEST 2V, 11/22/2019, 11:07. [facility], CR, XR SHOULDER RT MIN 2V, 09/06/2020, 14:58. FINDINGS: Surgical changes and devices: None. Bones and chest wall: No fractures or dislocations. No suspicious bony lesions. Overlying soft tissues appear unremarkable. Age-appropriate bony degenerative changes are seen. Lungs and pleura: No pleural effusions or pneumothorax. Lungs appear clear. Mediastinum: Mediastinal contours appear normal. Heart size is normal. Atherosclerotic calcification of the aortic arch is noted. IMPRESSION: No displaced rib fracture can be seen. No pneumothorax. Dictated by: Fracisco Stokes M.D. on 09/06/2020 at 14:46 Approved by: Fracisco Stokes M.D. on 09/06/2020 at 14:47 Extremity x-ray #1: Radiologist's Impression: Dru Mcpherson 70 M [address] [id number] ReportSigned Patient: Dru Mcpherson DMR#: [id number]: 1950cct:[id number]/Sex: 70 / MDate of Service: 09/06/20Loc: EDAccession Number: [id number] Procedure: XR shoulder RT min 2V Ordering Provider: Ascencion Silva D.O. PROCEDURE: XR SHOULDER RT MIN 2V INDICATIONS: Fall with R shoulder pain TECHNIQUE: 3 views of the shoulder were acquired. COMPARISON: None. FINDINGS: Bones: No fractures or dislocations. No suspicious bony lesions. Visualized ribs appear intact. Degenerative changes are seen, including subacromial spurring. Soft tissues: No suspicious soft tissue calcifications. The visualized lung demonstrates an unremarkable appearance. IMPRESSION: No displaced fractures are seen on these plain films. If there is focal tenderness, or other clinical concern for a fracture not seen on these images in this patient with a given history of trauma, please consider a dedica blanquita CT for further evaluation. If there is strong clinical suspicion for internal derangement of the right shoulder, please consider a dedicated, scheduled MRI for further evaluation (assuming that there is no contraindication to MRI). If there is strong clinical concern for a labral abnormality, this should be performed according to the arthrogram protocol. Dictated by: Fracisco Stokes M.D. on 09/06/2020 at 14:48 Approved by: Fracisco Stokes M.D. on 09/06/2020 at 14:48 Discharge Plan Departure Patient Disposition: Home Clinical Impression: Contusion of rib on right side Qualifiers: Encounter type: initial encounter Qualified Code(s): S20.211A - Contusion of right front wall of thorax, initial encounter Abrasion of hand, right Qualifiers: Encounter type: initial encounter Qualified Code(s): S60.511A - Abrasion of right hand, initial encounter Contusion of right shoulder Qualifiers: Encounter type: initial encounter Qualified Code(s): S40.011A - Contusion of right shoulder, initial encounter Instructions: How to Prevent Falls Activity Restrictions/Additional Instructions: *You have been diagnosed with [right shoulder sprain, right side rib contusions, superficial abrasions dear hand, wrist sprain and other injuries as a conseq uence of your fall] *What to do: *Take medications as directed *Follow up with your primary care provider in 2-3 days, call for an appointment. Let them know you were seen in the Emergency Department and that we ask that you be seen in follow up *Return to ER if you should have any new, worsening or concerning symptoms Prescriptions: New cyclobenzaprine 10 mg tablet 10 mg PO TID PRN (Reason: muscle spasm) Qty: 14 RF: 0 hydrocodone-acetaminophen 5-325 mg tablet 1 tab PO Q4-6H PRN (Reason: pain) Qty: 10 RF: 0 No Action metoprolol succinate 25 mg tablet extended release 24 hr 25 mg PO DAILY RF: 0 clobetasol 0.05 % ointment 1 applic topical DIRECTED RF: 0 pregabalin [Lyrica] 50 mg capsule 50 mg PO BID RF: 0 ibuprofen 200 mg Tablet 400 mg PO Q6H PRN (Reason: pain) RF: 0 atorvastatin 80 mg tablet 80 mg PO QPM RF: 0 Brilinta 90 mg tablet 90 mg PO BID RF: 0 lisinopril 20 mg tablet 20 mg PO DAILY RF: 0 cyanocobalamin (vitamin B-12) 1,000 mcg tablet 1,000 mcg PO DAILY RF: 0 nitroglycerin 0.4 mg tablet, sublingual 0.4 mg sublingual PRN PRN (Reason: Chest Pain) RF: 0 Referrals: Rupali Anthony PA-C [Primary Care Provider] -
[2020-09-06 15:03] LABS: Add Manual Diff / Slide Review NO; Basophils Absolute Auto 100 /uL (0-100); Basophils Percent Auto 0.7 % (0-2); Eosinophils Absolute Auto 200 /uL (0-450); Eosinophils Percent Auto 1.8 % (2-4); Hematocrit 40.7 % (41-53); Hemoglobin 13.7 g/dL (13.5-17.5); Lymphocytes Absolute Auto 1800 /uL (1100-4500); Lymphocytes Percent Auto 16.5 % (25-40); Mean Corpuscular HGB Conc 33.6 % (30-36); Mean Corpuscular Hemoglobin 30.7 PG (26-34); Mean Corpuscular Volume 91.1 fL (80-100); Monocytes Absolute Auto 700 /uL (0-900); Monocytes Percent Auto 6.5 % (3-14); Neutrophils Absolute Auto 8300 /uL (1500-7000); Neutrophils Percent Auto 74.5 % (50-75); Platelet Count 404 X10^3/uL (150-400); Red Blood Cell Count 4.47 X10^6/uL (4.5-5.9); Red Cell Distribution Width 13.3 % (11.6-14.8); White Blood Cell Count 11.1 X10^3/uL (4.5-11.0)
[2020-09-06 15:13] LABS: Prothrombin Time 11.5 SECONDS (10.1-12.7)
[2020-09-06 15:17] LABS: Alanine Aminotransferase 28 IU/L (<50); Albumin 4.6 g/dL (3.5-5.0); Albumin Globulin Ratio 1.5 (1.0-2.8); Alkaline Phosphatase 69 U/L (38-126); Aspartate Aminotransferase 43 IU/L (17-59); BUN Creatinine Ratio 13.6 (6-22); Bilirubin Total 0.9 mg/dL (0.2-1.3); Blood Urea Nitrogen 14 mg/dL (9-20); Calcium 9.4 mg/dL (8.4-10.2); Carbon Dioxide 26 mmol/L (22-32); Chloride 103 mmol/L (98-107); Estimated Glomerular Filt Rate > 60.0 mL/min (>60); Globulin 3.1 g/dL (1.7-4.1); Glucose 100 mg/dL (80-110); Potassium 4.5 mmol/L (3.4-5.1); Sodium 135 mmol/L (137-145); Total Protein 7.7 g/dL (6.3-8.2)
[2020-09-06 15:35] LABS: HEMOLYSIS 97 (0-50)
[2020-09-06] MEDS: CYCLOBENZAPRINE 10 MG PREPACK 1 BOTTLE MISC (18:04)
[2020-09-06] MEDS: HYDROCODONE/ACET 5/325 PREPACK 1 BOTTLE MISC (18:04)
== END 2020-09-06 18:06 | disposition home or self-care (01) ==
PROVIDERS: Emergency Provider Emergency Medicine; PCP Physician Assistant
DX: S20.211A Contusion of right front wall of thorax, initial encounter (principal); S60.511A Abrasion of right hand, initial encounter; S40.011A Contusion of right shoulder, initial encounter; W19.XXXA Unspecified fall, initial encounter; I10 Essential (primary) hypertension; E78.5 Hyperlipidemia, unspecified; R07.81 Pleurodynia; S61.411A Laceration without foreign body of right hand, initial encounter; I25.10 Atherosclerotic heart disease of native coronary artery without angina pectoris; M48.00 Spinal stenosis, site unspecified
CPT/HCPCS: 71101; 73030; 80053; 85025; 85610; 99284

== ENCOUNTER 2020-09-27 09:38 | Emergency (ER) | payer MEDICARE, SELFPAY ==
[2018-01-21 22:07] VITALS: BMI 30.4
[2020-09-27 09:40] VITALS: BP 159/91; PULSE 60; RESP 15; TEMP 36.6; O2SAT 99; BMI 28.5
[2020-09-27] MEDS: LIDOCAINE 1% (PF) 2 ML INJ (09:46)
--- NOTE | 2020-09-27 09:53 | PC.NURSE ---
provider placed one stitch, bandaid applied.
--- NOTE | 2020-09-27 09:56 | ED.SKABFB ---
HPI - Skin/Abscess/Foreign Bdy General Chief complaint: Skin/Abscess/Foreign Body Stated complaint: cut behind right ear, won't stop bleeding Time Seen by Provider: 09/27/20 09:40 Source: patient Mode of arrival: Ambulatory Limitations: no limitations History of Present Illness HPI narrative: 70-year-old gentleman with a history of hyperlipidemia hypertension coronary artery disease currently on Brilinta had a haircut approximately 48 hours ago and thinks that he suffered a very small scratch on the back of his right your. This small area has continued bleeding despite pressure for the last day. Aside from the continued small amount of bleeding, he has no other complaints. Related Data Home Medications Medication Instructions Recorded Confirmed lisinopril 20 mg PO DAILY 01/20/18 11/22/19 clobetasol 1 applic TOPICAL DIRECTED 01/18/19 11/22/19 ibuprofen 400 mg PO Q6H PRN 01/18/19 11/22/19 metoprolol succinate 25 mg PO DAILY 01/18/19 11/22/19 pregabalin [Lyrica] 50 mg PO BID 01/18/19 11/22/19 cyanocobalamin (vitamin B-12) 1,000 mcg PO DAILY 11/14/19 11/22/19 nitroglycerin 0.4 mg SUBLINGUAL PRN PRN 11/14/19 11/22/19 atorvastatin 80 mg PO QPM 11/22/19 11/22/19 ticagrelor [Brilinta] 90 mg PO BID 11/22/19 11/22/19 Previous Rx's Medication Instructions Recorded cyclobenzaprine 10 mg PO TID PRN #14 tab 09/06/20 hydrocodone-acetaminophen 1 tab PO Q4-6H PRN #10 tab 09/06/20 Allergies Allergy/AdvReac Type Severity Reaction Status Date / Time No Known Drug Allergies Allergy Verified 09/27/20 09:51 Review of Systems Review of Systems Narrative: Pertinent positive and negative findings as per HPI Remainder of review of systems is otherwise unremarkable for Constitutional: Fevers, chills, weakness ENT: No sore throat, neck pain, CV: Chest pain, palpitations, dyspnea on exertion Respiratory: Cough, wheeze, dyspnea GI: Nausea, vomiting, diarrhea, Patient History Medical History CAD (coronary artery disease) COPD (chronic obstructive pulmonary disease) Depression HTN (hypertension) Hyperlipidemia Insomnia Mild cognitive impairment Peripheral neuropathy Spinal stenosis Surgical History Total knee replacement status Social History household members: none lives independently: Yes Smoking Status: Former smoker alcohol intake: current Smoking Status: Former smoker alcohol intake frequency: holidays/special occasions only Substance Use Type: does not use Exam Narrative Exam Narrative: General: Alert appropriate in no acute distress HEENT: The posterior portion of the helix there is a 2 mm superficial abrasion right next to a small venual that continues to bleed. The anterior portion of the helix he has what appears to be a 1 cm in diameter squamous cell skin cancer without ulceration or bleeding Respiratory: Able to speak in full sentences, no obvious respiratory distress Skin: No obvious rashes, warm and dry Neurologic: Grossly intact no obvious asymmetries or abnormalities Psych, appropriate insight and affect, cooperative Initial Vital Signs Initial Vital Signs: Vital Signs Temperature 97.8 F 09/27/20 09:40 Pulse Rate 60 09/27/20 09:40 Respiratory Rate 15 09/27/20 09:40 Blood Pressure 159/91 H 09/27/20 09:40 Pulse Oximetry 99 09/27/20 09:40 Procedures Laceration Repair Right ear: Site: other (Ear) Side (If applicable): right Size (cm): 0.2 Description: other (Superficial abrasion with continued bleeding) Depth: simple, single layer (Five 0 chromic gut is used to over sew the small area of bleeding with hemostasis achieved) Local Anesthetic: lidocaine 1% Amount of anesthesia used (mL): 2 Skin layer closed with: other (Absorbable gut) Size (cm): 5-0 Number of sutures: 1 Technique: horizontal mattress Course Orders Ordered: Discontinued Medications Lidocaine HCl (Lidocaine 1% (Pf)) 2 ml INJ NOW ONE Stop: 09/27/20 09:45 Last Admin: 09/27/20 09:46 Dose: 2 ml Documented by: MARYCRUZ Vital Signs Vital signs: Vital Signs - 8 hr 09/27/20 09:40 Temperature 97.8 F Pulse Rate 60 Respiratory Rate 15 Blood Pressure 159/91 H Pulse Oximetry 99 MDM - Skin/Abscess/Foreign Bdy MDM Narrative Medical decision making narrative: 70-year-old gentleman on Brilinta with a small superficial abrasion that seems to be appropriately positioned right next to a small vein such that, with his Brilinta working well, will not stop bleeding. Small horizontal mattress stitch to over-sew the area of bleeding was effective in controlling bleeding. Incidentally appreciated moderate-size squamous cell cancer on the anterior portion of the helix. Recommended he follow-up with Dermatology. Discharge Plan Departure Patient Disposition: Home Clinical Impression: Laceration, Anticoagulant-induced bleeding Instructions: DI for Laceration Repair -- Simple Activity Restrictions/Additional Instructions: Thank you for coming in today There was a very small little laceration on the back side of your year that looked like it was right next to a very small little vein which is why it continued to bleed. I used suture material that will dissolve in a couple of days and the bleeding was controlled nicely. Please keep a Band-Aid on for the next 24 hours but feel free to go about your usual activities including showering if you desire If you have additional concerns or problems please feel free to return to the emergency department I wish you the best Prescriptions: No Action metoprolol succinate 25 mg tablet extended release 24 hr 25 mg PO DAILY RF: 0 clobetasol 0.05 % ointment 1 applic topical DIRECTED RF: 0 pregabalin [Lyrica] 50 mg capsule 50 mg PO BID RF: 0 ibuprofen 200 mg Tablet 400 mg PO Q6H PRN (Reason: pain) RF: 0 atorvastatin 80 mg tablet 80 mg PO QPM RF: 0 Brilinta 90 mg tablet 90 mg PO BID RF: 0 cyclobenzaprine 10 mg tablet 10 mg PO TID PRN (Reason: muscle spasm) Qty: 14 RF: 0 hydrocodone-acetaminophen 5-325 mg tablet 1 tab PO Q4-6H PRN (Reason: pain) Qty: 10 RF: 0 lisinopril 20 mg tablet 20 mg PO DAILY RF: 0 cyanocobalamin (vitamin B-12) 1,000 mcg tablet 1,000 mcg PO DAILY RF: 0 nitroglycerin 0.4 mg tablet, sublingual 0.4 mg sublingual PRN PRN (Reason: Chest Pain) RF: 0 Referrals: Rupali Anthony PA-C [Primary Care Provider] -
== END 2020-09-27 10:04 | disposition home or self-care (01) ==
PROVIDERS: Emergency Provider Emergency Medicine; PCP Physician Assistant
DX: S01.311A Laceration without foreign body of right ear, initial encounter (principal); I25.10 Atherosclerotic heart disease of native coronary artery without angina pectoris; J44.9 Chronic obstructive pulmonary disease, unspecified; I10 Essential (primary) hypertension; E78.5 Hyperlipidemia, unspecified; Z79.01 Long term (current) use of anticoagulants; W45.8XXA Other foreign body or object entering through skin, initial encounter
CPT/HCPCS: 12011; 99281; 99283

== ENCOUNTER → 2020-12-23 09:04 | Outpatient (CLI) | payer MEDICARE, SELFPAY ==
[2018-01-21 22:07] VITALS: BMI 30.4
--- NOTE | 2020-12-23 | DI.MRI.S_ITS ---
PROCEDURE: MR LUMBAR SPINE WO CON INDICATIONS: Pain in left hip TECHNIQUE: Noncontrast sagittal T1 spin echo and T2 fast echo, sagittal STIR, axial T1 and T2 fast spin echo through the lumbar spine. In cases with scoliosis, additional coronal T2 fast spin echo may be performed. COMPARISON: [facility], MR, MR LUMBAR SPINE WO CON, 03/31/2019, 12:38. FINDINGS: Image quality: Excellent. Alignment and Curvature: The same numbering system which was used on the prior report will be used on the current report. 5 lumbar type vertebral bodies will be assumed. There is loss of normal lumbar lordosis. Mild grade 1 retrolisthesis of L2 on L3, L3 on L4, L4 on L5, and L5 on S1. Bone Marrow: Marrow is of normal overall signal. No acute vertebral body compression fractures. Moderate reactive signal within the endplates adjacent to the L2-L3, L3-L4, and L4-L5 intervertebral discs. Mild reactive signal within the endplates adjacent to the L5-S1 intervertebral disc. Left L4-L5 hemilaminotomy. Spinal Cord: Conus medullaris terminates at the upper L2 level. Visualized cord demonstrates normal signal and size. Small lipoma of the filum terminalis. Paraspinous Soft Tissues: No paravertebral masses. Mild aneurysmal dilatation of the infrarenal abdominal aorta measuring 32 mm. T12-L1: Mild disc height loss. Moderate disc desiccation. Mild diffuse disc bulge. Mild facet and ligamentum flavum hypertrophy. Mild canal stenosis. Mild bilateral foraminal stenosis. No significant change. L1-L2: Moderate disc desiccation. Mild diffuse disc bulge. Mild facet and ligamentum flavum hypertrophy. Mild canal stenosis. Mild bilateral foraminal stenosis. No significant change. L2-L3: Severe disc height loss and desiccation. Moderate diffuse disc bulge/osteophyte. Mild facet and ligamentum flavum hypertrophy. Mild epidural lipomatosis. Mild canal stenosis. Mild bilateral foraminal stenosis. No significant change. L3-L4: Moderate disc desiccation. Mild disc height loss. Mild diffuse disc bulge. Mild facet and ligamentum flavum hypertrophy. Mild epidural lipomatosis. Mild canal stenosis. Mild bilateral foraminal stenosis. No significant change. L4-L5: Moderate disc height loss and desiccation. Moderate diffuse disc bulge. Mild facet hypertrophy bilaterally. Mild canal stenosis. Moderate subarticular foraminal stenosis bilaterally. No significant change. L5-S1: Moderate disc height loss and desiccation. Moderate diffuse disc bulge with superimposed left far lateral broad-based protrusion, as well as right paracentral protrusion. Mild bilateral facet and ligamentum flavum hypertrophy. Mild canal stenosis is present, as before. Severe left and moderate right foraminal stenosis. Left L5 nerve root compression is present, as before. Mild posterior deviation of the right S1 nerve root within the lateral recess, increased from the prior examination. IMPRESSION: 1. Multilevel degenerative disc and facet disease, as well as ligamentum flavum hypertrophy and epidural lipomatosis. 2. Mild multilevel canal stenosis. 3. Multilevel foraminal stenoses, worst at L5-S1 on the left where there is associated intraforaminal nerve root compression. 4. Mild posterior deviation of the right S1 nerve root within the lateral recess at L5-S1. 5. Recommend correlation with clinical symptoms to ascertain relevance of these findings. 6. 5 lumbar type vertebral bodies were presumed for the current report. Plain films of the lumbar spine are recommended for confirmation, prior to any lumbar spinal intervention. 7. Mild aneurysmal dilatation of the abdominal aorta. Annual sonographic surveillance is recommended. Dictated by: Delia Best M.D. on 12/23/2020 at 10:48 Approved by: Delia Best M.D. on 12/23/2020 at 10:55
== END ==
PROVIDERS: PCP Physician Assistant; Referring Provider Physician Assistant; Visit Provider Orthopaedic Surgery
DX: M25.552 Pain in left hip (principal); M51.36 Other intervertebral disc degeneration, lumbar region; M51.37 Other intervertebral disc degeneration, lumbosacral region; M48.061 Spinal stenosis, lumbar region without neurogenic claudication; M48.07 Spinal stenosis, lumbosacral region; E88.2 Lipomatosis, not elsewhere classified
CPT/HCPCS: 72148

== ENCOUNTER 2021-04-13 10:29 | Emergency (ER) | payer MEDICARE, SELFPAY ==
[2018-01-21 22:07] VITALS: BMI 30.4
[2021-04-13 10:44] VITALS: BP 142/72; PULSE 75; RESP 18; TEMP 36.3; O2SAT 99
--- NOTE | 2021-04-13 10:49 | DI.RAD.S_ITS ---
PROCEDURE: XR WRIST LT MIN 3V INDICATIONS: fall 2-3 weeks ago, continued left wrist pain. TECHNIQUE: 4 views of the wrist were acquired. COMPARISON: None. FINDINGS: Bones: No fractures or dislocations. No suspicious bony lesions. Mild triscaphe joint degenerative arthritis. At least moderate 1st carpometacarpal joint degenerative arthritis. 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 Scaphoid view: Scaphoid intact. Apparent widening between the scaphoid and lunate suggesting scapholunate dissociation. There is subchondral lucency in the scaphoid immediately subjacent to the location of the scapholunate ligament. Soft tissues: No suspicious soft tissue calcifications. IMPRESSION: 1. No evidence acute bony abnormality of the wrist. 2. Findings suggest scapholunate dissociation. 3. Degenerative change as described above. Comment: Nonemergent MR arthrography of the wrist may potentially be helpful. Dictated by: Raman Payne M.D. on 04/13/2021 at 11:32 Approved by: Raman Payne M.D. on 04/13/2021 at 11:33
--- NOTE | 2021-04-13 13:27 | PC.NURSE ---
no answer [id number]
--- NOTE | 2021-04-13 14:55 | ED_ITS ---
HPI - Extremity Injury (Upper) <Lucia Murray, [employer] OPERATOR-BC - Last Filed: 04/13/21 18:06> General Chief Complaint: Extremity Injury, Upper Stated Complaint: injured left hand 3wks ago, not improving Time Seen by Provider: 04/13/21 13:22 Source: patient Mode of arrival: Ambulatory Limitations: no limitations History of Present Illness HPI narrative: The patient is a 70-year-old male former smoker with history of hyperlipidemia and hypertension who presents with a chief complaint of an injury to his left hand 3 weeks ago. He tripped over PingMD, had a FOOSH injury. He states that his left wrist is still painful. he came to the emergency department today concerned about a possible fracture. He has been wearing a black lace-up wrist brace. He denies any previous injuries to that area. He denies any other injuries from his fall 3 weeks ago. Related Data Home Medications Medication Instructions Recorded Confirmed lisinopril 20 mg tablet 20 mg PO DAILY 01/20/18 11/22/19 clobetasol 0.05 % topical ointment 1 applic TOPICAL DIRECTED 01/18/19 11/22/19 ibuprofen 200 mg tablet 400 mg PO Q6H PRN 01/18/19 11/22/19 metoprolol succinate 25 mg 25 mg PO DAILY 01/18/19 11/22/19 tablet,extended release 24 hr pregabalin 50 mg capsule 50 mg PO BID 01/18/19 11/22/19 cyanocobalamin (vitamin B-12) 1,000 mcg PO DAILY 11/14/19 11/22/19 1,000 mcg tablet nitroglycerin 0.4 mg sublingual 0.4 mg SUBLINGUAL PRN PRN 11/14/19 11/22/19 tablet atorvastatin 80 mg tablet 80 mg PO QPM 11/22/19 11/22/19 ticagrelor 90 mg tablet (Brilinta) 90 mg PO BID 11/22/19 11/22/19 Previous Rx's Medication Instructions Recorded cyclobenzaprine 10 mg tablet 10 mg PO TID PRN #14 tab 09/06/20 hydrocodone 5 mg-acetaminophen 325 1 tab PO Q4-6H PRN #10 tab 09/06/20 mg tablet Allergies Allergy/AdvReac Type Severity Reaction Status Date / Time No Known Drug Allergies Allergy Verified 04/13/21 10:49 Review of Systems <ARNALDO Albert - Last Filed: 04/13/21 18:06> Review of Systems Narrative: GENERAL: Denies chills, fatigue, malaise, fever, sweats. HEENT: Denies sinus pain, ear pain, sore throat, difficulty swallowing, dizziness. RESPIRATORY: Denies dyspnea, cough, wheezing, hemoptysis, sputum. CARDIOVASCULAR: Denies chest pain, palpitations, orthopnea, edema, GASTROINTESTINAL: Denies nausea, vomiting, abdominal pain, diarrhea, constipation, melena. : Denies dysuria, frequency, incontinence, hematuria, urinary retention. MUSCULOSKELETAL: see HPI SKIN: Denies rash, skin lesions, or other NEUROLOGIC: Denies weakness, headache, numbness, change in speech, confusion, seizures, incoordination. PSYCHIATRIC: No concerning psychosocial issues. 12 point review of systems is negative except for those stated above Patient History <ARNALDO Albert - Last Filed: 04/13/21 18:06> Medical History (Updated 04/13/21 @ 15:56 by ARNALDO Albert) CAD (coronary artery disease) COPD (chronic obstructive pulmonary disease) Depression HTN (hypertension) Hyperlipidemia Insomnia Mild cognitive impairment Peripheral neuropathy Spinal stenosis Surgical History Total knee replacement status Social History household members: none lives independently: Yes Smoking Status: Former smoker alcohol intake: current Smoking Status: Former smoker alcohol intake frequency: holidays/special occasions only Substance Use Type: does not use Exam <ARNALDO Albert - Last Filed: 04/13/21 18:06> Narrative Exam Narrative: GENERAL: This is a well-nourished, well-developed patient, in No acute distress HEAD: Atraumatic. Normocephalic. No temporal or scalp tenderness. EYES: Pupils equal round and reactive. Extraocular motions intact. No scleral icterus. No injection or drainage. ENT: Nose without bleeding, purulent drainage or septal hematoma. wearing a mask NECK: Trachea midline. No JVD or lymphadenopathy. Supple, nontender, no meningeal signs. CARDIOVASCULAR: Regular rate and rhythm RESPIRATORY: no cough. No increased respiratory effort. No accessory muscle use. EXTREMITIES: Pain to palpation noted noted throughout wrist, no snuffbox pain to palpation. Full range of motion noted. Capillary refill less than 2 seconds all fingers left hand. Positive left radial pulse. Patient wearing brace. BACK: Nontender without deformity or crepitance. No flank tenderness. NEURO: AOx3. SKIN: No laceration, abrasion noted left wrist. Initial Vital Signs Initial Vital Signs: Vital Signs Temperature 97.4 F L 04/13/21 10:44 Pulse Rate 75 04/13/21 10:44 Respiratory Rate 18 04/13/21 10:44 Blood Pressure 142/72 H 04/13/21 10:44 Pulse Oximetry 99 04/13/21 10:44 <Lucia Larose DO - Last Filed: 04/14/21 19:35> Initial Vital Signs Initial Vital Signs: Vital Signs Temperature 97.4 F L 04/13/21 10:44 Pulse Rate 75 04/13/21 10:44 Respiratory Rate 18 04/13/21 10:44 Blood Pressure 142/72 H 04/13/21 10:44 Pulse Oximetry 99 04/13/21 10:44 Scores <ARNALDO Albert - Last Filed: 04/13/21 18:06> GCS [place] coma scale eye opening: Spontaneous [place] coma scale verbal response: Orientated [place] coma scale motor response: Obey commands [place] coma scale total score: 15 <Lucia Larose DO - Last Filed: 04/14/21 19:35> GCS Darleen coma scale total score: 15 Course <ARNALDO Albert - Last Filed: 04/13/21 18:06> Orders Ordered: ED Orders 04/13/21 10:49 XR wrist LT min 3V Stat Vital Signs Vital signs: Vital Signs - 8 hr 04/13/21 10:44 04/13/21 16:04 Temperature 97.4 F L Pulse Rate 75 61 Respiratory Rate 18 18 Blood Pressure 142/72 H 125/66 Pulse Oximetry 99 95 <Lucia Larose DO - Last Filed: 04/14/21 19:35> Orders Ordered: ED Orders 04/13/21 10:49 XR wrist LT min 3V Stat Vital Signs Vital signs: Vital Signs - 8 hr 04/13/21 10:44 04/13/21 16:04 Temperature 97.4 F L Pulse Rate 75 61 Respiratory Rate 18 18 Blood Pressure 142/72 H 125/66 Pulse Oximetry 99 95 MDM - Extremity Injury (Upper) <RADHA Albert-BC - Last Filed: 04/13/21 18:06> Imaging Data Extremity x-ray #1: Radiologist's Impression: [address] [place] [id number] ReportSigned Patient: Dru Mcpherson [facility]#: [id number]: 1950cct:[id number]/Sex: 70 / MDate of Service: 04/13/21Loc: EDAccession Number: [id number] Procedure: XR wrist LT min 3V Ordering Provider: Lucia Larose D.O. PROCEDURE: XR WRIST LT MIN 3V INDICATIONS: fall 2-3 weeks ago, continued left wrist pain. TECHNIQUE: 4 views of the wrist were acquired. COMPARISON: None. FINDINGS: Bones: No fractures or dislocations. No suspicious bony lesions. Mild triscaphe joint degenerative arthritis. At least moderate 1st carpometacarpal joint degenerative arthritis. 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 Scaphoid view: Scaphoid intact. Apparent widening between the scaphoid and lunate suggesting scapholunate dissociation. There is subchondral lucency in the scaphoid immediately subjacent to the location of the scapholunate ligament. Soft tissues: No suspicious soft tissue calcifications. IMPRESSION: 1. No evidence acute bony abnormality of the wrist. 2. Findings suggest scapholunate dissociation. 3. Degenerative change as described above. Comment: Nonemergent MR arthrography of the wrist may potentially be helpful. Dictated by: Raman Payne M.D. on 04/13/2021 at 11:32 Approved by: Raman Payne M.D. on 04/13/2021 at 11:33 [facility] Narrative Medical decision making narrative: The patient is a 70-year-old male who presents with a chief complaint of left wrist pain. X-ray shows no acute fracture, though I spoke with Dr. Burden from [facility] given x-ray concern of scapholunate dissociation. She is concerned about a possible right radial fracture. Discussed placing him in a removable splint, the when he has on his okay, follow-up with her. Discussed this at length with patient, include urged rest ice compression elevation as well as [id number] medications as needed and able. Patient has no questions or concerns upon discharge states understanding of return precautions as well as follow-up for care. Discharge Plan Departure Patient Disposition: Home Clinical Impression: Acute wrist pain Qualifiers: Laterality: left Qualified Code(s): M25.532 - Pain in left wrist Instructions: DI for Wrist Fracture, DI for Wrist Pain Activity Restrictions/Additional Instructions: thank you for trusting us with your care today. Dr. Burden reviewed your x-rays and is concerned about the possibility of a very subtle fracture. Please follow-up with her. I have included contact information to her and her office. In the meantime, please use rest ice compression elevation as well as [id number] medications as needed and able for pain. Please come back to the emergency department for any acute concerns. Prescriptions: No Action metoprolol succinate 25 mg tablet extended release 24 hr 25 mg PO DAILY RF: 0 clobetasol 0.05 % ointment 1 applic topical DIRECTED RF: 0 pregabalin [Lyrica] 50 mg capsule 50 mg PO BID RF: 0 ibuprofen 200 mg Tablet 400 mg PO Q6H PRN (Reason: pain) RF: 0 atorvastatin 80 mg tablet 80 mg PO QPM RF: 0 Brilinta 90 mg tablet 90 mg PO BID RF: 0 cyclobenzaprine 10 mg tablet 10 mg PO TID PRN (Reason: muscle spasm) Qty: 14 RF: 0 hydrocodone-acetaminophen 5-325 mg tablet 1 tab PO Q4-6H PRN (Reason: pain) Qty: 10 RF: 0 lisinopril 20 mg tablet 20 mg PO DAILY RF: 0 cyanocobalamin (vitamin B-12) 1,000 mcg tablet 1,000 mcg PO DAILY RF: 0 nitroglycerin 0.4 mg tablet, sublingual 0.4 mg sublingual PRN PRN (Reason: Chest Pain) RF: 0 Referrals: [facility] [Provider Group] Rupali Anthony PA-C [Primary Care Provider] - Mandi Burden MD [Physician] - <Lucia Larose DO - Last Filed: 04/14/21 19:35> Cosign ED Attending Coscassieature Attestation: I was immediately available in the department for consultation. Documentation has been reviewed, discussed with myself and images reviewed. Agree with plan and current course of care.
[2021-04-13 16:04] VITALS: BP 125/66; PULSE 61; RESP 18; O2SAT 95
== END 2021-04-13 16:06 | disposition home or self-care (01) ==
PROVIDERS: Emergency Provider Nurse Practitioner Family; PCP Physician Assistant
DX: M25.532 Pain in left wrist (principal); W19.XXXA Unspecified fall, initial encounter
CPT/HCPCS: 73110; 99283